=== PATIENT | female | born 1955 | race Caucasian/White ===

== ENCOUNTER 2021-03-21 09:07 | Emergency (ER) | payer MEDICARE, SELFPAY ==
--- NOTE | ~2021-03-21 | CT_ITS ---
EXAMINATION: CT ANGIOGRAM OF THE CHEST WITH AND WITHOUT CONTRAST (CT PULMONARY ANGIOGRAM FOR PE) CLINICAL INFORMATION: Reason for Exam Right-sided pleuritic pain, right chest wall tenderness COMPARISON: The report of CT angiography of the chest 08/30/12 is no pulmonary embolus TECHNIQUE: Prior to contrast administration, noncontrast localization images were obtained. Subsequently, multidetector volumetric imaging was performed from the thoracic inlet to below the diaphragms following the administration of 65 mL Omnipaque 350 intravenous contrast. No contrast reaction reported Sagittal, coronal, and MIP oblique sagittal reformatted images were obtained on the CT workstation, uploaded to PACS, and reviewed. This CT examination was performed using dose optimization techniques as appropriate, variously including the following: *Automated exposure control *Adjustment of mA and/or kV according to patient size (this includes techniques or standardized protocols for targeted exams where dose is matched to indication/reason for exam; i.e. extremities or head) *Use of iterative reconstruction technique Total exam dose-length product 315 mGy-cm FINDINGS: Digital washer meat: Devices overlie the patient. Mild tortuosity of the aorta. There is no consolidation or edema. QUALITY OF STUDY/CONTRAST BOLUS: Satisfactory. There is some artifact limiting fine detail. PULMONARY ARTERIES: No pulmonary embolus demonstrated. The main pulmonary arteries are normal caliber THORACIC AORTA: There is motion artifact. There is calcified and noncalcified plaque in the thoracic aorta including the aortic arch. LUNG: Limited by motion particularly in the lower lung zones. There is a 0.3 cm peripheral nodule in the anterolateral left upper lobe (series 7, image 149). This is unchanged when compared to 08/30/12 and there 4 does not require any further evaluation. There is a lung cyst in the posterolateral left costophrenic sulcus region. There could be some mild centrilobular emphysema. PLEURA: There is no pleural fluid or pneumothorax. MEDIASTINUM: There are no enlarged mediastinal or hilar lymph nodes. The esophagus wall is mildly prominent but nonspecific. No evidence of septal bowing or right heart strain. CHEST WALL/AXILLA: No axillary or internal mammary lymphadenopathy. OSSEOUS STRUCTURES: Healed lateral lower right rib fracture. No definite acute rib fracture demonstrated. Mild degenerative change in the lower thoracic spine. UPPER ABDOMEN: There is unchanged thickening of the left adrenal gland which could be related to hyperplasia. On the lowest images there is a fat attenuating structure between the gallbladder, abdominal wall, stomach and colon. This could represent an omental infarct of uncertain chronicity. This area was either not present or not demonstrated on 09/12/14 No reflux of contrast into the hepatic veins to suggest elevated right heart pressures. CT/CT angio chest PE protocol IMPRESSION: No pulmonary embolus demonstrated. Atherosclerosis of the aorta. There is an age indeterminate probable omental infarct in the right upper abdomen. VTE: negative
[2021-03-21 09:08] VITALS: BP 122/71; PULSE 98; RESP 14; TEMP 36.8; O2SAT 95; BMI 25.5
[2021-03-21 09:14] VITALS: RESP 14
--- NOTE | 2021-03-21 09:21 | ECG_ITS ---
Test Reason : CP Blood Pressure : / mmHG Vent. Rate : 087 BPM Atrial Rate : 087 BPM P-R Int : 152 ms QRS Dur : 094 ms QT Int : 376 ms P-R-T Axes : 074 067 013 degrees QTc Int : 452 ms Normal sinus rhythm Anteroseptal infarct , age undetermined Abnormal ECG When compared with ECG of 30-AUG-2012 13:39, Nonspecific T wave abnormality, worse in Inferior leads Referred By: Dimitrios Fitch Electronically Signed By:BRET GLASER
--- NOTE | 2021-03-21 09:26 | ED.CHESTPAIN ---
HPI - Chest Pain General Chief Complaint: Chest Pain Stated Complaint: r sided back/chest pain Time Seen by Provider: 03/21/21 09:21 Source: patient Mode of arrival: EMS Limitations: no limitations History of Present Illness HPI narrative: 65-year-old female who presents emergency department for evaluation of right sided pleuritic chest pain radiating to her right posterior chest x3 days. Patient states that the pain came on suddenly 3 days prior. She states that she woke up with the pain. She states the pain has been constant but waxes and wanes in intensity. The pain is a stabbing sensation which is currently 10/10. The pain is worse with movement and with breathing. Patient states the pain feels similar to the pain that she was experiencing when she fractured ribs on the right side of her chest 4 years prior. She denies any recent injury or fall. She denied fever, chills, cough. She states she has been having some pain in her right calf x3 days but that has any injury. She believes the right calf may be slightly swollen. She is not on hormone replacement. She denies any recent travel. She has not had a blood clot in the past. Patient does have chronic pain and takes oxycodone for her pain. She states that oxycodone has not been helping with her current chest pain. Related Data Previous Rx's Medication Instructions Recorded hydromorphone 2 mg PO Q4-6H PRN #12 tab 03/21/21 prednisone 60 mg PO DAILY 5 Days #15 tab 03/21/21 Allergies Allergy/AdvReac Type Severity Reaction Status Date / Time No Known Allergies Allergy Mild NOT Verified 03/21/21 09:48 APPLICABLE Review of Systems Review of Systems: Yes all other systems are reviewed and are negative [facility] Past Medical History [facility] Narrative: Past medical history: Diabetes mellitus, hypertension, right-sided rib fractures 4 years prior. Past surgical history: Patient states that she had a back surgery in June 2020. Chest states she had a right wrist surgery in January 2020. Social history: She lives at home with her son. She denies tobacco, alcohol and drug use. Social History Social History Alcohol intake: unknown Patient Tobacco Use Status: Tobacco use Unknown Use of substances other than those prescribed or required for medical reasons: No Advance Directives: Yes Advance Directives Information Provided: No Advance Directives on File: No Physical Exam Vital Signs: Vital Signs: Last Vital Signs Temp 98.3 F 03/21/21 09:08 Pulse 89 03/21/21 11:37 Resp 20 03/21/21 11:37 BP 103/55 L 03/21/21 11:37 Pulse Ox 99 03/21/21 11:37 Body Mass Index 25.5 Const: General: cooperative and in distress (Secondary to chest pain) moderate Orientation/consciousness: oriented to person and oriented to place Limitations: no limitations HENMT: Head: Yes normal to inspection, Yes normocephalic and Yes atraumatic Ears: external ears normal General nose exam: Normal external nose present Face and sinus: Yes normal facial exam Mouth: Normal oral and palatal mucosa present Throat: Yes posterior oropharynx normal Eyes: Periorbital: periorbital findings normal Eyelids: Yes eyelids normal Conjunctivae: conjunctivae normal Sclerae: sclerae normal Corneas: corneas normal Pupils: Equal, round and reactive pupils present Direct Ophthalmoscopy: normal light reflex Neck: Neck: Yes full ROM, Yes no lymphadenopathy, Yes no meningeal signs, Yes trachea midline and Yes supple Chest: Chest palpation & inspection: normal inspection of the chest and tenderness (Right anterior and posterior chest) Resp: Effort & Inspection: normal respiratory effort and able to speak in complete sentences Auscultation: clear to auscultation bilaterally Cardio: Rate: regular rate Rhythm: regular rhythm Heart sounds: S1 normal heart sound present, S2 normal heart sound present and no murmurs GI: Inspection: Yes normal to inspection Palpation (GI): Soft to palpation, nontender, no guarding, not rigid and No hepatosplenomegaly present : General: Yes no CVA tenderness Back/Spine/Pelvis: Back: no CVA tenderness Cervical Spine: normal cervical lordosis Thoracic/Lumbar Spine: thoracic and lumbar spine normal to inspection Skin: Lesions: no lesions Rashes: no rashes Wounds: no wounds Neuro: General: oriented to person, oriented to place and no meningeal signs Cranial nerves: Yes CN's II-XII intact bilaterally and Yes Equal, round and reactive pupils present Cognition (Neuro): normal cognition Motor exam (neuro): 5/5 motor strength present throughout Extrem: Other: Mild right calf tenderness compared to the left, no significant difference in the size of her to lower extremities noted, negative Homans sign. Extremities are neurovascular intact Psych: Appearance: well kempt Mental Status: mental status grossly normal Speech and movement: Normal speech and movement present Affect: normal affect Attitude: cooperative Thought process: Normal thought process present Thought content: Normal thought content present Course Course Course Narrative: 65-year-old female who presents emergency department for evaluation of right-sided pleuritic chest pain which is worse with breathing and movement, pain started suddenly 3 days prior and has been constant with waxing and waning intensity. Patient also noted right calf pain x3 days. Patient appear to be in distress secondary to her pain. Vital signs were normal with a pulse of 98 , respiratory rate of 14 and O2 saturation of 95% on room Physical examination did reveal right sided chest wall tenderness. Differential includes but is not limited to rib fractures, pulmonary embolism, aortic dissection, chest wall inflammation. I ordered a CBC, CMP, D-dimer, troponin, EKG. I will obtain a CT pulmonary angiogram to rule out PE. Patient's pain was treated with Toradol 30 mg IV, morphine 4 mg IV. She was also given Zofran 4 mg IV for nausea and 1 L of normal saline IV. 1254: The patient got minimal relief from the IV morphine and IV Toradol. She required Dilaudid 1 mg IV x2. The patient's laboratory evaluation did revealed mild anemia with an H&H of 12.2 and 34.7. Patient did have an elevated D-dimer of 292. High sensitivity troponin was below detectable limits. CT scan pulmonary angiogram did not reveal acute findings to explain the patient's pain, patient does have some inflammatory changes between the gallbladder and the abdominal wall which the radiologist felt could be secondary to an omental infarct however the patient does not have tenderness in this area and I suspect that this is an incidental finding. The patient continues to have right-sided chest wall tenderness no suspect that she has acute costochondritis versus pleurisy. The patient was given Decadron 10 mg IV. She will be started on prednisone 60 mg once a day for 5 days. The patient is having severe pain and is on chronic narcotics that are not helping her pain, therefore I will prescribe Dilaudid 2 mg every 4-6 hours as needed for pain, dispense 10 tablets. She was advised to stop her other narcotic medications while she is taking Dilaudid. MDM - Chest Pain Lab Data Result diagrams: 03/21/21 09:35 03/21/21 09:35 Labs: Lab Results 03/21/21 03/21/21 03/21/21 Range/Units 09:35 09:35 09:35 WBC 6.7 (4.8-10.8) X10*3/uL RBC 3.61 L (4.20-5.50) X10*6/uL Hgb 11.2 L (12.0-16.0) g/dl Hct 34.7 L (37-47) % MCV 96.1 (80-98) fL MCH 31.0 (27.0-33.0) pg MCHC 32.3 (31.0-35.0) g/dl RDW 13.8 (11.0-16.0) % Plt Count 276 (160-400) X10*3/uL MPV 9.9 (9.4-12.3) fL Immature Gran % (Auto) 0.1 (0.0-0.4) % Neut % (Auto) 58.7 (45-73) % Lymph % (Auto) 28.4 (20-40) % [place] % (Auto) 9.1 (2-11) % Eos % (Auto) 3.4 (0-4) % Baso % (Auto) 0.3 (0-2) % Lymph # (Auto) 1.9 (1.2-4.9) X10*3/uL [place] # (Auto) 0.6 (0.1-1.2) X10*3/uL Eos # (Auto) 0.2 (0.0-0.4) X10*3/uL Baso # (Auto) 0.0 (0.0-0.2) X10*3/uL Abs Immat Gran (auto) 0.01 (0.00-0.03) X10*3/uL Absolute Neuts (auto) 3.9 (2.0-8.3) X10*3/uL Absolute Nucleated RBC 0.000 (0.0-0.012) X10*3/uL Nucleated RBC % (auto) 0.0 (0.0-0.2) /100WBC D-Dimer 292 NG/ML Sodium 141 (135-145) mmol/L Potassium 4.5 (3.3-5.1) mmol/L Chloride 105 (96-108) mmol/L Carbon Dioxide 29 (22-29) mmol/L Anion Gap 12 (12-20) BUN 15 (9-16) mg/dL Creatinine 0.74 (0.5-1.4) mg/dL Estim Creat Clear Calc 70.6 Estimated GFR > 60 Random Glucose 92 (60-115) mg/dL Calcium 8.4 (8.4-10.2) mg/dL Total Bilirubin 0.5 (0.0-1.0) mg/dL AST 20 (5-31) U/L ALT 15 (0-31) U/L Alkaline Phosphatase 51 (39-117) U/L Troponin I High Sens (<3.5-17.0) ng/L Total Protein 5.7 L (6.5-8.0) g/dL Albumin 3.6 (3.5-5.0) g/dL Lipase 50 (8-78) U/L 03/21/21 Range/Units 09:35 WBC (4.8-10.8) X10*3/uL RBC (4.20-5.50) X10*6/uL Hgb (12.0-16.0) g/dl Hct (37-47) % MCV (80-98) fL MCH (27.0-33.0) pg MCHC (31.0-35.0) g/dl RDW (11.0-16.0) % Plt Count (160-400) X10*3/uL MPV (9.4-12.3) fL Immature Gran % (Auto) (0.0-0.4) % Neut % (Auto) (45-73) % Lymph % (Auto) (20-40) % [place] % (Auto) (2-11) % Eos % (Auto) (0-4) % Baso % (Auto) (0-2) % Lymph # (Auto) (1.2-4.9) X10*3/uL [place] # (Auto) (0.1-1.2) X10*3/uL Eos # (Auto) (0.0-0.4) X10*3/uL Baso # (Auto) (0.0-0.2) X10*3/uL Abs Immat Gran (auto) (0.00-0.03) X10*3/uL Absolute Neuts (auto) (2.0-8.3) X10*3/uL Absolute Nucleated RBC (0.0-0.012) X10*3/uL Nucleated RBC % (auto) (0.0-0.2) /100WBC D-Dimer NG/ML Sodium (135-145) mmol/L Potassium (3.3-5.1) mmol/L Chloride (96-108) mmol/L Carbon Dioxide (22-29) mmol/L Anion Gap (12-20) BUN (9-16) mg/dL Creatinine (0.5-1.4) mg/dL Estim Creat Clear Calc Estimated GFR Random Glucose (60-115) mg/dL Calcium (8.4-10.2) mg/dL Total Bilirubin (0.0-1.0) mg/dL AST (5-31) U/L ALT (0-31) U/L Alkaline Phosphatase (39-117) U/L Troponin I High Sens < 3.5 (<3.5-17.0) ng/L Total Protein (6.5-8.0) g/dL Albumin (3.5-5.0) g/dL Lipase (8-78) U/L ECG Data ECG #1: Interpretation: 0944: Normal sinus rhythm rate of 87, normal [place] interval, QRS duration and QTC interval. Q-waves V1, V2 and V3, no ST segment elevation, no ST segment depression. No PACs, no PVCs. EKG is consistent with an anteroseptal infarct, most likely old Discharge Plan Discharge Clinical Impression: Acute costochondritis Patient Disposition: Home, Self-Care Instructions: Costochondritis (ED) Additional Instructions: Your blood work was normal except for mild anemia. The CT scan of your chest revealed old rib fractures but no evidence of new rib fractures or blood clots in your lungs which is reassuring. There is an incidental finding of inflammation of the fat in your right upper abdomen but I do not think this is the cause of your chest pain. Your chest pain is most likely caused by inflammation of the chest wall joints (costochondritis) or inflammation of the lining of the lung (pleurisy) The treatment for these conditions is anti-inflammatory medications therefore I am starting you on prednisone 20 mg pills, 3 pills once a day for 5 days. Start your 1st dose tomorrow morning. While you are taking prednisone do not take any other anti-inflammatory medications such as naproxen, Aleve, ibuprofen, Motrin, Advil or aspirin. Given the severity of your pain I am prescribing Dilaudid (hydromorphone) 2 mg pills, take 1 pill every 4-6 hours as needed for pain. While you are taking this narcotic medication I want to to stop your other narcotic medications (oxycodone, hydrocodone). Follow-up with your doctor in 2 days. Please return to the emergency department if your symptoms get worse or if you develop any symptoms that are concerning to you. Prescriptions: New hydromorphone 2 mg tablet 2 mg PO Q4-6H PRN (Reason: pain) Qty: 12 RF: 0 prednisone 20 mg tablet 60 mg PO DAILY 5 Days Qty: 15 RF: 0 Interventions: ED Discharge Assessment Last Done: 03/21/21 14:02 Discharge Date/Time: 03/21/21 14:02
[2021-03-21] MEDS: Ketorolac Tromethamine 30 MG/ML VIAL IVPUSH (09:36)
[2021-03-21] MEDS: Morphine Sulfate 4 MG/ML CARTRIDGE IVPUSH (09:36)
[2021-03-21] MEDS: ondansetron HCL 4 MG/2 ML VIAL IVPUSH (09:36)
[2021-03-21] MEDS: 0.9 % Sodium Chloride 1,000 ML 999 ML IV (09:39)
[2021-03-21 09:45] LABS: MANUAL DIFF FLAG NO
[2021-03-21 10:02] VITALS: BP 112/60; PULSE 88; RESP 17; O2SAT 100
[2021-03-21 10:03] LABS: Alanine Aminotransferase 15 U/L (0-31); Albumin Level 3.6 g/dL (3.5-5.0); Alkaline Phosphatase 51 U/L (39-117); Anion Gap 12 (12-20); Aspartate Amino Transferase 20 U/L (5-31); Bilirubin Total 0.5 mg/dL (0.0-1.0); Blood Urea Nitrogen 15 mg/dL (9-16); Calcium 8.4 mg/dL (8.4-10.2); Carbon Dioxide 29 mmol/L (22-29); Chloride 105 mmol/L (96-108); Creatinine Clr Calc Pharmacy 70.6; Estimated Glomerular Filt Rate > 60; Glucose Random 92 mg/dL (60-115); Lipase 50 U/L (8-78); Potassium 4.5 mmol/L (3.3-5.1); Sodium 141 mmol/L (135-145); Total Protein 5.7 g/dL (6.5-8.0)
[2021-03-21 10:06] LABS: Troponin-I High Sensitivity < 3.5 ng/L (<3.5-17.0)
[2021-03-21 10:07] LABS: Basophils Percent Auto 0.3 % (0-2); Eosinophils Absolute Auto 0.2 X10*3/uL (0.0-0.4); Eosinophils Percent Auto 3.4 % (0-4); Hematocrit 34.7 % (37-47); Hemoglobin 11.2 g/dl (12.0-16.0); Imm Gran Abs Auto 0.01 X10*3/uL (0.00-0.03); Imm Gran Pct Auto 0.1 % (0.0-0.4); Lymphocytes Absolute Auto 1.9 X10*3/uL (1.2-4.9); Lymphocytes Percent Auto 28.4 % (20-40); Mean Corpuscular HGB Conc 32.3 g/dl (31.0-35.0); Mean Corpuscular Volume 96.1 fL (80-98); Mean Platelet Volume 9.9 fL (9.4-12.3); Monocytes Absolute Auto 0.6 X10*3/uL (0.1-1.2); Monocytes Percent Auto 9.1 % (2-11); Neutrophils Absolute Auto 3.9 X10*3/uL (2.0-8.3); Neutrophils Percent Auto 58.7 % (45-73); Platelet Count 276 X10*3/uL (160-400); Red Blood Count 3.61 X10*6/uL (4.20-5.50); Red Cell Distribution Width 13.8 % (11.0-16.0); White Blood Count 6.7 X10*3/uL (4.8-10.8)
--- NOTE | 2021-03-21 10:08 | PC.NURSE ---
Patient given IV morphine, IV torodal and IV zofran for 1010 pain - pt reassessed and still c/o 07/18 pain with no relief
[2021-03-21 10:14] LABS: D Dimer 292 NG/ML
[2021-03-21] MEDS: iohexoL 350 MG/ML 100 ML INFUS..BTL IV (11:17)
[2021-03-21] MEDS: HYDROmorphone HCl 1 MG/ML SYRINGE IVPUSH ×2 (11:28→13:04)
[2021-03-21 11:37] VITALS: BP 103/55; PULSE 89; RESP 20; O2SAT 99
--- NOTE | 2021-03-21 12:43 | PC.NURSE ---
Patient ambulate to restroom with standby assist of the nurse. Patient has slow but steady gait requiring no assistance.
== END 2021-03-21 14:02 | disposition home or self-care (01) ==
PROVIDERS: Emergency Provider Emergency Medicine Emergency Medical Services
DX: M94.0 Chondrocostal junction syndrome [Tietze] (principal); M79.661 Pain in right lower leg; G89.29 Other chronic pain; Z79.891 Long term (current) use of opiate analgesic; E11.9 Type 2 diabetes mellitus without complications; I10 Essential (primary) hypertension
CPT/HCPCS: 36415; 71275; 80053; 83690; 84484; 85025; 85379; 93005; 96361; 96374; 96375; 96376; 99285; J1100; J1170; J1885; J2270; J2405; Q9967

== ENCOUNTER 2021-09-13 17:12 | Emergency (ER) | payer MEDICARE, SELFPAY ==
--- NOTE | ~2021-09-13 | XR_ITS ---
EXAMINATION: XR CHEST CLINICAL INFORMATION: Chest pain COMPARISON: CT angiogram chest 03/21/2021 TECHNIQUE: Frontal view of the chest was obtained. FINDINGS: No significant abnormality is noted involving the heart, lungs, mediastinum, bony thorax or soft tissues. XR/XR chest 1V IMPRESSION: Unremarkable examination.
--- NOTE | ~2021-09-13 | CT_ITS ---
EXAMINATION: CTA CHEST PE STUDY CLINICAL INFORMATION: pleuritic chest pain with positive ddimer COMPARISON: 03/21/2021 TECHNIQUE: Prior to contrast administration, noncontrast localization images were obtained. After the administration of 61 mL of Omnipaque nonionic IV contrast, contiguous thin slice helical images were obtained through the thorax. Reformatted MIP images in the coronal and sagittal planes were obtained at the acquisition workstation. This CT examination was performed using dose optimization techniques as appropriate, variously including the following: *Automated exposure control *Adjustment of mA and/or kV according to patient size (this includes techniques or standardized protocols for targeted exams where dose is matched to indication/reason for exam; i.e. extremities or head) *Use of iterative reconstruction technique DLP: 248 mGy-cm. FINDINGS: The bolus timing on this study was acceptable for visualization of the pulmonary arterial tree. There are no intraluminal pulmonary arterial filling defects present to suggest pulmonary embolism. Incidental distal mucous impacted bronchi in the posterior right lower lobe incidentally seen but no suspicious focal airspace disease. No abnormal pulmonary nodules or masses are appreciated. No significant hilar or mediastinal adenopathy. There is no evidence of pleural effusion or pneumothorax. The heart is normal in size. No evidence of ventricular septal bowing or right heart strain. Great vessels are normal. Otherwise the mediastinum is unremarkable. There is no pericardial effusion or pericardial thickening. Limited evaluation of the upper abdominal viscera demonstrates a well-demarcated focal fatty region anterior to the liver edge possibly representing an area of prior fat necrosis similar to the study in retrospect. CT/CT angio chest PE protocol IMPRESSION: No evidence for pulmonary emboli. No suspicious focal airspace disease. VTE: Negative
--- NOTE | 2021-09-13 17:17 | ECG_ITS ---
Test Reason : CHEST PAIN Blood Pressure : / mmHG Vent. Rate : 085 BPM Atrial Rate : 085 BPM P-R Int : 154 ms QRS Dur : 090 ms QT Int : 382 ms P-R-T Axes : 083 046 019 degrees QTc Int : 454 ms Normal sinus rhythm Septal infarct (cited on or before 21-MAR-2021) Abnormal ECG When compared with ECG of 21-MAR-2021 09:44, Nonspecific T wave abnormality, improved in Inferior leads Referred By: Generic ED Physician Electronically Signed By:Rajan Robertson
[2021-09-13 17:25] VITALS: BP 154/94; PULSE 107; RESP 20; TEMP 36.6; O2SAT 96; BMI 25.2
[2021-09-13 18:09] LABS: MANUAL DIFF FLAG NO
[2021-09-13 18:11] LABS: Basophils Percent Auto 0.3 % (0-2); Eosinophils Absolute Auto 0.1 X10*3/uL (0.0-0.4); Eosinophils Percent Auto 1.2 % (0-4); Hematocrit 38.7 % (37.0-47.0); Hemoglobin 12.3 g/dl (12.0-16.0); Imm Gran Abs Auto 0.02 X10*3/uL (0.00-0.03); Imm Gran Pct Auto 0.3 % (0.0-0.4); Lymphocytes Absolute Auto 1.5 X10*3/uL (1.2-4.9); Lymphocytes Percent Auto 25.9 % (20-40); Mean Corpuscular HGB Conc 31.8 g/dl (31.0-35.0); Mean Corpuscular Hemoglobin 29.1 pg (27.0-33.0); Mean Corpuscular Volume 91.7 fL (80.0-98.0); Mean Platelet Volume 9.3 fL (9.4-12.3); Monocytes Absolute Auto 0.5 X10*3/uL (0.1-1.2); Monocytes Percent Auto 8.7 % (2-11); Neutrophils Absolute Auto 3.8 x10*3/uL (2.0-8.3); Neutrophils Percent Auto 63.6 % (45-73); Platelet Count 372 X10*3/uL (160-400); Red Blood Count 4.22 X10*6/uL (4.20-5.50); Red Cell Distribution Width 13.9 % (11.0-16.0)
[2021-09-13 18:24] LABS: Anion Gap 12 (12-20); Blood Urea Nitrogen 11 mg/dL (9-16); Calcium 9.5 mg/dL (8.4-10.2); Carbon Dioxide 27 mmol/L (22-29); Chloride 105 mmol/L (96-108); Creatinine Clr Calc Pharmacy 69.3; Estimated Glomerular Filt Rate > 60; Glucose Random 181 mg/dL (60-115); Potassium 4.3 mmol/L (3.3-5.1); Sodium 140 mmol/L (135-145)
[2021-09-13 18:31] LABS: Troponin-I High Sensitivity < 3.5 ng/L (<3.5-17.0)
--- NOTE | 2021-09-13 19:36 | ED.CHESTPAIN ---
HPI - Chest Pain General Chief Complaint: Chest Pain <Robin Murphy MD - Last Filed: 09/13/21 19:47> Stated Complaint: CHEST PAIN <Robin Murphy MD - Last Filed: 09/13/21 19:47> Time Seen by Provider: 09/13/21 19:36 <Robin Murphy MD - Last Filed: 09/13/21 19:47> Source: patient <Robin Murphy MD - Last Filed: 09/13/21 19:47> Mode of arrival: ambulatory <Robin Murphy MD - Last Filed: 09/13/21 19:47> Limitations: no limitations <Robin Murphy MD - Last Filed: 09/13/21 19:47> History of Present Illness HPI narrative: patient states that she has stabbing pain to her chest, pain started after she lost money and she feels it maybe from stress. patient claims pain with shortness of breath, also states she has a bulging disk in her back that is causing her problems <Robin Murphy MD - Last Filed: 09/13/21 19:47> MD complaint: chest pain <Robin Murphy MD - Last Filed: 09/13/21 19:47> Onset (ago): day(s) <Robin Murphy MD - Last Filed: 09/13/21 19:47> Timing of current episode: constant <Robin Murphy MD - Last Filed: 09/13/21 19:47> Onset: during rest and during exertion <Robin Murphy MD - Last Filed: 09/13/21 19:47> Pain location: left chest <Robin Murphy MD - Last Filed: 09/13/21 19:47> Pain radiation: back <Robin Murphy MD - Last Filed: 09/13/21 19:47> Severity: moderate <Robin Murphy MD - Last Filed: 09/13/21 19:47> Quality: sharp <Robin Murphy MD - Last Filed: 09/13/21 19:47> Relieving factors: nothing <Robin Murphy MD - Last Filed: 09/13/21 19:47> Exacerbating factors: movement <Robin Murphy MD - Last Filed: 09/13/21 19:47> Related Data Home Medications: Previous Rx's Medication Instructions Recorded hydromorphone 2 mg tablet 2 mg PO Q4-6H PRN #12 tab 03/21/21 prednisone 20 mg tablet 60 mg PO DAILY 5 Days #15 tab 03/21/21 <Robin Murphy MD - Last Filed: 09/13/21 19:47> Allergies/Adverse Reactions: Allergies Allergy/AdvReac Type Severity Reaction Status Date / Time No Known Allergies Allergy Mild NOT Verified 03/21/21 09:48 APPLICABLE <Robin Murphy MD - Last Filed: 09/13/21 19:47> Review of Systems Constitutional: Constitutional: Reports no additional constitutional complaints <Robin Murphy MD - Last Filed: 09/13/21 19:47> Eyes: Eyes: Reports no additional eye complaints <Robin Murphy MD - Last Filed: 09/13/21 19:47> ENT: Denies dizziness <Robin Murphy MD - Last Filed: 09/13/21 19:47> Cardiovascular: Cardiovascular: Reports no additional cardiovascular complaints <Robin Murphy MD - Last Filed: 09/13/21 19:47> Respiratory: Respiratory: Reports as per HPI <Robin Murphy MD - Last Filed: 09/13/21 19:47> Gastrointestinal: Gastrointestinal: Reports no additional gastrointestinal complaints <Robin Murphy MD - Last Filed: 09/13/21 19:47> Genitourinary: Genitourinary: Reports no additional female genitourinary complaints <Robin Murphy MD - Last Filed: 09/13/21 19:47> Musculoskeletal: Musculoskeletal: Reports no additional musculoskeletal complaints <Robin Murphy MD - Last Filed: 09/13/21 19:47> Integumentary/Breasts: Skin/Breast: Denies rash <Robin Murphy MD - Last Filed: 09/13/21 19:47> Neurologic: Reports system reviewed and no additional complaints, except as documented, Denies dizziness and Denies Sensory deficit (Neuro) <Robin Murphy MD - Last Filed: 09/13/21 19:47> Psychiatric: Psychiatric: Denies anxiety <Robin Murphy MD - Last Filed: 09/13/21 19:47> [facility] Social History Social History: Social History Alcohol intake: unknown Patient Tobacco Use Status: Tobacco use Unknown Advance Directives: No Advance Directives Information Provided: Yes <Robin Murphy MD - Last Filed: 09/13/21 19:47> Physical Exam Vital Signs: Vital Signs: Last Vital Signs Temp 97.8 F 09/13/21 17:25 Pulse 107 H 09/13/21 17:25 Resp 20 09/13/21 17:25 BP 154/94 H 09/13/21 17:25 Pulse Ox 96 09/13/21 17:25 BMI result Body Mass Index 25.2 <Robin Murphy MD - Last Filed: 09/13/21 19:47> Vital Signs: Last Vital Signs Temp 97.8 F 09/13/21 17:25 Pulse 107 H 09/13/21 17:25 Resp 20 09/13/21 17:25 BP 154/94 H 09/13/21 17:25 Pulse Ox 96 09/13/21 17:25 BMI result Body Mass Index 25.2 <Diana Robertson MD - Last Filed: 09/13/21 22:33> Const: Other: patient slightly unkept with pain out of proportion to physical findings <Robin Murphy MD - Last Filed: 09/13/21 19:47> Nutritional Appearance: average body habitus <Robin Murphy MD - Last Filed: 09/13/21 19:47> Orientation/consciousness: oriented to person and patient oriented x3 <Robin Murphy MD - Last Filed: 09/13/21 19:47> Limitations: no limitations <Robin Murphy MD - Last Filed: 09/13/21 19:47> HENMT: Head: Yes normal to inspection <Robin Murphy MD - Last Filed: 09/13/21 19:47> Ears: external ears normal <Robin Murphy MD - Last Filed: 09/13/21 19:47> General nose exam: Normal external nose present <Robin Murphy MD - Last Filed: 09/13/21 19:47> Mouth: Normal oral and palatal mucosa present and oropharynx normal <Robin Murphy MD - Last Filed: 09/13/21 19:47> Throat: Yes posterior oropharynx normal <Robin Murphy MD - Last Filed: 09/13/21 19:47> Eyes: General: appearance normal, both eyes and all related structures <Robin Murphy MD - Last Filed: 09/13/21 19:47> Neck: Other: supple <Robin Murphy MD - Last Filed: 09/13/21 19:47> Neck: Yes normal visual inspection <Robin Murphy MD - Last Filed: 09/13/21 19:47> Chest: Chest palpation & inspection: normal inspection of the chest <Robin Murphy MD - Last Filed: 09/13/21 19:47> Resp: Auscultation: clear to auscultation bilaterally <Robin Murphy MD - Last Filed: 09/13/21 19:47> Cardio: Jugular venous distension: no JVD <Robin Murphy MD - Last Filed: 09/13/21 19:47> Rate: regular rate <Robin Murphy MD - Last Filed: 09/13/21 19:47> Rhythm: regular rhythm <Robin Murphy MD - Last Filed: 09/13/21 19:47> Heart sounds: S1 normal heart sound present and S2 normal heart sound present <Robin Murphy MD - Last Filed: 09/13/21 19:47> GI: Inspection: Yes normal to inspection <Robin Murphy MD - Last Filed: 09/13/21 19:47> Palpation (GI): Soft to palpation, nontender and No hepatosplenomegaly present <Robin Murphy MD - Last Filed: 09/13/21 19:47> Auscultation: normal bowel sounds <Robin Murphy MD - Last Filed: 09/13/21 19:47> : General: Yes no CVA tenderness <MD Delbert Schaefer Last Filed: 09/13/21 19:47> Back/Spine/Pelvis: Back: no CVA tenderness <Robin Murphy MD - Last Filed: 09/13/21 19:47> Skin: General skin exam: no rashes or lesions noted <Robin Murphy MD - Last Filed: 09/13/21 19:47> Neuro: General: oriented to person and patient oriented x3 <Robin Murphy MD - Last Filed: 09/13/21 19:47> Cranial nerves: Yes CN's II-XII intact bilaterally <Robin Murphy MD - Last Filed: 09/13/21 19:47> Motor exam (neuro): 5/5 motor strength present throughout <Robin Murphy MD - Last Filed: 09/13/21 19:47> Sensory Exam: No Sensory deficit (Neuro) <Robin Murphy MD - Last Filed: 09/13/21 19:47> Extrem: General: Yes normal to inspection <Robin Murphy MD - Last Filed: 09/13/21 19:47> Psych: Other: dramatic <Robin Murphy MD - Last Filed: 09/13/21 19:47> Course Course Course Narrative: I received sign-out from Dr. Murphy. CT for PE negative for DVT. I discussed the results with the patient, patient states that she feels much better now. Patient ready for discharge <Diana Robertson MD - Last Filed: 09/13/21 22:33> MDM - Chest Pain Lab Data Result diagrams: : 09/13/21 18:02 09/13/21 18:02 <Robin Murphy MD - Last Filed: 09/13/21 19:47> Labs: Lab Results 09/13/21 09/13/21 09/13/21 Range/Units 18:02 18:02 18:02 WBC 6.0 (4.8-10.8) X10*3/uL RBC 4.22 (4.20-5.50) X10*6/uL Hgb 12.3 (12.0-16.0) g/dl Hct 38.7 (37.0-47.0) % MCV 91.7 (80.0-98.0) fL MCH 29.1 (27.0-33.0) pg MCHC 31.8 (31.0-35.0) g/dl RDW 13.9 (11.0-16.0) % Plt Count 372 (160-400) X10*3/uL MPV 9.3 L (9.4-12.3) fL Immature Gran % (Auto) 0.3 (0.0-0.4) % Neut % (Auto) 63.6 (45-73) % Lymph % (Auto) 25.9 (20-40) % Wilkes % (Auto) 8.7 (2-11) % Eos % (Auto) 1.2 (0-4) % Baso % (Auto) 0.3 (0-2) % Lymph # (Auto) 1.5 (1.2-4.9) X10*3/uL Wilkes # (Auto) 0.5 (0.1-1.2) X10*3/uL Eos # (Auto) 0.1 (0.0-0.4) X10*3/uL Baso # (Auto) 0.0 (0.0-0.2) X10*3/uL Abs Immat Gran (auto) 0.02 (0.00-0.03) X10*3/uL Absolute Neuts (auto) 3.8 (2.0-8.3) x10*3/uL Absolute Nucleated RBC 0.000 (0.0-0.012) X10*3/uL Nucleated RBC % (auto) 0.0 (0.0-0.2) /100WBC Sodium 140 (135-145) mmol/L Potassium 4.3 (3.3-5.1) mmol/L Chloride 105 (96-108) mmol/L Carbon Dioxide 27 (22-29) mmol/L Anion Gap 12 (12-20) BUN 11 (9-16) mg/dL Creatinine 0.75 (0.5-1.4) mg/dL Estim Creat Clear Calc 69.3 Estimated GFR > 60 Random Glucose 181 H (60-115) mg/dL Calcium 9.5 D (8.4-10.2) mg/dL Troponin I High Sens < 3.5 (<3.5-17.0) ng/L <Robin Murphy MD - Last Filed: 09/13/21 19:47> Lab Results 09/13/21 09/13/21 09/13/21 Range/Units 18:02 18:02 18:02 WBC 6.0 (4.8-10.8) X10*3/uL RBC 4.22 (4.20-5.50) X10*6/uL Hgb 12.3 (12.0-16.0) g/dl Hct 38.7 (37.0-47.0) % MCV 91.7 (80.0-98.0) fL MCH 29.1 (27.0-33.0) pg MCHC 31.8 (31.0-35.0) g/dl RDW 13.9 (11.0-16.0) % Plt Count 372 (160-400) X10*3/uL MPV 9.3 L (9.4-12.3) fL Immature Gran % (Auto) 0.3 (0.0-0.4) % Neut % (Auto) 63.6 (45-73) % Lymph % (Auto) 25.9 (20-40) % Wilkes % (Auto) 8.7 (2-11) % Eos % (Auto) 1.2 (0-4) % Baso % (Auto) 0.3 (0-2) % Lymph # (Auto) 1.5 (1.2-4.9) X10*3/uL Wilkes # (Auto) 0.5 (0.1-1.2) X10*3/uL Eos # (Auto) 0.1 (0.0-0.4) X10*3/uL Baso # (Auto) 0.0 (0.0-0.2) X10*3/uL Abs Immat Gran (auto) 0.02 (0.00-0.03) X10*3/uL Absolute Neuts (auto) 3.8 (2.0-8.3) x10*3/uL Absolute Nucleated RBC 0.000 (0.0-0.012) X10*3/uL Nucleated RBC % (auto) 0.0 (0.0-0.2) /100WBC Sodium 140 (135-145) mmol/L Potassium 4.3 (3.3-5.1) mmol/L Chloride 105 (96-108) mmol/L Carbon Dioxide 27 (22-29) mmol/L Anion Gap 12 (12-20) BUN 11 (9-16) mg/dL Creatinine 0.75 (0.5-1.4) mg/dL Estim Creat Clear Calc 69.3 Estimated GFR > 60 Random Glucose 181 H (60-115) mg/dL Calcium 9.5 D (8.4-10.2) mg/dL Troponin I High Sens < 3.5 (<3.5-17.0) ng/L <Diana Robertson MD - Last Filed: 09/13/21 22:33> Imaging Data Chest x-ray: Radiologist's impression: IMPRESSION: Unremarkable examination. ? <Robin Murphy MD - Last Filed: 09/13/21 19:47> CT PE: Radiologist's impression: FINDINGS: The bolus timing on this study was acceptable for visualization of the pulmonary arterial tree. There are no intraluminal pulmonary arterial filling defects present to suggest pulmonary embolism. Incidental distal mucous impacted bronchi in the posterior right lower lobe incidentally seen but no suspicious focal airspace disease. No abnormal pulmonary nodules or masses are appreciated. No significant hilar or mediastinal adenopathy.? There is no evidence of pleural effusion or pneumothorax. The heart is normal in size. No evidence of ventricular septal bowing or right heart strain. Great vessels are normal. Otherwise the mediastinum is unremarkable.? There is no pericardial effusion or pericardial thickening. Limited evaluation of the upper abdominal viscera demonstrates a well-demarcated focal fatty region anterior to the liver edge possibly representing an area of prior fat necrosis similar to the study in retrospect. CT/CT angio chest PE protocol IMPRESSION: No evidence for pulmonary emboli. No suspicious focal airspace disease. ? VTE: Negative <Diana Robertson MD - Last Filed: 09/13/21 22:33> Discharge Plan Discharge Clinical Impression: Atypical chest pain <Robin Murphy MD - Last Filed: 09/13/21 19:47> Patient Disposition: Home, Self-Care <Robin Murphy MD - Last Filed: 09/13/21 19:47> Instructions: Chest Pain (ED) <Robin Murphy MD - Last Filed: 09/13/21 19:47> Additional Instructions: Please follow-up with your primary care physician tomorrow. If you have any worsening or new symptoms, please return to the emergency room or call 911 <Robin Murphy MD - Last Filed: 09/13/21 19:47> Prescriptions: No Action hydromorphone 2 mg tablet 2 mg PO Q4-6H PRN (Reason: pain) Qty: 12 RF: 0 prednisone 20 mg tablet 60 mg PO DAILY 5 Days Qty: 15 RF: 0 <Robin Murphy MD - Last Filed: 09/13/21 19:47>
[2021-09-13] MEDS: Ketorolac Tromethamine 30 MG/ML VIAL IVPUSH (20:33)
[2021-09-13] MEDS: iohexoL 350 MG/ML 100 ML INFUS..BTL IV (21:04)
[2021-09-13] MEDS: Acetaminophen 325 MG TABLET 975 MG PO (21:18)
--- NOTE | 2021-09-13 21:36 | PC.NURSE ---
pt states she is tired of sitting here and wants to leave
== END 2021-09-13 22:42 | disposition home or self-care (01) ==
PROVIDERS: Emergency Provider Emergency Medicine
DX: R07.89 Other chest pain (principal)
CPT/HCPCS: 36415; 71045; 71275; 80048; 84484; 85025; 93005; 96374; 99283; 99284; J1885; Q9967

== ENCOUNTER 2022-02-07 17:19 | Emergency (ER) | payer MEDICARE, SELFPAY ==
--- NOTE | ~2022-02-07 | XR_ITS ---
EXAMINATION: XR CHEST CLINICAL INFORMATION: Chest wall pain COMPARISON: Chest x-ray 09/13/2021 TECHNIQUE: Frontal portable view of the chest was obtained. 6:30 PM FINDINGS: No significant abnormality is noted involving the heart, lungs, mediastinum, bony thorax or soft tissues. XR/XR chest 1V IMPRESSION: Unremarkable examination.
--- NOTE | ~2022-02-07 | CT_ITS ---
EXAMINATION: CTA CHEST PE STUDY, CT ABDOMEN AND PELVIS CLINICAL INFORMATION: Severe lower back pain. Pelvic pain. Sob, pleuritic cp COMPARISON: 09/13/2021 CT scan TECHNIQUE: Prior to contrast administration, noncontrast localization images were obtained. After the administration of 85 IV contrast, contiguous thin slice helical images were obtained through the thorax. Following this the examination was continued through the abdomen and then pelvis. Reformatted MIP images in the coronal and sagittal planes as well as thin slice reformatted images of coronal and sagittal planes were obtained at the acquisition workstation. This CT examination was performed using dose optimization techniques as appropriate, variously including the following: *Automated exposure control *Adjustment of mA and/or kV according to patient size (this includes techniques or standardized protocols for targeted exams where dose is matched to indication/reason for exam; i.e. extremities or head) *Use of iterative reconstruction technique DLP: 845 mGy-cm. FINDINGS: CHEST: The bolus timing on this study was acceptable for visualization of the pulmonary arterial tree. There are no intraluminal pulmonary arterial filling defects present to suggest pulmonary embolism. The lungs are clear. Small bulla lateral left base. No abnormal pulmonary nodules or masses are appreciated. No significant hilar or mediastinal adenopathy. There is no evidence of pleural effusion or pneumothorax. The heart is normal in size. No evidence of ventricular septal bowing or right heart strain. Vascular calcification within the aorta again noted. There is no pericardial effusion or pericardial thickening. ABDOMEN/PELVIS: Liver, Gallbladder and Biliary Tree: The liver is normal in size, shape, and attenuation. Tiny low-attenuation cyst in the inferior right lobe the liver too small to characterize further but otherwise no significant focal hepatic lesion or biliary ductal dilatation is present. Focal region of probable chronic fat necrosis along the anterior right liver margin similar to the prior study and of no acute significance. The gallbladder is unremarkable with no evidence of radiopaque gallstones, gallbladder wall thickening, or obvious pericholecystic inflammatory changes. Pancreas: Unremarkable. Spleen: Unremarkable. Adrenal Glands: Unremarkable. Kidneys and Ureters: The kidneys are normal in size, shape, and attenuation. No hydronephrosis, hydroureter, or calculi seen. No perinephric stranding. Bladder: Unremarkable. Gastrointestinal Tract: Extensive colonic diverticulosis but no colonic wall thickening or pericolonic inflammatory change to suggest diverticulitis. The appendix is not well delineated on the study. Visualized small bowel grossly unremarkable. Stomach is relatively distended but otherwise unremarkable. Abdominal Wall: No significant hernia is appreciated. Lymphovascular Structures: Vascular calculation within the aorta iliac system. Incidental retroaortic left renal vein. No bulky retroperitoneal or mesenteric adenopathy Pelvic Viscera: Unremarkable. Osseous Structures: Multilevel degenerative changes in the spine with endplate degenerative changes seen in the visualized cervical spine, upper thoracic spine, and lower lumbar spine. CT/CT angio chest PE protocol IMPRESSION: No evidence for pulmonary emboli. No focal airspace disease. No acute intra-abdominal findings. There is diverticulosis but no obvious diverticulitis. Degenerative changes in the spine VTE: Negative
[2022-02-07 17:32] VITALS: BP 116/70; BP 146/94; PULSE 90; PULSE 99; RESP 20; TEMP 36.7; O2SAT 97; BMI 26.5
[2022-02-07 17:36] VITALS: PULSE 98; RESP 20
--- NOTE | 2022-02-07 17:39 | ECG_ITS ---
Test Reason : chest pain Blood Pressure : / mmHG Vent. Rate : 089 BPM Atrial Rate : 089 BPM P-R Int : 156 ms QRS Dur : 092 ms QT Int : 354 ms P-R-T Axes : 074 070 055 degrees QTc Int : 430 ms Normal sinus rhythm Septal infarct (cited on or before 21-MAR-2021) Abnormal ECG When compared with ECG of 13-SEP-2021 17:55, Nonspecific T wave abnormality now evident in Lateral leads Referred By: Generic ED Physician Electronically Signed By:EFRAIN JOHNSON MD
--- NOTE | 2022-02-07 17:48 | ED_ITS ---
HPI - Chest Pain General Chief Complaint: Chest Pain Stated Complaint: R SIDE CP FOR DAYS Time Seen by Provider: 02/07/22 17:39 Source: patient and EMS Mode of arrival: EMS Limitations: no limitations History of Present Illness HPI narrative: This is a 66-year-old female history of diabetes, hypertension, right-sided rib fracture 4 years ago presenting to the emergency department with complaints of right-sided pleuritic chest pain worse with deep breathing and movement that at times radiates to her back X2 weeks. She tells me that this has been going on for the past 2 weeks, she tells me that the pain is a 10/10 stabbing pain and it is horrible. Patient is screaming out in pain during my examination. Patient tells me this has happened to her before however this time it is worse than usual. She denies any recent trauma, shortness of breath, nausea, vomiting, abdominal pain, headache, dizziness, leg swelling, calf pain. MD complaint: chest pain Onset (ago): week(s) (2) Timing of current episode: episodic Prior episodes: Yes Onset: during rest Pain location: right chest Pain radiation: back Severity: severe Pain scale (0-10): 10 Quality: sharp Relieving factors: nothing Exacerbating factors: movement Treatment prior to arrival: none Related Data Previous Rx's Medication Instructions Recorded hydromorphone 2 mg tablet 2 mg PO Q4-6H PRN #12 tab 03/21/21 prednisone 20 mg tablet 60 mg PO DAILY 5 Days #15 tab 03/21/21 lidocaine 5 % topical patch 1 patch TOPICAL DAILY PRN #15 ea 02/07/22 Allergies Allergy/AdvReac Type Severity Reaction Status Date / Time No Known Allergies Allergy Mild NOT Verified 03/21/21 09:48 APPLICABLE Review of Systems Review of Systems: Constitutional : No Weight loss, No Fever, No Chills, No Fatigue, No Malaise ENT/Mouth : No sore throat, No Rhinorrhea Eyes: No Eye Pain, No Swelling, No Redness Cardiovascular : + Chest Pain, No SOB, No Dyspnea on Exertion, No Orthopnea, No Edema, No Palpitations Respiratory : No Cough, No Sputum, No Wheezing Gastrointestinal : No Nausea, No Vomiting, No Diarrhea, No Constipation, No abdominal Pain, No Hematochezia, No Melena Genitourinary : No Dysuria, No Urinary Frequency, No Hematuria, Musculoskeletal : No joint pain, No Myalgias, No Joint Swelling Skin : No Skin Lesions, No rash Neuro : No Weakness, No Numbness, No Dizziness, No Headache Psych : No Anxiety/Panic, No Depression All other systems reviewed and are negative Yes all other systems are reviewed and are negative [facility] Past Medical History Attestation statement: The following information was validated with the patient. Source: old records reviewed and nursing notes reviewed Social History Social History Alcohol intake: unknown Patient Tobacco Use Status: Never used Tobacco Use of substances other than those prescribed or required for medical reasons: No Advance Directives: No Advance Directives Information Provided: No Physical Exam Vital Signs: Vital Signs: Last Vital Signs Temp 98 F 02/07/22 22:49 Pulse 97 02/07/22 22:49 Resp 18 02/07/22 22:49 BP 112/71 02/07/22 22:49 Pulse Ox 96 02/07/22 22:49 BMI result Body Mass Index 26.5 VSS Appearance: Alert.? Oriented X3.? No acute distress.? Patient screaming in pain. Head: Normocephalic, atraumatic, no step-offs or deformities Eyes: Pupils equal, round and reactive to light.? ENT: Pharynx normal.? Neck: Normal inspection.? Neck supple.? CVS: Normal heart rate and rhythm.? Pulses normal.?+ pain with palpation of right sided anterior chest wall no overlying skin changes Respiratory: No respiratory distress.? Breath sounds normal.? Abdomen: Soft and nontender.? Skin: Skin warm and dry.? Normal skin color.? Normal skin turgor.? Extremities: No lower extremity edema.? No calf ttp. 5/5 strength to bilateral upper and lower extremities Back: No midline tenderness, no C-spine tenderness, full range of motion, no CVA tenderness bilaterally Neuro: Oriented X 3.? No motor deficit.? No sensory deficit. CN 2-12 intact Course Reevaluation(s) Reevaluation #1: Patient screaming out that she is having muscle spasms, at this time Valium given. Time: 18:28 Reevaluation #2: Patient noted to have a mild anemia denies rectal bleeding or vomiting blood. magnesium 1.2 patient will be given IV 2 g magnesium, troponin is negative and EKG is nonischemic, unlikely that this is ACS. COVID negative. Ethanol negative. Urine toxicology and UA pending. Time: 21:25 Reevaluation #3: Chest x-ray is unremarkable. CT of the abdomen and pelvis with contrast with no acute intra-abdominal findings. There is diverticulosis but no obvious diverticulitis. There are degenerative changes within the spine. No evidence of pulmonary emboli, no focal airspace disease. CT is negative. Based off patient history and physical examination and pain being reproducible upon palpat ion this is likely costochondritis. At this time patient will be discharged home with education for ibuprofen and Tylenol, and lidocaine patches. Comfortable with discharge home with PCP follow-up. To note patient's presentation is bizarre when staff members approach her she starts screaming in pain however when she is left alone in the room she is quiet and not complaining of pain. I looked at patient's mass pat looks like patient has medications for chronic pain. No need to prescribe opiates at this time. I did speak to a provider from [place] about this patient and explained to them that patient's workup is negative and she will be discharged home. I advised them that she should fo llow-up with them return with new or worsening symptom Time: 21:27 Additional Reevaluation(s): 2300 Urine clean for infection. Toxicology positive for opiates and benzodiazepine. 2308 This patient tells me that the only medication that works for her is Dilaudid and she had it multiple times last time. She does mention to me that last time she got into went home she got picked up by [place] police department because this medication did not hit her right and she was drowsy and had to jump a fence. I do not feel comfortable discharging patient with a narcotic medication prior to discharge. Patient can take her medications at home that have been prescribed for her for chronic pain Repeating mag at this time, told patient if it improves can be discharged due to negative workup. patient tells me that she is not leaving hospital. She is being extremely rude to staff members I was called to the bedside she is sc reaming telling us we killed her son. She is screaming at the past, being very aggressive towards myself, nursing, emergency department technicians. I told patient that she could not be acting like this in an emergency department, and I told her that when she has been medically cleared she is clear for discharge. She tells me she would refuse to leave and she is not moving from her bed I told her if needed will get security to escort her out of the property. 0021 Nursing at the bedside witness patient threw herself on the ground. Stating that now her legs hurt and needs dilauded. Asking for pain medicine. Aggressive, security called to the bedside. 0026 Patients mag improved, will be DC home with PCP follow-up. Advised to return with new or worsening symptoms. Comfortable discharge home MDM - Chest Pain MDM Narrative Medical decision making narrative: [id number] 66-year-old female presents for evaluation of right-sided pleuritic chest pain at times radiating to her back rates it a 10/10 stabbing pain. Physical examination significant for pain with palpation to the right anterior chest wall. No overlying skin changes. Lungs clear. Regular rate and rhythm. Negative Félix bilaterally. Based off patient history and physical exam will rule out PE. MD. Unlikely that this is aortic dissection. Plan at this time is labs, imaging, urine Medical Records Data Attestation: I reviewed the patient's medical records. Lab Data Attestation: I reviewed the patient's lab results. Result diagrams: 02/07/22 18:00 02/07/22 18:00 Labs: Lab Results 02/07/22 02/07/22 02/07/22 Range/Units 18:00 18:00 18:00 WBC 6.2 (4.8-10.8) X10*3/uL RBC 3.47 L (4.20-5.50) X10*6/uL Hgb 10.0 L (12.0-16.0) g/dl Hct 31.3 L (37.0-47.0) % MCV 90.2 (80.0-98.0) fL MCH 28.8 (27.0-33.0) pg MCHC 31.9 (31.0-35.0) g/dl RDW 14.9 (11.0-16.0) % Plt Count 239 D (160-400) X10*3/uL MPV 10.5 (9.4-12.3) fL Immature Gran % (Auto) 0.3 (0.0-0.4) % Neut % (Auto) 62.3 (45-73) % Lymph % (Auto) 24.0 (20-40) % Morgan % (Auto) 11.1 H (2-11) % Eos % (Auto) 1.8 (0-4) % Baso % (Auto) 0.5 (0-2) % Lymph # (Auto) 1.5 (1.2-4.9) X10*3/uL Morgan # (Auto) 0.7 (0.1-1.2) X10*3/uL Eos # (Auto) 0.1 (0.0-0.4) X10*3/uL Baso # (Auto) 0.0 (0.0-0.2) X10*3/uL Abs Immat Gran (auto) 0.02 (0.00-0.03) X10*3/uL Absolute Neuts (auto) 3.9 (2.0-8.3) x10*3/uL Absolute Nucleated RBC 0.000 (0.0-0.012) X10*3/uL Nucleated RBC % (auto) 0.0 (0.0-0.2) /100WBC Sodium 137 (135-145) mmol/L Potassium 3.4 D (3.3-5.1) mmol/L Chloride 103 (96-108) mmol/L Carbon Dioxide 27 (22-29) mmol/L Anion Gap 10 L (12-20) BUN 8 L (9-16) mg/dL Creatinine 0.71 (0.5-1.4) mg/dL Estim Creat Clear Calc 73.9 Estimated GFR > 60 Random Glucose 179 H (60-115) mg/dL Calcium 8.4 D (8.4-10.2) mg/dL Magnesium 1.2 L* (1.6-2.6) mg/dL Total Bilirubin 0.9 (0.0-1.0) mg/dL AST 13 (5-31) U/L ALT 11 (0-31) U/L Alkaline Phosphatase 42 (39-117) U/L Troponin I High Sens (<3.5-17.0) ng/L Total Protein 5.7 L (6.5-8.0) g/dL Albumin 3.5 (3.5-5.0) g/dL Lipase (8-78) U/L Urine Color Urine Appearance Urine pH (5.0-8.0) Ur Specific Milo (1.005-1.025) Urine Protein (NEG-TRACE) MG/DL Urine Glucose (UA) (NEG) MG/DL Urine Ketones (NEG) MG/DL Urine Blood (NEG) Urine Nitrite (NEG) Ur Leukocyte Esterase (NEG) Urine RBC (0) /HPF Urine WBC (0-4) /HPF Ur Squamous Epith Cells /LPF Urine Bacteria /LPF Urine Opiates Screen (Not Detect) Urine Fentanyl Screen (Not Detect) Ur Barbiturates Screen (Not Detect) Ur Phencyclidine Scrn (Not Detect) Ur Amphetamines Screen (Not Detect) U Benzodiazepines Scrn (Not Detect) Urine Cocaine Screen (Not Detect) U Marijuana (THC) Screen (Not Detect) Ethyl Alcohol mg/dL COVID-19 ([facility]) Negative (Negative) COVID-19 Clin Com See Note 02/07/22 02/07/22 02/07/22 Range/Units 18:00 18:00 22:34 WBC (4.8-10.8) X10*3/uL RBC (4.20-5.50) X10*6/uL Hgb (12.0-16.0) g/dl Hct (37.0-47.0) % MCV (80.0-98.0) fL MCH (27.0-33.0) pg MCHC (31.0-35.0) g/dl RDW (11.0-16.0) % Plt Count (160-400) X10*3/uL MPV (9.4-12.3) fL Immature Gran % (Auto) (0.0-0.4) % Neut % (Auto) (45-73) % Lymph % (Auto) (20-40) % Morgan % (Auto) (2-11) % Eos % (Auto) (0-4) % Baso % (Auto) (0-2) % Lymph # (Auto) (1.2-4.9) X10*3/uL Morgan # (Auto) (0.1-1.2) X10*3/uL Eos # (Auto) (0.0-0.4) X10*3/uL Baso # (Auto) (0.0-0.2) X10*3/uL Abs Immat Gran (auto) (0.00-0.03) X10*3/uL Absolute Neuts (auto) (2.0-8.3) x10*3/uL Absolute Nucleated RBC (0.0-0.012) X10*3/uL Nucleated RBC % (auto) (0.0-0.2) /100WBC Sodium (135-145) mmol/L Potassium (3.3-5.1) mmol/L Chloride (96-108) mmol/L Carbon Dioxide (22-29) mmol/L Anion Gap (12-20) BUN (9-16) mg/dL Creatinine (0.5-1.4) mg/dL Estim Creat Clear Calc Estimated GFR Random Glucose (60-115) mg/dL Calcium (8.4-10.2) mg/dL Magnesium (1.6-2.6) mg/dL Total Bilirubin (0.0-1.0) mg/dL AST (5-31) U/L ALT (0-31) U/L Alkaline Phosphatase (39-117) U/L Troponin I High Sens < 3.5 (<3.5-17.0) ng/L Total Protein (6.5-8.0) g/dL Albumin (3.5-5.0) g/dL Lipase (8-78) U/L Urine Color Urine Appearance Urine pH (5.0-8.0) Ur Specific Milo (1.005-1.025) Urine Protein (NEG-TRACE) MG/DL Urine Glucose (UA) (NEG) MG/DL Urine Ketones (NEG) MG/DL Urine Blood (NEG) Urine Nitrite (NEG) Ur Leukocyte Esterase (NEG) Urine RBC (0) /HPF Urine WBC (0-4) /HPF Ur Squamous Epith Cells /LPF Urine Bacteria /LPF Urine Opiates Screen POSITIVE H (Not Detect) Urine Fentanyl Screen Not Detected (Not Detect) Ur Barbiturates Screen Not Detected (Not Detect) Ur Phencyclidine Scrn Not Detected (Not Detect) Ur Amphetamines Screen Not Detected (Not Detect) U Benzodiazepines Scrn POSITIVE H (Not Detect) Urine Cocaine Screen Not Detected (Not Detect) U Marijuana (THC) Screen Not Detected (Not Detect) Ethyl Alcohol < 10 mg/dL COVID-19 ([facility]) (Negative) COVID-19 Clin Com 02/07/22 02/07/22 Range/Units 22:34 23:58 WBC (4.8-10.8) X10*3/uL RBC (4.20-5.50) X10*6/uL Hgb (12.0-16.0) g/dl Hct (37.0-47.0) % MCV (80.0-98.0) fL MCH (27.0-33.0) pg MCHC (31.0-35.0) g/dl RDW (11.0-16.0) % Plt Count (160-400) X10*3/uL MPV (9.4-12.3) fL Immature Gran % (Auto) (0.0-0.4) % Neut % (Auto) (45-73) % Lymph % (Auto) (20-40) % Morgan % (Auto) (2-11) % Eos % (Auto) (0-4) % Baso % (Auto) (0-2) % Lymph # (Auto) (1.2-4.9) X10*3/uL Morgan # (Auto) (0.1-1.2) X10*3/uL Eos # (Auto) (0.0-0.4) X10*3/uL Baso # (Auto) (0.0-0.2) X10*3/uL Abs Immat Gran (auto) (0.00-0.03) X10*3/uL Absolute Neuts (auto) (2.0-8.3) x10*3/uL Absolute Nucleated RBC (0.0-0.012) X10*3/uL Nucleated RBC % (auto) (0.0-0.2) /100WBC Sodium (135-145) mmol/L Potassium (3.3-5.1) mmol/L Chloride (96-108) mmol/L Carbon Dioxide (22-29) mmol/L Anion Gap (12-20) BUN (9-16) mg/dL Creatinine (0.5-1.4) mg/dL Estim Creat Clear Calc Estimated GFR Random Glucose (60-115) mg/dL Calcium (8.4-10.2) mg/dL Magnesium 1.7 (1.6-2.6) mg/dL Total Bilirubin (0.0-1.0) mg/dL AST (5-31) U/L ALT (0-31) U/L Alkaline Phosphatase (39-117) U/L Troponin I High Sens (<3.5-17.0) ng/L Total Protein (6.5-8.0) g/dL Albumin (3.5-5.0) g/dL Lipase 37 (8-78) U/L Urine Color YELLOW Urine Appearance CLEAR Urine pH 5.5 (5.0-8.0) Ur Specific Milo 1.010 (1.005-1.025) Urine Protein NEG (NEG-TRACE) MG/DL Urine Glucose (UA) NEG (NEG) MG/DL Urine Ketones NEG (NEG) MG/DL Urine Blood NEG (NEG) Urine Nitrite NEG (NEG) Ur Leukocyte Esterase TRACE H (NEG) Urine RBC 1-4 (0) /HPF Urine WBC 15-29 H (0-4) /HPF Ur Squamous Epith Cells 2+ /LPF Urine Bacteria TRACE /LPF Urine Opiates Screen (Not Detect) Urine Fentanyl Screen (Not Detect) Ur Barbiturates Screen (Not Detect) Ur Phencyclidine Scrn (Not Detect) Ur Amphetamines Screen (Not Detect) U Benzodiazepines Scrn (Not Detect) Urine Cocaine Screen (Not Detect) U Marijuana (THC) Screen (Not Detect) Ethyl Alcohol mg/dL COVID-19 ([facility]) (Negative) COVID-19 Clin Com ECG Data ECG #1: Attestation: I personally reviewed and interpreted this ECG as follows: ECG interpretation date: 02/07/22 ECG interpretation time: 21:26 Prior ECG tracings: available for review Interpretation: Ventricular rate of 89, SD normal, QRS normal, QT / QTC normal. EKG shows normal sinus rhythm, no ST elevations or inversions concerning for acute ischemia. When compared to EKG from September 2021 no significant changes Critical Care Time Critical Care Time Critical Care Time: No Discharge Plan Discharge Clinical Impression: Costochondritis, Chest pain not due to acute coronary syndrome Patient Disposition: Home, Self-Care Instructions: Costochondritis (ED), Chest Wall Pain (ED) Additional Instructions: Take your medications as prescribed. Follow-up with your primary care provider this week. Return to the emergency department with new or worsening symptoms. Such as fevers, chills, chest pain, shortness of breath, nausea, vomiting, dizziness, headache, vision changes, lethargy In case of emergency call 911 Your cardiac enzymes were within normal limits your EKG did not show evidence of heart attack. Your CT scan did not show pneumonia or blood clots in the lungs. Your cardiac workup was negative. this is likely musculoskeletal in nature. You can take ibuprofen every 6 hours, Tylenol every 4 as needed for pain or discomfort. CT/CT angio chest PE protocol IMPRESSION: No evidence for pulmonary emboli. No focal airspace disease. ? No acute intra-abdominal findings. There is diverticulosis but no obvious diverticulitis. ? Degenerative changes in the spine ? VTE: Negative Prescriptions: New lidocaine 5 % adhesive patch,medicated 1 patch topical DAILY PRN (Reason: pain) Qty: 15 0RF Rx Instructions: leave on most painful area for up to 12 hrs No Action hydromorphone 2 mg tablet 2 mg PO Q4-6H PRN (Reason: pain) Qty: 12 0RF Rx Instructions: Patient may request partial refill prednisone 20 mg tablet 60 mg PO DAILY 5 Days Qty: 15 0RF Referrals: Santosh Hay, [Primary Care Provider] - 1 day
[2022-02-07] MEDS: Morphine Sulfate 4 MG/ML CARTRIDGE IVPUSH (18:01)
[2022-02-07 18:08] LABS: MANUAL DIFF FLAG NO
[2022-02-07 18:21] LABS: Ethanol < 10 mg/dL
[2022-02-07 18:24] LABS: COVID-19 Test Negative (Negative); IDNOW Serial# 16C4AD1C
[2022-02-07] MEDS: diazePAM 2 MG TABLET PO (18:24)
[2022-02-07 18:30] LABS: Troponin-I High Sensitivity < 3.5 ng/L (<3.5-17.0)
[2022-02-07 18:31] LABS: Alanine Aminotransferase 11 U/L (0-31); Albumin Level 3.5 g/dL (3.5-5.0); Alkaline Phosphatase 42 U/L (39-117); Anion Gap 10 (12-20); Aspartate Amino Transferase 13 U/L (5-31); Bilirubin Total 0.9 mg/dL (0.0-1.0); Blood Urea Nitrogen 8 mg/dL (9-16); Calcium 8.4 mg/dL (8.4-10.2); Carbon Dioxide 27 mmol/L (22-29); Chloride 103 mmol/L (96-108); Creatinine Clr Calc Pharmacy 73.9; Estimated Glomerular Filt Rate > 60; Glucose Random 179 mg/dL (60-115); Magnesium 1.2 mg/dL (1.6-2.6); Potassium 3.4 mmol/L (3.3-5.1); Sodium 137 mmol/L (135-145); Total Protein 5.7 g/dL (6.5-8.0)
[2022-02-07 18:37] LABS: Basophils Percent Auto 0.5 % (0-2); Eosinophils Absolute Auto 0.1 X10*3/uL (0.0-0.4); Eosinophils Percent Auto 1.8 % (0-4); Hematocrit 31.3 % (37.0-47.0); Imm Gran Abs Auto 0.02 X10*3/uL (0.00-0.03); Imm Gran Pct Auto 0.3 % (0.0-0.4); Lymphocytes Absolute Auto 1.5 X10*3/uL (1.2-4.9); Mean Corpuscular HGB Conc 31.9 g/dl (31.0-35.0); Mean Corpuscular Hemoglobin 28.8 pg (27.0-33.0); Mean Corpuscular Volume 90.2 fL (80.0-98.0); Mean Platelet Volume 10.5 fL (9.4-12.3); Monocytes Absolute Auto 0.7 X10*3/uL (0.1-1.2); Monocytes Percent Auto 11.1 % (2-11); Neutrophils Absolute Auto 3.9 x10*3/uL (2.0-8.3); Neutrophils Percent Auto 62.3 % (45-73); Platelet Count 239 X10*3/uL (160-400); Red Blood Count 3.47 X10*6/uL (4.20-5.50); Red Cell Distribution Width 14.9 % (11.0-16.0); White Blood Count 6.2 X10*3/uL (4.8-10.8)
[2022-02-07] MEDS: iohexoL 350 MG/ML 100 ML INFUS..BTL IV (18:59)
[2022-02-07 19:26] VITALS: BP 124/68; PULSE 96; RESP 18; O2SAT 97
[2022-02-07] MEDS: Magnesium Sulfate/H2O 2 GM/50 ML PIGGYBACK IV (19:29)
--- NOTE | 2022-02-07 19:36 | PC.NURSE ---
Patient A&OX4, resting in bed, reports 10/10 pain was given pain meds at 18:00, states it did not help. VSS. Patient in no acute distress, conversing calmly about family. Patient helped to reposition in bed and given additional pillow for comfort. MD aware.
[2022-02-07 21:42] VITALS: BP 125/80; PULSE 96; RESP 20; O2SAT 98
[2022-02-07 22:41] LABS: Appearance Urine CLEAR; Color Urine YELLOW; Glucose Urine UA NEG (NEG); Leukocyte Esterase Urine TRACE (NEG); Nitrite Urine NEG (NEG); PH 5.5 (5.0-8.0); Urine Blood NEG (NEG); Urine Ketones NEG (NEG); Urine Protein NEG (NEG-TRACE)
[2022-02-07 22:49] VITALS: BP 112/71; PULSE 97; RESP 18; TEMP 36.6; O2SAT 96
[2022-02-07] MEDS: Ketorolac Tromethamine 15 MG/ML VIAL 30 MG IM (22:51)
[2022-02-07] MEDS: Lidocaine 4 % Patch ADH..PATCH 1 PATCH TRANSDERMA (22:51)
[2022-02-07 22:54] LABS: Amphetamine Screen Urine Not Detected (Not Detect); Barbiturates, Urine Not Detected (Not Detect); Benzodiazepines Screen Urine POSITIVE (Not Detect); Cannabinoid Screen Urine Not Detected (Not Detect); Cocaine Screen Urine Not Detected (Not Detect); Fentanyl, urine Not Detected (Not Detect); Opiate Screen Urine POSITIVE (Not Detect); Phencyclidine Screen Urine Not Detected (Not Detect)
[2022-02-07 23:16] LABS: Bacteria Urine TRACE /LPF; Squamous Epithelial Cell Urine 2+ /LPF
--- NOTE | 2022-02-07 23:17 | PC.NURSE ---
Patient speaking calmly on cellphone in room in no acute distress. A s this nurse approaches bedside, patient starts to yell out in pain. Pain meds given per MD order, see MAR. Patient educated about medication. This nurse attempts to go over discharge paperwork, patient refusing discharge stating, I won't leave until this medication takes away all my pain . PA notified.
--- NOTE | 2022-02-08 00:21 | PC.NURSE ---
pt is yelling for pain medication, being disrespectful to provider. attempting to throw herself on the floor.
[2022-02-08 00:23] VITALS: BP 126/82; PULSE 99; RESP 18; TEMP 36.7; O2SAT 96
[2022-02-08 00:24] LABS: Lipase 37 U/L (8-78); Magnesium 1.7 mg/dL (1.6-2.6)
--- NOTE | 2022-02-08 00:24 | PC.NURSE ---
Patient yelling stating, I won't go home until they give me my Dilaudid . This nurse educated patient on pain medications that she was given. Patient then threw herself on the floor with this nurse and associate director of nursing at bedside. This nurse attempted to help patient stand back up but patient refused help. Patient stood up on own and able to move all extremities. Skin c/d/i. VSS. PA and Charge Nurse notified.
== END 2022-02-08 00:55 | disposition home or self-care (01) ==
PROVIDERS: Physician Assistant; Emergency Provider Internal Medicine; PCP Family Medicine
DX: M94.0 Chondrocostal junction syndrome [Tietze] (principal); R07.89 Other chest pain; R10.9 Unspecified abdominal pain; I10 Essential (primary) hypertension; Z20.822 Contact with and (suspected) exposure to COVID-19; Z79.899 Other long term (current) drug therapy
CPT/HCPCS: 36415; 71045; 71275; 74177; 80053; 80307; 81001; 82077; 83690; 83735; 84484; 85025; 87635; 93005; 96365; 96366; 96372; 96375; 99285; J1885; J2270; J3475; Q9967

== ENCOUNTER 2022-05-15 17:24 | Emergency (ER) | payer MEDICARE, SELFPAY ==
--- NOTE | ~2022-05-15 | XR_ITS ---
EXAMINATION: XR HIP, LEFT , AP pelvis CLINICAL INFORMATION: Fall COMPARISON: None available at the time of this dictation. TECHNIQUE: Frontal and lateral views of the hip acquired. , AP pelvis FINDINGS: There is no evidence of acute fracture or dislocation. There are mild degenerative arthritic changes of the hip evident by sclerotic changes of the acetabular roof and narrowing of the joint space. Mild degenerative changes of the symphysis pubis. Mild degenerative changes of the SI joints. Adjacent pubic rami are intact. Surrounding soft tissues are unremarkable. XR/XR hip LT w PEL1V IMPRESSION: Mild degenerative arthritis. Normal radiograph does not entirely exclude the possibility of hip fracture or bone contusions. If there is high clinical suspicion or if patient symptoms persist for longer period, then MRI might be utilized for further investigation.
[2022-05-15 17:42] VITALS: BP 104/76; BP 150/84; PULSE 90; PULSE 95; RESP 18; TEMP 36.7; O2SAT 94; O2SAT 98; BMI 25.4
--- NOTE | 2022-05-15 17:49 | ED_ITS ---
HPI - Fall General Chief Complaint: Fall Stated Complaint: fall Time Seen by Provider: 05/15/22 17:47 Source: RN notes reviewed Mode of arrival: EMS History of Present Illness HPI Narrative: 66-year-old female who is brought in by EMS with complaints that she was trying to open the doors of a cabinet and they unexpectedly opened causing her to fall backwards onto her left side and she is not complaining of significant left- sided chest wall pain as well as some left hip pain. Patient also states that she paddle that she was COVID-19 positive today by her home nurse. Related Data Previous Rx's Medication Instructions Recorded hydromorphone 2 mg tablet 2 mg PO Q4-6H PRN pain #12 tabs 03/21/21 prednisone 20 mg tablet 60 mg PO DAILY 5 days #15 tabs 03/21/21 lidocaine 5 % topical patch 1 patch topical DAILY PRN pain #15 02/07/22 ea Allergies Allergy/AdvReac Type Severity Reaction Status Date / Time No Known Allergies Allergy Mild NOT Verified 03/21/21 09:48 APPLICABLE Review of Systems Review of Systems: Pertinent positives and negatives as stated in HPI 10 point review of systems is otherwise negative. PMFSH Past Medical History Source: nursing notes reviewed Social History Social History Alcohol intake: unknown Patient Tobacco Use Status: Never used Tobacco Advance Directives: No Advance Directives Information Provided: No Physical Exam Vital Signs: Vital Signs: Last Vital Signs Temp 98.0 F 05/15/22 17:42 Pulse 95 05/15/22 17:42 Resp 18 05/15/22 17:42 BP 104/76 05/15/22 17:42 Pulse Ox 94 05/15/22 17:42 O2 Del Method 05/15/22 17:42 BMI result Body Mass Index 25.4 VITAL SIGNS: Reviewed. GENERAL: Well developed, well nourished, in moderate distress. HEAD: Normocephalic/atraumatic EYES: PERRLA, EOMI EARS: Ext canals without abnormality OROPHARYNX: no oral lesions noted, posterior pharynx clear LUNGS: Normal breath sounds. No adventitious sounds or accessory muscle use. SpO2<94> CARDIOVASCULAR: Regular rate and rhythm without noted murmurs, no JVD or lower extremity edema. ABDOMEN: Soft, non-tender, non-distended with bowel sounds. PELVIS: Stable, but tenderness to palpation over iliac/gluteal area without evidence of erythema or ecchymosis BACK: No step-offs or midline vertebral tenderness MUSCULOSKELETAL: No tenderness, deformities, or effusions noted on gross inspection. EXTREMITIES: No cyanosis, clubbing or edema. SKIN: Inspection of the skin reveals no rashes NEUROLOGIC: Alert and oriented x 4. Strength and sensation to light touch were grossly intact x 4. Course Course Course Narrative: 66-year-old female with reported fall onto her left hip with subsequent pain, denies any head strike or loss of consciousness. Review of all investigations negative for acute findings when compared to prior. On re-evaluation after receiving medications for the pain patient has mild improvement is otherwise discharged home in stable condition. She also has COVID-19 infection which she is aware of. MDM - Fall Lab Data Result diagrams: 05/15/22 18:46 05/15/22 18:46 Labs: Lab Results 05/15/22 05/15/22 05/15/22 Range/Units 18:46 18:46 18:46 WBC 4.4 L (4.8-10.8) X10*3/uL RBC 3.98 L (4.20-5.50) X10*6/uL Hgb 11.4 L (12.0-16.0) g/dl Hct 36.0 L (37.0-47.0) % MCV 90.5 (80.0-98.0) fL MCH 28.6 (27.0-33.0) pg MCHC 31.7 (31.0-35.0) g/dl RDW 14.7 (11.0-16.0) % Plt Count 334 D (160-400) X10*3/uL MPV 9.1 L (9.4-12.3) fL Immature Gran % (Auto) 1.1 H (0.0-0.4) % Neut % (Auto) 67.9 (45-73) % Lymph % (Auto) 19.5 L (20-40) % [place] % (Auto) 10.8 (2-11) % Eos % (Auto) 0.5 (0-4) % Baso % (Auto) 0.2 (0-2) % Lymph # (Auto) 0.9 L (1.2-4.9) X10*3/uL [place] # (Auto) 0.5 (0.1-1.2) X10*3/uL Eos # (Auto) 0.0 (0.0-0.4) X10*3/uL Baso # (Auto) 0.0 (0.0-0.2) X10*3/uL Abs Immat Gran (auto) 0.05 H (0.00-0.03) X10*3/uL Absolute Neuts (auto) 3.0 (2.0-8.3) x10*3/uL Absolute Nucleated RBC 0.000 (0.0-0.012) X10*3/uL Nucleated RBC % (auto) 0.0 (0.0-0.2) /100WBC Sodium 142 (135-145) mmol/L Potassium 4.7 D (3.3-5.1) mmol/L Chloride 101 (96-108) mmol/L Carbon Dioxide 29 (22-29) mmol/L Anion Gap 17 (12-20) BUN 12 (9-16) mg/dL Creatinine 0.79 (0.5-1.4) mg/dL Estim Creat Clear Calc 65.0 Estimated GFR > 60 Random Glucose 171 H (60-115) mg/dL Calcium 8.5 (8.4-10.2) mg/dL Total Bilirubin 0.6 (0.0-1.0) mg/dL AST 27 D (5-31) U/L ALT 21 (0-31) U/L Alkaline Phosphatase 64 D (39-117) U/L Total Protein 6.4 L (6.5-8.0) g/dL Albumin 3.8 (3.5-5.0) g/dL COVID-19 ([facility]) Positive A (Negative) COVID-19 Clin Com See Note Discharge Plan Discharge Clinical Impression: Fall, Lab test positive for detection of COVID-19 virus Patient Disposition: Home, Self-Care Instructions: COVID-19 (Coronavirus Disease 2019) (ED), Fall Prevention (ED) Additional Instructions: 1. Resume all home medications as prescribed. 2. Recommend [id number] Tylenol/ibuprofen as needed for pain control. In addition, lidocaine patch to the area of maximal tenderness is very effective. 3. Follow-up with your primary care provider by calling the office on Monday morning to set up an appointment for re-evaluation. You have been diagnosed with COVID-19 and must isolate for the next 5 days and thereafter follow all [place] and Federal guidelines for COVID-19. Return to the ER for worsening symptoms. Prescriptions: No Action hydromorphone 2 mg tablet 2 mg PO Q4-6H PRN (Reason: pain) Qty: 12 0RF Rx Instructions: Patient may request partial refill prednisone 20 mg tablet 60 mg PO DAILY 5 Days Qty: 15 0RF lidocaine 5 % adhesive patch,medicated 1 patch topical DAILY PRN (Reason: pain) Qty: 15 0RF Rx Instructions: leave on most painful area for up to 12 hrs Referrals: Santosh Hay DO [Primary Care Provider] -
[2022-05-15 18:51] LABS: MANUAL DIFF FLAG NO
[2022-05-15 18:53] LABS: Basophils Percent Auto 0.2 % (0-2); Eosinophils Percent Auto 0.5 % (0-4); Hemoglobin 11.4 g/dl (12.0-16.0); Imm Gran Abs Auto 0.05 X10*3/uL (0.00-0.03); Imm Gran Pct Auto 1.1 % (0.0-0.4); Lymphocytes Absolute Auto 0.9 X10*3/uL (1.2-4.9); Lymphocytes Percent Auto 19.5 % (20-40); Mean Corpuscular HGB Conc 31.7 g/dl (31.0-35.0); Mean Corpuscular Hemoglobin 28.6 pg (27.0-33.0); Mean Corpuscular Volume 90.5 fL (80.0-98.0); Mean Platelet Volume 9.1 fL (9.4-12.3); Monocytes Absolute Auto 0.5 X10*3/uL (0.1-1.2); Monocytes Percent Auto 10.8 % (2-11); Neutrophils Percent Auto 67.9 % (45-73); Platelet Count 334 X10*3/uL (160-400); Red Blood Count 3.98 X10*6/uL (4.20-5.50); Red Cell Distribution Width 14.7 % (11.0-16.0); White Blood Count 4.4 X10*3/uL (4.8-10.8)
[2022-05-15 19:01] LABS: COVID-19 Test Positive (Negative); IDNOW Serial# 16C4AD1C
[2022-05-15 19:12] LABS: Alanine Aminotransferase 21 U/L (0-31); Albumin Level 3.8 g/dL (3.5-5.0); Alkaline Phosphatase 64 U/L (39-117); Anion Gap 17 (12-20); Aspartate Amino Transferase 27 U/L (5-31); Bilirubin Total 0.6 mg/dL (0.0-1.0); Blood Urea Nitrogen 12 mg/dL (9-16); Calcium 8.5 mg/dL (8.4-10.2); Carbon Dioxide 29 mmol/L (22-29); Chloride 101 mmol/L (96-108); Estimated Glomerular Filt Rate > 60; Glucose Random 171 mg/dL (60-115); Potassium 4.7 mmol/L (3.3-5.1); Sodium 142 mmol/L (135-145); Total Protein 6.4 g/dL (6.5-8.0)
[2022-05-15] MEDS: Acetaminophen 325 MG TABLET 975 MG PO (19:18)
[2022-05-15] MEDS: Ketorolac Tromethamine 15 MG/ML VIAL IM (19:18)
[2022-05-15] MEDS: Lidocaine 4 % Patch ADH..PATCH 1 PATCH TRANSDERMA (19:18)
== END 2022-05-15 20:08 | disposition home or self-care (01) ==
PROVIDERS: Emergency Provider Student in an Organized Health Care Education/Training Program; PCP Family Medicine
DX: U07.1 COVID-19 (principal); M25.552 Pain in left hip; Z91.81 History of falling
CPT/HCPCS: 73502; 80053; 85025; 87635; 96372; 99284; J1885

== ENCOUNTER 2023-11-25 07:12 | Emergency (ER) | payer MEDICARE, SELFPAY ==
[2023-11-25 07:26] VITALS: BP 137/74; BP 154/69; PULSE 89; PULSE 95; RESP 18; TEMP 36.4; O2SAT 93; O2SAT 99; BMI 27.1
--- NOTE | 2023-11-25 07:26 | ED.SOB ---
HPI - SOB/Dyspnea General Stated Complaint: SOB ON NEB Time Seen by Provider: 11/25/23 07:17 Source: patient Mode of arrival: EMS Limitations: no limitations Related Data Previous Rx's Medication Instructions Recorded hydromorphone 2 mg tablet 2 mg PO Q4-6H PRN pain #12 tabs 03/21/21 prednisone 20 mg tablet 60 mg (3 x 20 mg) PO DAILY 5 days 03/21/21 #15 tabs lidocaine 5 % topical patch 1 patch topical DAILY PRN pain #15 02/07/22 ea Allergies Allergy/AdvReac Type Severity Reaction Status Date / Time No Known Allergies Allergy Mild NOT Verified 03/21/21 09:48 APPLICABLE [facility] Past Medical History Medical History (Updated 11/25/23 @ 07:29 by Rajendra Melo MD) Right rib fracture Hypertension Diabetes mellitus Social History Social History Alcohol intake: unknown Patient Tobacco Use Status: Never used Tobacco Discharge Plan Discharge Prescriptions: No Action hydromorphone 2 mg tablet 2 mg PO Q4-6H PRN (Reason: pain) Qty: 12 0RF Rx Instructions: Patient may request partial refill prednisone 20 mg tablet 60 mg PO DAILY 5 Days Qty: 15 0RF lidocaine 5 % adhesive patch,medicated 1 patch topical DAILY PRN (Reason: pain) Qty: 15 0RF Rx Instructions: leave on most painful area for up to 12 hrs
[2023-11-25 07:31] LABS: Glucose, Whole Blood 530 mg/dL (60-115)
--- NOTE | 2023-11-25 07:36 | ED.PSYCH ---
HPI - Psych General Chief Complaint: ETOH/Substance Use Stated Complaint: SOB ON NEB Time Seen by Provider: 11/25/23 07:17 Source: patient Mode of arrival: EMS Limitations: no limitations History of Present Illness HPI Narrative: Patient diabetic noncompliant not taking her insulin on time alcoholic with depression brought by EMS as patient has been more depressed does not want to live anymore had few drinks earlier today on arrival POC was 531 patient says that her father about 49 years ago and is causing her increased stress does not care about her medications feels suicidal without any plan Related Data Previous Rx's Medication Instructions Recorded hydromorphone 2 mg tablet 2 mg PO Q4-6H PRN pain #12 tabs 03/21/21 prednisone 20 mg tablet 60 mg (3 x 20 mg) PO DAILY 5 days 03/21/21 #15 tabs lidocaine 5 % topical patch 1 patch topical DAILY PRN pain #15 02/07/22 ea Allergies Allergy/AdvReac Type Severity Reaction Status Date / Time No Known Allergies Allergy Mild NOT Verified 03/21/21 09:48 APPLICABLE Review of Systems Review of Systems: Yes all other systems are reviewed and are negative [facility] Past Medical History Medical History Right rib fracture Hypertension Diabetes mellitus Social History Social History Alcohol intake: current Alcohol intake frequency: does not drink Patient Tobacco Use Status: Never used Tobacco Use of substances other than those prescribed or required for medical reasons: No Advance Directives: No Advance Directives Information Provided: No Physical Exam Vital Signs: Vital Signs: Last Vital Signs Temp 97.5 F 11/25/23 07:26 Pulse 100 11/25/23 12:12 Resp 18 11/25/23 12:12 BP 145/77 H 11/25/23 12:12 Pulse Ox 96 11/25/23 12:12 O2 Del Method Room Air 11/25/23 12:12 BMI result Body Mass Index 27.1 Appearance: Alert. Oriented X3. No acute distress. Tearful depressed ETOH+ Eyes: PERRLA, No Nystagmus ENT: Pharynx normal. Oral Mucosa moist Neck: Normal inspection. Neck supple. CVS: Normal heart rate and rhythm. Pulses normal. Respiratory: No respiratory distress. Equal air entry bilateral, no wheezing/rales/rhonchi Abdomen: Soft and nontender. Bowel sounds are present, no mass palpable, no CVA tenderness Skin: Skin warm and dry. Normal skin color. Normal skin turgor. Extremities: No lower extremity edema. No calf tenderness psych: Depressed suicidal without any plan Neuro: Oriented X 3. No motor deficit. No sensory deficit.No cerebellar signs , cranial nerves II-XII intact Medications Administered Discontinued Medications Generic Name Dose Route Start Last Admin Trade Name Freq PRN Reason Stop Dose Admin Sodium Chloride 1,000 mls @ 999 mls/hr 11/25/23 07:37 11/25/23 11:00 Ns IV 11/25/23 08:37 Infused .Q1H1M ONE Infusion Sodium Chloride 1,000 mls @ 999 mls/hr 11/25/23 10:33 11/25/23 11:11 Ns IV 11/25/23 11:33 999 mls/hr .Q1H1M ONE Administration Insulin Glargine 20 unit 11/25/23 07:41 11/25/23 07:50 Insulin Glargine,Hum.Rec.Anlog 100 Unit/Ml 10 Ml Vial SUBCUT 11/25/23 07:42 20 unit ONCE ONE Administration Insulin Human Lispro 14 unit 11/25/23 07:37 11/25/23 08:46 Insulin Lispro 100 Unit/Ml 3 Ml Vial SUBCUT 11/25/23 07:38 14 unit ONCE ONE Administration Insulin Human Lispro 8 unit 11/25/23 10:33 11/25/23 10:40 Insulin Lispro 100 Unit/Ml 3 Ml Vial SUBCUT 11/25/23 10:34 8 unit ONCE ONE Administration Oxycodone HCl 5 mg 11/25/23 13:51 11/25/23 14:03 Oxycodone Hcl Immed Release 5 Mg Tablet PO 11/25/23 13:52 5 mg ONCE ONE Administration Medical Decision Making Medical Decision Making MDM Narrative: Patient with diabetes hyperglycemia depression and suicidal feeling with alcohol use blood sugar improved after IV hydration and insulin will get care team involved for her depression and suicidal feeling 230Pm patient ambulatory vitals are stable repeat blood sugar was 225 patient is sober refusing to talk to care team does not want to stay in the hospital eloped from the ER Differential Diagnosis Differential Diagnoses: The differential diagnosis associated with the presentation includes Alcohol intoxication/depression/SI/hyperglycemia/ketoacidosis Admission/Observation Consideration of admission/observation: Escalation of care including admission/observation considered Lab Data MDM Lab Attestation statement: I reviewed the patient's lab results. 11/25/23 07:57 11/25/23 07:57 Labs: Lab Results 11/25/23 11/25/23 11/25/23 Range/Units 07:26 07:57 10:16 WBC 5.2 (4.8-10.8) X10*3/uL RBC 3.89 L (4.20-5.50) X10*6/uL Hgb 9.4 L (12.0-16.0) g/dl Hct 32.1 L (37.0-47.0) % MCV 82.5 (80.0-98.0) fL MCH 24.2 L (27.0-33.0) pg MCHC 29.3 L (31.0-35.0) g/dl RDW 17.7 H (11.0-16.0) % Plt Count 359 (160-400) X10*3/uL MPV 9.7 (9.4-12.3) fL Immature Gran % (Auto) 0.6 H (0.0-0.4) % Neut % (Auto) 53.3 (45-73) % Lymph % (Auto) 32.4 (20-40) % [place] % (Auto) 11.0 (2-11) % Eos % (Auto) 2.1 (0-4) % Baso % (Auto) 0.6 (0-2) % Lymph # (Auto) 1.7 (1.2-4.9) X10*3/uL [place] # (Auto) 0.6 (0.1-1.2) X10*3/uL Eos # (Auto) 0.1 (0.0-0.4) X10*3/uL Baso # (Auto) 0.0 (0.0-0.2) X10*3/uL Abs Immat Gran (auto) 0.03 (0.00-0.03) X10*3/uL Absolute Neuts (auto) 2.8 (2.0-8.3) x10*3/uL Absolute Nucleated RBC 0.000 (0.0-0.012) X10*3/uL Nucleated RBC % (auto) 0.0 (0.0-0.2) /100WBC Sodium 136 (135-145) mmol/L Potassium 3.6 (3.3-5.1) mmol/L Chloride 104 (96-108) mmol/L Carbon Dioxide 23 (22-29) mmol/L Anion Gap 13 (12-20) BUN 12 (9-16) mg/dL Creatinine 0.86 (0.5-1.4) mg/dL Estim Creat Clear Calc 59.9 Estimated GFR > 60 POC Glucose 530 H* 346 H (60-115) mg/dL Random Glucose 648 H* (60-115) mg/dL Calcium 8.6 (8.4-10.2) mg/dL Magnesium 1.6 (1.6-2.6) mg/dL Total Bilirubin 0.3 (0.0-1.0) mg/dL AST 14 (5-31) U/L ALT 15 (0-31) U/L Alkaline Phosphatase 58 (39-117) U/L Total Protein 6.6 (6.5-8.0) g/dL Albumin 3.7 (3.5-5.0) g/dL Beta-Hydroxybutyrate 0.17 (0.02-0.27) mmol/L Urine Color Yellow Urine Appearance Clear Urine pH 5.5 (5.0-9.0) Ur Specific [place] 1.025 (1.005-1.025) Urine Protein Negative (Neg-Trace) mg/dL Urine Glucose (UA) >=1000 H (Negative) mg/dL Urine Ketones Negative (Negative) mg/dL Urine Blood Negative (Negative) Urine Nitrite Negative (Negative) Ur Leukocyte Esterase Negative (Negative) Urine RBC 0-2 (0-2) /HPF Urine WBC 0-5 (0-5) /HPF Ur Squamous Epith Cells 0-2 (0-2) /HPF Urine Bacteria None Seen (None Seen) Hyaline Casts 0-2 (0-2) /LPF Urine Opiates Screen Not Detected (Not Detect) Urine Fentanyl Screen Not Detected (Not Detect) Ur Barbiturates Screen Not Detected (Not Detect) Ur Phencyclidine Scrn Not Detected (Not Detect) Ur Amphetamines Screen Not Detected (Not Detect) U Benzodiazepines Scrn POSITIVE H (Not Detect) Urine Cocaine Screen Not Detected (Not Detect) U Marijuana (THC) Screen Not Detected (Not Detect) Ethyl Alcohol 181 mg/dL COVID-19 ([facility]) Negative (Negative) COVID-19 Clin Com See Note 11/25/23 Range/Units 11:11 WBC (4.8-10.8) X10*3/uL RBC (4.20-5.50) X10*6/uL Hgb (12.0-16.0) g/dl Hct (37.0-47.0) % MCV (80.0-98.0) fL MCH (27.0-33.0) pg MCHC (31.0-35.0) g/dl RDW (11.0-16.0) % Plt Count (160-400) X10*3/uL MPV (9.4-12.3) fL Immature Gran % (Auto) (0.0-0.4) % Neut % (Auto) (45-73) % Lymph % (Auto) (20-40) % [place] % (Auto) (2-11) % Eos % (Auto) (0-4) % Baso % (Auto) (0-2) % Lymph # (Auto) (1.2-4.9) X10*3/uL [place] # (Auto) (0.1-1.2) X10*3/uL Eos # (Auto) (0.0-0.4) X10*3/uL Baso # (Auto) (0.0-0.2) X10*3/uL Abs Immat Gran (auto) (0.00-0.03) X10*3/uL Absolute Neuts (auto) (2.0-8.3) x10*3/uL Absolute Nucleated RBC (0.0-0.012) X10*3/uL Nucleated RBC % (auto) (0.0-0.2) /100WBC Sodium (135-145) mmol/L Potassium (3.3-5.1) mmol/L Chloride (96-108) mmol/L Carbon Dioxide (22-29) mmol/L Anion Gap (12-20) BUN (9-16) mg/dL Creatinine (0.5-1.4) mg/dL Estim Creat Clear Calc Estimated GFR POC Glucose 225 H (60-115) mg/dL Random Glucose (60-115) mg/dL Calcium (8.4-10.2) mg/dL Magnesium (1.6-2.6) mg/dL Total Bilirubin (0.0-1.0) mg/dL AST (5-31) U/L ALT (0-31) U/L Alkaline Phosphatase (39-117) U/L Total Protein (6.5-8.0) g/dL Albumin (3.5-5.0) g/dL Beta-Hydroxybutyrate (0.02-0.27) mmol/L Urine Color Urine Appearance Urine pH (5.0-9.0) Ur Specific [place] (1.005-1.025) Urine Protein (Neg-Trace) mg/dL Urine Glucose (UA) (Negative) mg/dL Urine Ketones (Negative) mg/dL Urine Blood (Negative) Urine Nitrite (Negative) Ur Leukocyte Esterase (Negative) Urine RBC (0-2) /HPF Urine WBC (0-5) /HPF Ur Squamous Epith Cells (0-2) /HPF Urine Bacteria (None Seen) Hyaline Casts (0-2) /LPF Urine Opiates Screen (Not Detect) Urine Fentanyl Screen (Not Detect) Ur Barbiturates Screen (Not Detect) Ur Phencyclidine Scrn (Not Detect) Ur Amphetamines Screen (Not Detect) U Benzodiazepines Scrn (Not Detect) Urine Cocaine Screen (Not Detect) U Marijuana (THC) Screen (Not Detect) Ethyl Alcohol mg/dL COVID-19 ([facility]) (Negative) COVID-19 Clin Com Critical Care Time Critical Care Time Critical Care Time: Yes Total Critical Care Time: 45 Attestation: The patient was critically ill with a high probability of imminent or life threatening deterioration. I spent greater than ?50??minutes of discontinuous time evaluating the patient,delivering critical care at the bedside, discussing and evaluating pertinent data with consultants. Critical care time does not include time spent performing separately billable procedures or teaching. Total time spent performing critical care was 45???minutes. Discharge Plan Discharge Clinical Impression: Alcohol intoxication, Diabetes mellitus with hyperglycemia Patient Disposition: Left Against Medical Advice Instructions: Abuse of Alcohol (ED), Diabetic Hyperglycemia (ED) Prescriptions: No Action hydromorphone 2 mg tablet 2 mg PO Q4-6H PRN (Reason: pain) Qty: 12 0RF Rx Instructions: Patient may request partial refill prednisone 20 mg tablet 60 mg PO DAILY 5 Days Qty: 15 0RF lidocaine 5 % adhesive patch,medicated 1 patch topical DAILY PRN (Reason: pain) Qty: 15 0RF Rx Instructions: leave on most painful area for up to 12 hrs
[2023-11-25] MEDS: Insulin Glargine,Hum.rec.anlog 100 UNIT/ML 10 ML VIAL 20 UNIT SUBCUT (07:50)
[2023-11-25] MEDS: 0.9 % Sodium Chloride 1,000 ML 999 ML IV ×2 (07:51→11:11)
[2023-11-25 08:01] LABS: MANUAL DIFF FLAG NO
[2023-11-25 08:04] LABS: Appearance Urine Clear; Color Urine Yellow; Glucose Urine UA >=1000 mg/dL (Negative); Leukocyte Esterase Urine Negative (Negative); Nitrite Urine Negative (Negative); PH 5.5 (5.0-9.0); Specific Gravity - Urine 1.025 (1.005-1.025); UMIC TRIGGER UACC YES; Urine Blood Negative (Negative); Urine Ketones Negative (Negative); Urine Protein Negative (Neg-Trace)
[2023-11-25 08:05] LABS: Basophils Percent Auto 0.6 % (0-2); Eosinophils Absolute Auto 0.1 X10*3/uL (0.0-0.4); Eosinophils Percent Auto 2.1 % (0-4); Hematocrit 32.1 % (37.0-47.0); Hemoglobin 9.4 g/dl (12.0-16.0); Imm Gran Abs Auto 0.03 X10*3/uL (0.00-0.03); Imm Gran Pct Auto 0.6 % (0.0-0.4); Lymphocytes Absolute Auto 1.7 X10*3/uL (1.2-4.9); Lymphocytes Percent Auto 32.4 % (20-40); Mean Corpuscular HGB Conc 29.3 g/dl (31.0-35.0); Mean Corpuscular Hemoglobin 24.2 pg (27.0-33.0); Mean Corpuscular Volume 82.5 fL (80.0-98.0); Mean Platelet Volume 9.7 fL (9.4-12.3); Monocytes Absolute Auto 0.6 X10*3/uL (0.1-1.2); Neutrophils Absolute Auto 2.8 x10*3/uL (2.0-8.3); Neutrophils Percent Auto 53.3 % (45-73); Platelet Count 359 X10*3/uL (160-400); Red Blood Count 3.89 X10*6/uL (4.20-5.50); Red Cell Distribution Width 17.7 % (11.0-16.0); White Blood Count 5.2 X10*3/uL (4.8-10.8)
[2023-11-25 08:11] LABS: Amphetamine Screen Urine Not Detected (Not Detect); Barbiturates, Urine Not Detected (Not Detect); Benzodiazepines Screen Urine POSITIVE (Not Detect); Cannabinoid Screen Urine Not Detected (Not Detect); Cocaine Screen Urine Not Detected (Not Detect); Fentanyl, urine Not Detected (Not Detect); Opiate Screen Urine Not Detected (Not Detect); Phencyclidine Screen Urine Not Detected (Not Detect)
[2023-11-25 08:15] LABS: Bacteria Urine None Seen (None Seen); Hyaline Casts Urine 0-2 /LPF (0-2); RBC Urine 0-2 /HPF (0-2); Squamous Epithelial Cell Urine 0-2 /HPF (0-2); WBC Urine 0-5 /HPF (0-5)
[2023-11-25 08:16] LABS: Beta-Hydroxybutyrate 0.17 mmol/L (0.02-0.27)
[2023-11-25 08:17] LABS: COVID-19 Test Negative (Negative); IDNOW Serial# 152EDE1D
[2023-11-25 08:22] LABS: Alanine Aminotransferase 15 U/L (0-31); Albumin Level 3.7 g/dL (3.5-5.0); Alkaline Phosphatase 58 U/L (39-117); Anion Gap 13 (12-20); Aspartate Amino Transferase 14 U/L (5-31); Bilirubin Total 0.3 mg/dL (0.0-1.0); Blood Urea Nitrogen 12 mg/dL (9-16); Calcium 8.6 mg/dL (8.4-10.2); Carbon Dioxide 23 mmol/L (22-29); Chloride 104 mmol/L (96-108); Creatinine Clr Calc Pharmacy 59.9; Estimated Glomerular Filt Rate > 60; Ethanol 181 mg/dL; Glucose Random 648 mg/dL (60-115); Magnesium 1.6 mg/dL (1.6-2.6); Potassium 3.6 mmol/L (3.3-5.1); Sodium 136 mmol/L (135-145); Total Protein 6.6 g/dL (6.5-8.0)
[2023-11-25] MEDS: Insulin Lispro 100 UNIT/ML 3 ML VIAL 14 UNIT SUBCUT (08:46)
[2023-11-25 10:20] LABS: Glucose, Whole Blood 346 mg/dL (60-115)
[2023-11-25] MEDS: Insulin Lispro 100 UNIT/ML 3 ML VIAL 8 UNIT SUBCUT (10:40)
[2023-11-25 11:14] LABS: Glucose, Whole Blood 225 mg/dL (60-115)
[2023-11-25 12:12] VITALS: BP 145/77; PULSE 100; RESP 18; O2SAT 96
[2023-11-25] MEDS: oxyCODONE HCl Immed Release 5 MG TABLET PO (14:03)
--- NOTE | 2023-11-25 15:01 | PC.NURSE ---
patient appears to have walked out before given discharge paperwork, provider aware, supercharge repair supervisor aware
== END 2023-11-25 15:15 | disposition left against medical advice (07) ==
PROVIDERS: Emergency Provider Internal Medicine
DX: F10.220 Alcohol dependence with intoxication, uncomplicated (principal); Y90.6 Blood alcohol level of 120-199 mg/100 ml; F32.A Depression, unspecified; E11.65 Type 2 diabetes mellitus with hyperglycemia; R45.851 Suicidal ideations; Z11.52 Encounter for screening for COVID-19; Z79.899 Other long term (current) drug therapy
CPT/HCPCS: 36415; 80053; 80307; 81001; 81003; 82010; 82947; 83735; 85025; 87635; 96360; 96361; 99284

== ENCOUNTER 2025-07-27 12:43 | Emergency (ER) | payer MEDICARE, SELFPAY ==
--- OUTSIDE RECORDS SUMMARY | 2025-07-23 05:53 | XMS_ITS | Continuity of Care Document ---
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 Name Role Phone Jorden MARTI, Aqib Unavailable Unavailable Allergies, Adverse Reactions, Alerts Substance Reaction Status Criticality No Known Allergies Active No Inform ation No Known Allergies Active No Inform ation Medications Medication Instructions Dosage Effective Dates (start - stop) Status Comments buspirone 10 mg tablet TAKE 1 TABLET BY ORAL ROUTE 2 TIMES EVERY DAY 10 MG - Active oxycodone-acetamin ophen 5 mg-325 mg tablet TAKE 1 TABLET BY ORAL ROUTE EVERY 8 HOURS NEEDED - Active OxyContin 30 mg tablet,crush resistant,extended release TAKE 1 TABLET BY ORAL ROUTE EVERY 12 HOURS - Active DIAZEPAM 5 MG TABLET TAKE 1 TABLET BY MOUTH AT BEDTIME - Active MYRBETRIQ 50 MG TABLET TAKE 1 TABLET BY MOUTH EVERY DAY WITH WATER, DO NOT CRUSH, CHEW OR DIVIDE - Active atorvastatin 40 mg tablet TAKE 1 TABLET BY MOUTH EVERY DAY AT BEDTIME. STOP SIMVASTATIN - Active Effexor XR 150 mg capsule,extended release TAKE ONE CAPSULE BY MOUTH EVERY DAY - Active Lantus U-100 Insulin 100 unit/mL subcutaneous solution INJECT 30 UNITS BY SUBCUTANEOUS ROUTE IN THE MORNING - Active notify provider if BG is greater then 450 or less than 70 Prevnar 20 (PF) 0.5 mL intramuscular syringe inject 0.5 milliliter by intramuscular route once 0.50 milliliter - Active *METFORMIN 1000MG TAKE 1 TABLET BY MOUTH 2 TIMES EVERY DAY WITH MORNING AND EVENING MEALS - Active venlafaxine ER 75 mg capsule,extended release 24 hr TAKE ONE CAPSULE BY MOUTH EVERY DAY WITH FOOD - Active ibuprofen 600 mg tablet take 1 tablet by oral route 3 times every day with food 600 MG - Active Tylenol 8 Hour 650 mg tablet,extended release take 2 tablet by oral route every 8 hours as needed swallowing whole with water. Do not break, crush, dissolve and/or chew. 1300 MG - Active Miralax 17 gram/dose oral powder Mix 17g in liquid and take once a day as needed - Active VITAMIN D3 1000UNIT TAKE 1 CAPSULE BY MOUTH EVERY DAY - Active ProAir RespiClick 90 mcg/actuation breath activated inhale 2 puff by inhalation route every 4 - 6 hours as needed 180 MCG - Active ferrous sulfate 325 mg (65 mg iron) tablet take 1 tablet by oral route every day 1 tablet - Active naloxone 4 mg/actuation nasal spray spray 0.1 milliliter by intranasal route in 1 nostril may repeat dose every 2-3 minutes as needed alternating nostrils with each dose 4 MG - Active on chronic narcotics - emergency medication insulin syringe U-100 with needle 1 mL 30 gauge x 5/16 for use with insulin administration per provider orders - Active Advance Directives Directive Yes / No Effective Date File Name No Information Encounters Encounter Description Practice Location Reason(s) For Visit Diagnoses Date Provider [facility], [address] [employer], [place], [place], [id number], [place] tel:[phone] [place] No Information Jorden Aqib. [address], [place], [place], [id number], [place]. tel:[phone] [facility], [address], [place], [place], [id number], tel:[phone] [place] No Information Sep-2 5-202 5 Jorden Aqib. [address] [place], [place], [id number], [place]. tel:[phone] [facility] [address] [place] [address], [id number], [place] tel:[phone] [place] No Information Sep-0 5 Jorden Aqib. [address] [place], [place], [id number], [place]. tel:[phone] [facility], [facility] [address] [place] [address], [id number], [place] tel:[phone] [place] No Information Sep-0 5 Jorden Aqib. [address] [place], [place], [id number], [place]. tel:[phone] [facility], [address], [id number], [place] tel:[phone] [place] No Information 5 Jorden Aqib. [address] [place], [place], [id number], [place]. tel:[phone] [facility], [address], [id number], [place] tel:[phone] [place] Encounter for nutritional assessmentDiabeti c nutritional counseling completedExcessiv e carbohydrate intake 5 Normile . [address] [place], [place], [id number], [place]. tel:[phone] [facility] [address] [place] [address], [id number], [place] tel:[phone] [place] Semi-Annual (chief complaint) Encounter for general adult medical examination without abnormal findingsSpinal stenosis, lumbar region without neurogenic claudicationGener alized anxiety disorderMajor depressive disorder, recurrent, moderateCocaine abuse, in remissionOpioid use, unspecified, uncomplicatedAthe rosclerotic heart disease of north[place] coronary artery without angina pectorisAtheroscl erosis of aortaMixed hyperlipidemiaTyp e 2 diabetes mellitus with diabetic cataractType 2 diabetes mellitus with diabetic polyneuropathyTyp e 2 diabetes mellitus with hyperglycemiaType 2 diabetes mellitus with diabetic chronic kidney diseaseChronic kidney disease, stage 2 (mild)Type 2 diabetes mellitus with diabetic peripheral angiopathy without gangreneLong term (current) use of insulinSacroiliit is, not elsewhere classifiedChronic obstructive pulmonary disease, unspecifiedOther nonspecific abnormal finding of lung fieldNicotine dependence, cigarettes, uncomplicated 5 Jorden Aqib. [address] [facility] [place], [id number], [place]. tel:[phone] [facility], [address], [place], [place], [id number], [place] tel:[phone] [place] Acute Visit (chief complaint) CostochondritisTy pe 2 diabetes mellitus with hyperglycemia, with long-term current use of insulinLong term (current) use of insulin 5 Jorden Aqib. [address] [facility] [address], [place], [place], [id number], [place]. tel:[phone] [facility], [address] [facility], [place], [place], [id number], [place] tel:[phone] [place] No Information 5 Jorden Aqib. [address], [place], [place], [id number], [place]. tel:[phone] [facility], [address], [place], [place], [id number], [place] tel:[phone] [place] Other chronic pain 5 Theroux Breana. [address] [place], [address]. tel:[phone] [facility], [address], [place], [place], [id number], [place] tel:[phone] [place] Other chronic pain 5 Theroux Breana. [address] [facility], [place], [address]. tel:[phone] [facility], [address], [place], [place], [id number], [place] tel:[phone] [place] Other chronic pain Tony-0 1-202 5 Theroux Breana. [address], [place], [address]. tel:[phone] [facility], [address], [place], [place], [id number], [place] tel:[phone] [place] Other chronic pain Jaya-2 0-202 5 Theroux Breana. [address], [place], [address]. tel:[phone] [facility], [address], [place], [place], [id number], [place] tel:[phone] [place] Other chronic pain Jaya-1 6-202 5 Theroux Breana. [address], [place], [address]. tel:[phone] [facility], [address], [place], [place], [id number], [place] tel:[phone] [place] Other chronic pain Jaya-0 9-202 5 Theroux Breana. [address], [place], [address]. tel:[phone] [facility], [address], [place], [place], [id number], [place] tel:[phone] [place] No Information Jaya-0 4-202 5 Jorden Aqib. [address] [place], [id number], [place]. tel:[phone] [facility], [address], [place], [place], [id number], [place] tel:[phone] [place] Other chronic pain Jaya-0 2-202 5 Theroux Breana. [address], [place], [address]. tel:[phone] [facility], [address], [place], [place], [id number], [place] tel:[phone] [place] Muscle weakness (generalized) 5 Theroux Breana. [address] [place], [address]. tel:[phone] [facility], [address], [place], [place], [id number], [place] tel:[phone] [place] Encounter for rehabilitation evaluation 5 Theroux Breana. [address], [place], [address]. tel:[phone] [facility], [address] [facility], [place], [place], [id number], [place] tel:[phone] [place] Acute Visit (chief complaint) Arthritis of carpometacarpal (CMC) joint of right thumb 5 Jorden Aqib. [address] [place], [place], [id number], [place]. tel:[phone] [facility], [address], [place], [place], [id number], [place] tel:[phone] [place] Unilateral primary osteoarthritis of first carpometacarpal joint, right hand 5 Jorden Aqib. [address] [place], [id number], [place]. tel:[phone] [facility], [address], [place], [place], [id number], [place] tel:[phone] [place] Acute Visit (chief complaint) Costochondritis 5 Jorden Aqib. [address] [place], [place], [id number], [place]. tel:[phone] [facility], [address], [place], [place], [id number], [place] tel:[phone] [place] No Information 5 Jorden Aqib. [address] [place], [id number], [place]. tel:[phone] [facility], [address] [facility], [place], [place], [id number], [place] tel:[phone] [place] Pain in unspecified handUnilateral primary osteoarthritis of first carpometacarpal joint, right hand 5 Jorden Aqib. [address] [facility] [place], [id number], [place]. tel:[phone] [facility], [address] [facility], [place], [place], [id number], [place] tel:[phone] [place] Encounter for rehabilitation evaluation 5 Jorden Aqib. [address] [facility] [place], [id number], [place]. tel:[phone] [facility], [facility], [place], [place], [id number], [place] tel:[phone] [place] Encounter for nutritional assessmentDiabeti c nutritional counseling completedExcessiv e carbohydrate intake 5 Normile . [address] [place], [place], [id number], [place]. tel:[phone] [facility], [facility], [place], [place], [id number], [place] tel:[phone] [place] Encounter for rehabilitation evaluation 5 Theroux Breana. [address] [place], [address]. tel:[phone] [facility], [facility], [place], [place], [id number], [place] tel:[phone] [place] Encounter for rehabilitation evaluation 5 Manjit Armida. [address] [facility] [place], [id number], [place]. tel:[phone] [facility], [facility], [place], [place], [id number], tel:[phone] [place] Semi-Annual (chief complaint) Encounter for general adult medical examination without abnormal findingsSpinal stenosis of lumbar region, unspecified whether neurogenic claudication presentGeneralize d anxiety disorderMajor depressive disorder, recurrent, moderateCocaine abuse in remissionChronic, continuous use of opioidsCoronary artery calcificationAort ic atherosclerosisMi xed hyperlipidemiaTyp e 2 diabetes mellitus with diabetic cataract, unspecified whether machine long goods helper insulin useType 2 diabetes mellitus with diabetic polyneuropathy, unspecified whether custodial insulin useType 2 diabetes mellitus with hyperglycemia, unspecified whether custodial insulin useType 2 diabetes mellitus with diabetic chronic kidney disease, unspecified CKD stage, unspecified whether machine long goods helper insulin useChronic renal disease, stage IIDiabetic peripheral vascular diseaseLong term current use of insulinSacroiliit isChronic obstructive pulmonary disease, unspecified COPD typeMultiple lung nodulesCigarette nicotine dependence without complication 5 Jorden Aqib. [address] [place], [id number], [place]. tel:[phone] [facility], [address] [address], [place], [place], [id number], tel:[phone] [place] No Information 5 Jorden Aqib. [address] [place], [place], [id number], [place]. tel:[phone] [facility], [address] [address], [place], [place], [address], [place] tel:[phone] [place] Unspecified hearing loss, unspecified ear 5 Jorden Aqib. [address] [place], [id number], [place]. tel:[phone] [facility], [address] [address], [place], [place], [id number], [place] tel:[phone] [place] Follow-up (chief complaint) SacroiliitisChron ic, continuous use of opioids 4 Jorden Aqib. [address] [place], [place], [id number], [place]. tel:[phone] [facility], [address], [place], [place], [id number], [place] tel:[phone] [place] Presence of dental prosthetic device (complete) (partial)Encounte r for dental examination and cleaning without abnormal findings 4 Jorden Aqib. [address] [place], [place], [address], [place]. tel:[phone] [facility], [address] [facility] [address], [place], [place], [id number], [place] tel:[phone] [place] No Information 4 Jorden Aqib. [address] [place], [place], [address], [place]. tel:[phone] [facility], [address], [place], [place], [id number], [place] tel:[phone] [place] Acute Visit (chief complaint)Acute Visit (chief complaint) Hot flashesMajor depressive disorder, recurrent, moderate Jul- 4 Jorden Aqib. [address] [place], [place], [id number], [place]. tel:[phone] [facility], [address], [place], [place], [id number], [place] tel:[phone] [place] Acute Visit (chief complaint) Major depressive disorder, recurrent, moderateType 2 diabetes mellitus with diabetic polyneuropathy, with long-term current use of insulinLong term (current) use of insulinRight wrist painType 2 diabetes mellitus with hyperglycemia, with long-term current use of insulin 4 Jorden Aqib. [address] [place], [place], [address], [place]. tel:[phone] [facility], [address], [place], [place], [id number], [place] tel:[phone] [place] Follow-up (chief complaint) Medication course changed Jun- 4 Jorden Aqib. [address] [place], [place], [address], [place]. tel:[phone] [facility], [facility], [place], [place], [id number], [place] tel:[phone] [place] Semi-Annual (chief complaint) Generalized anxiety disorderMajor depressive disorder, recurrent, moderateCocaine abuse in remissionVictim of elder abuseHistory of sexual abuse in childhoodMitral annular calcificationCoro nary artery calcificationAort ic atherosclerosisHy perlipidemia, unspecified hyperlipidemia typeType 2 diabetes mellitus with diabetic cataract, with long-term current use of insulinLong term (current) use of insulinType 2 diabetes mellitus with diabetic polyneuropathy, with long-term current use of insulinType 2 diabetes mellitus with stage 2 chronic kidney disease, with long-term current use of insulinChronic kidney disease, stage 2 (mild)Diabetic peripheral vascular diseaseAbsence of teeth, acquiredPrimary generalized (osteo)arthritisA drenal cortical adenoma of left adrenal glandFibromyalgia syndromeChronic obstructive pulmonary disease, unspecified COPD typeModerate obstructive sleep apneaMultiple lung nodulesCigarette nicotine dependence without complication Jun-0 4 Angie Gray. [address] [place], [place], [id number], [place]. tel:[phone] [facility], [address] [address], [place], [place], [address], [place] tel:[phone] [place] Semi-Annual (chief complaint) No Information 0 4 Angie Gray. [address] [place], [place], [address], [place]. tel:[phone] [facility], [address] [address], [place], [place], [id number], [place] tel:[phone] [place] No Information 4 Os Linda. [address] [place], [place], [address], [place]. tel:[phone] [facility], [address] [facility] [address], [place], [place], [id number], [place] tel:[phone] [place] Encounter for nutritional assessment 4 Charlesmarcelino Gonzalez. [address] [place], [place], [id number], [place]. tel:[phone] [facility], [address] [facility], [place], [place], [address], [place] tel:[phone] [place] Follow-up (chief complaint) Chronic cough 4 Angie Palafoxca. [address] [place], [place], [id number], [place]. tel:[phone] [facility], [address] [facility], [place], [place], [id number], [place] tel:[phone] [place] Sick Visit (chief complaint)Acute Visit (chief complaint) Chronic obstructive pulmonary disease, unspecified COPD typeAcute cough 4 Angie Marina. [address] [place], [place], [address], [place]. tel:[phone] [facility], [address] [facility], [place], [place], [id number], [place] tel:[phone] [place] No Information 4 Os Linda. [address] [place], [place], [address], [place]. tel:[phone] [facility], [address] [facility] [address] [facility], [place], [place], [id number], [place] tel:[phone] [place] Complete loss of teeth, unspecified cause, unspecified class 4 Os Linda. [address] [place], [place], [id number], [place]. tel:[phone] [facility], [facility], [place], [place], [address], [place] tel:[phone] [place] Pain in right wrist 4 Os Linda. [address], [place], [place], [address], [place]. tel:[phone] [facility], [address], [place], [place], [id number], [place] tel:[phone] [place] Acute Visit (chief complaint) Right wrist painArthritis of carpometacarpal (CMC) joint of left thumb 4 Os Linda. [address], [place], [place], [address], [place]. tel:[phone] [facility], [address], [place], [place], [id number], [place] tel:[phone] [place] Acute Visit (chief complaint) Cigarette nicotine dependence without complicationCosto chondritisSore throat 4 Os Linda. [address] [place], [place], [address], [place]. tel:[phone] [facility], [address] [facility], [place], [place], [id number], [place] tel:[phone] [place] Encounter for nutritional assessment 4 Normile . [address], [place], [place], [id number], [place]. tel:[phone] [facility], [address] [facility], [place], [place], [id number], [place] tel:[phone] [place] Encounter for rehabilitation evaluation 4 Jona Ma. [address], [place], [place], [id number], [place]. tel:[phone] [facility], [address] [facility] [address], [place], [place], [id number], [place] tel:[phone] [place] Encounter for rehabilitation evaluationAlterat ion in performance of activities of daily livingOther chronic pain 4 Randy Quinteros. 101 [facility] [address] [place], [place], [id number]. tel:[phone] [facility], [address], [place], [place], [address], [place] tel:[phone] [place] Semi-Annual (chief complaint) Generalized anxiety disorderMajor depressive disorder, recurrent, moderateCocaine abuse in remissionMitral annular calcificationCoro nary artery calcificationCoro nary atherosclerosis due to calcified coronary lesionAortic atherosclerosisHy perlipidemia, unspecified hyperlipidemia typeType 2 diabetes mellitus with diabetic cataract, unspecified whether machine long goods helper insulin useType 2 diabetes mellitus with diabetic polyneuropathy, unspecified whether custodial insulin useAbsence of teeth, acquiredStress incontinence of urineAdrenal cortical adenoma of left adrenal glandChronic obstructive pulmonary disease, unspecified COPD typePrimary generalized (osteo)arthritisO ther chronic painMultiple lung nodulesModerate obstructive sleep apneaCigarette nicotine dependence without complicationType 2 diabetes mellitus with diabetic chronic kidney disease, unspecified CKD stage, unspecified whether custodial insulin useChronic renal disease, stage IIType 2 diabetes mellitus with peripheral vascular disease 4 Os Linda. [address] [facility] [place], [address], [place]. tel:[phone] [facility], [address] [facility], [place], [place], [id number], [place] tel:[phone] [place] Encounter for dental examination and cleaning without abnormal findings 3 Angie Gray. [address] [facility] [place], [address], [place]. tel:[phone] [facility], [address], [place], [place], [id number], [place] tel:[phone] [place] Other chronic pain 3 Efrem Pastrana. [address] [facility] [address], [place], [address]. tel:[phone] [facility], [address], [place], [place], [id number], [place] tel:[phone] [place] Chronic pain syndrome 3 Angie Gray. [address] [place], [place], [id number], [place]. tel:[phone] [facility], [address] [facility] [address] [facility], [place], [place], [id number], [place] tel:[phone] [place] No Information 3 Angie Gray. [address] [place], [place], [id number], [place]. tel:[phone] [facility], [address], [place], [place], [id number], [place] tel:[phone] [place] Acute Visit (chief complaint) Chronic pain syndromeLumbar back pain 3 Jeanie Rodriguez. [address] [place], [address], [place]. tel:[phone] [facility], [address], [place], [place], [address], [place] tel:[phone] [place] Complete loss of teeth, unspecified cause, unspecified classEncounter for examination of eyes and vision without abnormal findingsEncounter for screening for malignant neoplasm of colon 3 Sim Sheth. [address] [place] [address], [id number], [place]. tel:[phone] [facility], [address] [place] [address], [id number], [place] tel:[phone] [place] Semi-Annual (chief complaint) Generalized anxiety disorderMajor depressive disorder, recurrent, moderateCocaine abuse in remissionCoronary artery calcificationCoro nary atherosclerosis due to calcified coronary lesionHyperlipide arabella, unspecified hyperlipidemia typeAortic atherosclerosisTy pe 2 diabetes mellitus with diabetic cataract, with long-term current use of insulinLong term (current) use of insulinChronic kidney disease due to diabetes mellitusType 2 diabetes mellitus with diabetic polyneuropathy, with long-term current use of insulinChronic renal disease, stage IIOther chronic painChronic obstructive pulmonary disease, unspecified COPD type 3 Angie Changecca. [address] [place], [place], [id number], [place]. tel:[phone] [facility], [address] [facility] [address], [place], [place], [id number], [place] tel:[phone] [place] Encounter for nutritional assessment 3 Normile . [address] [place], [place], [id number], [place]. tel:[phone] [facility], [address], [place], [place], [address], [place] tel:[phone] [place] Left hip pain 3 Sim Sheth. [address] [place], [place], [id number], [place]. tel:[phone] [facility], [address] [facility], [place], [place], [id number], [place] tel:[phone] [place] Primary generalized (osteo)arthritis 3 Perfecto Martinez. [address] [place], [place], [address], [place]. tel:[phone] [facility], [address], [place], [place], [address], [place] tel:[phone] [place] Sacroiliac joint pain 3 Cysz Emely. [address] [place], [place], [id number], [place]. tel:[phone] [facility], [address], [place], [place], [id number], [place] tel:[phone] [place] Absence of teeth, acquired 3 Os Linda. [address] [place], [place], [address], [place]. tel:[phone] [facility], [address], [place], [place], [id number], [place] tel:[phone] [place] Encounter for rehabilitation evaluation 3 Efrem Victoriano. [address], [place], [address]. tel:[phone] [facility], [address] [facility], [place], [place], [id number], [place] tel:[phone] [place] Encounter for nutritional assessmentDiabete s education, encounter for 3 Normile . [address] [place], [id number], [place]. tel:[phone] [facility], [address] [facility] [address] [facility], [place], [place], [id number], [place] tel:[phone] [place] Encounter for rehabilitation evaluation 3 Efrem Victoriano. [address], [place], [address]. tel:[phone] [facility], [address] [facility], [place], [id number], [place] tel:[phone] [place] Encounter for rehabilitation evaluation 3 Randy Perez Sridevi Quinteros. [address] [facility] [place], [place], [id number]. tel:[phone] [facility], [address], [place], [place], [id number], [place] tel:[phone] [place] Semi-Annual (chief complaint) Generalized anxiety disorderMajor depressive disorder, recurrent, moderateCocaine abuse in remissionMitral annular calcificationCoro nary artery calcificationCoro nary atherosclerosis due to calcified coronary lesionAortic atherosclerosisHy perlipidemia, unspecified hyperlipidemia typeType 2 diabetes mellitus with diabetic cataract, unspecified whether machine long goods helper insulin useType 2 diabetes mellitus with diabetic chronic kidney disease, unspecified CKD stage, unspecified whether machine long goods helper insulin useLong term current use of insulinChronic renal disease, stage IIChronic interstitial cystitisAdrenal cortical adenoma of left adrenal glandPrimary generalized (osteo)arthritisC hronic obstructive pulmonary disease, unspecified COPD typeMultiple lung nodulesOther chronic painCigarette nicotine dependence without complication 3 Os Linda. [address] [place], [place], [id number], [place]. tel:[phone] [facility], [address], [place], [place], [id number], [place] tel:[phone] [place] Absence of teeth, acquired 3 Os Linda. [address] [place], [place], [id number], [place]. tel:[phone] [facility],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 [place] tel:[phone] [place] Sores of mouth, back pain (chief complaint) Denture irritationSacroil iac joint painMouth soresMottled skinEpigastric abdominal pain Nov- 0 Farevaag Maryam. [address] [place], [place], [id number]. tel:[phone] [facility], [address] [place] [address], [id number], [place] tel:[phone] [place] Mottled skinDenture irritation b-2 0 Sim Domenic. [address], [place], [id number], [place]. tel:[phone] [facility], [address] [place] [address], [id number], [place] tel:[phone] [place] Need for hepatitis B screening testMicrocytic anemia b-1 3 0 Farevaag Maryam. [address] [place], [place], [id number]. tel:[phone] [facility], [address] [facility], [place], [place], [id number], [place] tel:[phone] [place] Radiculopathy, unspecified spinal region b-1 0- 0 Farevaag Maryam. [address] [place], [place], [id number]. tel:[phone] [facility], [address] [facility], [place], [place], [id number], [place] tel:[phone] [place] ThrombocytosisMic rocytic anemiaScreening for colon cancer b-0 0 Sim Domenic. [address], [place], [id number], [place]. tel:[phone] [facility], [facility], [place], [place], [id number], [place] tel:[phone] [place] ANNUAL (chief complaint) Adult general medical examType 2 diabetes mellitus with diabetic cataract, with long-term current use of insulinLong term (current) use of insulinPolydactyl y of right footSyndactyly of toesMajor depressive disorder, recurrent, moderateGeneraliz ed anxiety disorderFamily history of pancreatic cancerPost-trauma tic stress disorder, chronicHistory of sexual abuse in childhoodCocaine abuse, uncomplicatedBran ch retinal artery occlusion, unspecified lateralityOveract karen detrusorThrombocy themiaSpinal stenosis of lumbar region without neurogenic claudicationChron ic pain syndromePain due to interstitial cystitisChronic kidney disease, stage 3 (moderate)Type 2 diabetes mellitus with stage 3 chronic kidney disease, with long-term current use of insulinTobacco abuse, in remissionDysphagi a, unspecified typeMicrocytic anemiaHyperlipide arabella, unspecified hyperlipidemia typeCentrilobular emphysema Fe-0 0 Farevaag Maryam. [address] [place], [place], [id number]. tel:[phone] [facility], [address], [place], [place], [id number], [place] tel:[phone] [place] Multiple issues (chief complaint) Family history of pancreatic cancerPulmonary noduleThrombocyth emiaCocaine abuse, uncomplicatedDiab etes mellitus type [address] for health check 0 Fabrizioevaag Maryam. [address] [place], [place], [id number]. tel:[phone] [facility], [address] [facility], [place], [place], [id number], [place] tel:[phone] [place] Cocaine abuse, uncomplicated 0 Sim Domenic. [address], [place], [id number], [place]. tel:[phone] [facility], [address] [facility], [place], [place], [id number], [place] tel:[phone] [place] Other chronic pain 0 Pugladis Perez Ramya. 101 [facility] [place], [place], [id number]. tel:[phone] [facility], [address], [place], [place], [id number], [place] tel:[phone] [place] Denture sore mouth 0 Sim Domenic. [address] [place], [place], [id number], [place]. tel:[phone] [facility], [address], [place], [place], [id number], [place] tel:[phone] [place] Type 2 diabetes mellitus without complications 0 Sim Domenic. [address] [place], [place], [id number], [place]. tel:[phone] [facility], [address], [place], [place], [id number], [place] tel:[phone] [place] Encounter for general adult medical exam w abnormal findings 0 9 Sim Domenic. [address], [place], [id number], [place]. tel:[phone] [facility], [address], [place], [place], [id number], [place] tel:[phone] [place] Spinal Stenosis- (chief complaint) Bi post-trauma osteoarth of first carpometacarp jointsType 2 diabetes mellitus without complicationsSpin al stenosis, lumbar region with neurogenic claudicationAbnor mal results of thyroid function studiesAnemia 9 Sim Domenic. [address] [place], [place], [id number], [place]. tel:[phone] [facility], [address], [place], [place], [id number], [place] tel:[phone] [place] Bi post-trauma osteoarth of first carpometacarp joints 9 Sim Domenic. [address], [place], [id number], [place]. tel:[phone] [facility], [address], [place], [place], [id number], [place] tel:[phone] [place] Bi post-trauma osteoarth of first carpometacarp joints 3 9 Randy Quinteros. [address] [place], [place], [id number]. tel:[phone] [facility], [address], [place], [place], [id number], [place] tel:[phone] [place] No Information 9 Sim Godwinn. [address] [place], [place], [id number], [place]. tel:[phone] [facility], [address] [place] [address], [id number], [place] tel:[phone] [facility] No Information 9 Saroj Tejada. [address] [place], [address], [place]. tel:[phone] [facility], [facility] [address] [place] [address], [id number], [place] tel:[phone] [place] LBP, impending hand surgery (chief complaint) Spinal stenosis, lumbar region with neurogenic claudicationType 2 diabetes mellitus without complicationsReti nal artery branch occlusion, unspecified eyeOther chronic painPost-traumati c OA of hand Jun- 9 Sim Godwinn. [address] [place], [place], [id number], [place]. tel:[phone] [facility], [facility], [place], [place], [id number], [place] tel:[phone] [place] Diarrhea- (chief complaint) Diarrhea, unspecifiedType 2 diabetes mellitus without complications 9 Sim Godwinn. [address] [place], [place], [id number], [place]. tel:[phone] [facility], [facility] [address] [place] [address], [id number], [place] tel:[phone] [place] Semi Annual (chief complaint)Chroni c Conditions (chief complaint) Volume depletionType 2 diabetes mellitus without complicationsOthe r intervertebral disc degeneration, lumbar regionNicotine dependence, cigarettes, uncomplicatedComp lete loss of teeth, unspecified cause, unspecified classBilateral post-traumatic osteoarthritis of first carpometacarpal jointsUnspecified cataractOther chronic painEmphysema, unspecifiedBenign neoplasm of unspecified adrenal glandObstructive sleep apnea (adult) (pediatric)Stress incontinence (female) (male)Retinal artery branch occlusion, unspecified eyeEssential (primary) hypertensionInter stitial cystitis (chronic) without hematuriaMajor depressionHyperli pidemiaUnspecifie d hearing loss, bilateralEncounte r for general adult medical exam w abnormal findings 9 Sim Domenic. [address] [place], [place], [id number], [place]. tel:[phone] [facility], [address], [place], [place], [id number], [place] tel:[phone] [place] light headedness (chief complaint) Orthostatic hypotensionRetina l artery branch occlusion, unspecified eyeOther specified arthritis, unspecified handType 2 diabetes mellitus without complicationsOthe r chronic pain 9 Sim Domenic. [address] [place] [address], [id number], [place]. tel:[phone] [facility], [address] [facility], [place], [place], [id number], [place] tel:[phone] [place] Type 2 diabetes mellitus without complications 9 Sim Domenic. [address] [place], [place], [id number], [place]. tel:[phone] [facility], [address], [place], [place], [id number], [place] tel:[phone] [place] Orthostatic hypotension 9 Sim Domenic. [address] [place], [place], [id number], [place]. tel:[phone] [facility], [address], [place], [place], [id number], [place] tel:[phone] [place] Type 2 diabetes mellitus without complications 9 Sim Domenic. [address] [place] [address], [id number], [place]. tel:[phone] [facility], [address], [place], [place], [id number], [place] tel:[phone] [place] Type 2 diabetes mellitus without complications 9 Sim Domenic. [address] [place], [place], [id number], [place]. tel:[phone] [facility], [address], [place], [place], [id number], [place] tel:[phone] [place] Discussion re: UE injury (chief complaint) Contusion of left upper arm, sequela 9 Sim Domenic. [address] [place], [place], [id number], [place]. tel:[phone] [facility], [address], [place], [place], [id number], [place] tel:[phone] [place] Essential (primary) hypertension 9 Sim Domenic. [address], [place], [id number], [place]. tel:[phone] [facility], [address] [facility], [place], [place], [id number], [place] tel:[phone] [place] lightheadedness (chief complaint) Orthostatic hypotensionHeadac heRetinal artery branch occlusion, unspecified eyeOther specified disorders of nose 9 Sim Domenic. [address] [place], [place], [id number], [place]. tel:[phone] [facility], [address] [facility], [place], [place], [id number], [place] tel:[phone] [place] Retinal artery branch occlusion, unspecified eye 9 Sim Domenic. [address] [place], [place], [id number], [place]. tel:[phone] [facility], [address], [place], [place], [id number], [place] tel:[phone] [place] Type 2 diabetes mellitus without complications 9 Sim Domenic. [address] [place], [place], [id number], [place]. tel:[phone] [facility], [address], [place], [place], [id number], [place] tel:[phone] [place] Type 2 diabetes mellitus without complications 9 Sim Domenic. [address] [place], [place], [id number], [place]. tel:[phone] [facility], [facility] [address] [address], [place], [place], [id number], [place] tel:[phone] [place] Type 2 diabetes mellitus without complications 9 Efrem Victoriano. [address] [place], [address]. tel:[phone] [facility], [address] [facility] [address], [place], [place], [id number], [place] tel:[phone] [place] Pain in right upper arm 9 Randy Quinteros. 101 [facility], [place], [place], [id number]. tel:[phone] [facility], [address] [facility], [place], [place], [id number], [place] tel:[phone] [place] Type 2 diabetes mellitus without complications 9 Kellie Aparicio. [address] [place], [address]. tel:[phone] [facility], [address], [place], [place], [id number], [place] tel:[phone] [place] shoulder pain (chief complaint)Multip le complaints (chief complaint) Pain in right upper armMajor depressionBilater al post-traumatic osteoarthritis of first carpometacarpal jointsInterstitia l cystitis (chronic) without hematuriaType 2 diabetes mellitus without complications 9 Sim Domenic. [address] [place], [place], [id number], [place]. tel:[phone] [facility], [address], [place], [place], [id number], [place] tel:[phone] [place] f/u multiple issues (chief complaint) Bilateral post-traumatic osteoarthritis of first carpometacarpal jointsMajor depressionInterst itial cystitis (chronic) without hematuriaNicotine dependence, cigarettes, uncomplicatedType 2 diabetes mellitus without complicationsTumo r of uncertain behavior of skin 9 Sim Godwinn. [address] [place], [place], [id number], [place]. tel:[phone] [facility], [address] [facility], [place], [place], [id number], [place] tel:[phone] [place] 2 week follow up (chief complaint) Major depressionBilater al post-traumatic osteoarthritis of first carpometacarpal jointsType 2 diabetes mellitus without complicationsOthe r chronic pain 8 Sim Godwinn. [address] [place], [place], [id number], [place]. tel:[phone] [facility], [facility], [place], [place], [id number], [place] tel:[phone] [place] swollen hands (chief complaint) Major depressionBilater al post-traumatic osteoarthritis of first carpometacarpal joints 8 Simjessica Godwinn. [address] [place], [place], [id number], [place]. tel:[phone] [facility], [address] [facility], [place], [place], [id number], [place] tel:[phone] [place] Interstitial cystitis (chronic) without hematuria 8 Sim Domenic. [address] [place], [place], [id number], [place]. tel:[phone] [facility], [address] [facility], [id number], [place] tel:[phone] [facility] for general adult medical exam w abnormal findings 8 Saroj Tejada. [address] [place], [address], . tel:[phone] [facility], [address] [facility], [place], [place], [id number], [place] tel:[phone] [place] No Information 8 Simjessica Sheth. [address] [place], [place], [id number], [place]. tel:[phone] [facility], [address] [facility], [place], [place], [id number], [place] tel:[phone] [place] Follow Up of BP (chief complaint) Essential (primary) hypertensionType 2 diabetes mellitus without complications 8 Simjessica Godwinn. [address] [place], [place], [id number], [place]. tel:[phone] [facility], [facility], [place], [place], [id number], [place] tel:[phone] [place] Essential (primary) hypertension 8 Simjessica Godwinn. [address] [place] [address], [id number], [place]. tel:[phone] [facility], [address] [facility], [place], [place], [id number], [place] tel:[phone] [place] increased blood pressures/headac he (chief complaint) Type 2 diabetes mellitus without complicationsInte rstitial cystitis (chronic) without hematuriaNicotine dependence, cigarettes, uncomplicatedOthe r chronic painEssential (primary) hypertensionMajor depressionOtitis externaEncounter for general adult medical exam w abnormal findingsHyperlipi demia 8 Sim Sheth. [address] [place] [address], [id number], [place]. tel:[phone] [facility], [facility] [address], [place], [place], [id number], [place] tel:[phone] [place] Type 2 diabetes mellitus without complications 0 8 Sim Godwinn. [address] [place] [address], [id number], [place]. 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 [address], [place], [id number], [place]. tel:[phone] [facility], [facility], [place], [place], [id number], [place] tel:[phone] [place] Semi Annual (chief complaint) Other chronic painUnspecified hearing loss, bilateralMajor depressionType 2 diabetes mellitus without complicationsOthe r specified arthritis, unspecified handNicotine dependence, cigarettes, uncomplicatedCOPD Essential (primary) hypertensionHyper lipidemiaIntersti tial cystitis (chronic) without hematuriaUnspecif ied cataractEncounter for general adult medical exam w abnormal findingsObstructi ve sleep apneaBilateral post-traumatic osteoarthritis of first carpometacarpal joints 8 Sim Domenic. [address] [place], [place], [id number], [place]. tel:[phone] [facility], [address] [address], [place], [place], [id number], [place] tel:[phone] [place] EAR PAIN- (chief complaint) DysuriaOtitis externa 8 Sim Domenic. [address] [place], [place], [id number], [place]. tel:[phone] [facility], [address] [address], [place], [place], [id number], [place] tel:[phone] [place] Follow Up of Rash- (chief complaint) Dermatitis, unspecified 8 Sim Domenic. [address] [place], [place], [id number], [place]. tel:[phone] [facility], [address] [address], [place], [place], [id number], [place] tel:[phone] [place] chest pain- (chief complaint)Chroni c pain (chief complaint) Ant chest-wall painOther oral mucositis (ulcerative)Prese nce of dental prosthetic device (complete) (partial)Unspecif ied hearing loss, bilateralOther chronic painMajor depression 8 Sim Sheth. [address] [place], [place], [id number], [place]. tel:[phone] [facility], [facility] [address] [place] [address], [id number], [place] tel:[phone] [place] chest pain (chief complaint)Chest pain- (chief complaint) Major depressionNicotin e dependence, cigarettes, uncomplicatedAnt chest-wall painCOPD with acute exacerbationOther specified arthritis, unspecified handOther specified dermatitisType 2 diabetes mellitus without complicationsOthe r chronic pain 0 8 Simjessica Godwinn. [address] [place], [place], [id number], [place]. tel:[phone] [facility], [address], [id number], [place] tel:[phone] [place] Type 2 diabetes mellitus without complications Dec-0 8 Kellie Aparicio. [address] [place], [address]. tel:[phone] [facility], [facility] [address] [place] [address], [id number], [place] tel:[phone] [place] depression (chief complaint)Additi onal details (chief complaint) Major depressionOther chronic painOtitis externaUnspecifie d osteoarthritis, unspecified site Dec-0 8 Simjessica Godwinn. [address] [place], [place], [id number], [place]. tel:[phone] [facility], [facility] [address] [place] [address], [id number], [place] tel:[phone] [place] Unspecified osteoarthritis, unspecified site Mar-0 201 8 Sim Sheth. [address] [place], [place], [id number], [place]. tel:[phone] [facility], [address], [place], [place], [id number], [place] tel:[phone] [place] Type 2 diabetes mellitus without complications 8 Efrem Victoriano. [address] [place], [address]. tel:[phone] [facility], [address], [place], [place], [id number], [place] tel:[phone] [place] Annual (chief complaint)pain (chief complaint) Type 2 diabetes mellitus without complicationsUnsp ecified osteoarthritis, unspecified siteCOPDMajor depressionOther chronic painEssential (primary) hypertensionHyper lipidemiaHistory of fallingInterstiti al cystitis (chronic) without hematuriaNicotine dependence, cigarettes, uncomplicatedOthe r intervertebral disc degeneration, lumbar regionComplete loss of teeth due to other specified cause, class IOther otitis externa, right earEncounter for general adult medical exam w abnormal findings 8 Sim Sheth. [address] [place], [place], [id number], [place]. tel:[phone] [facility], [address] [facility], [place], [place], [id number], [place] tel:[phone] [place] Type 2 diabetes mellitus without complications 8 Puffer Ana Quinteros. [address] [place], [place], [id number]. tel:[phone] [facility], [address], [place], [place], [id number], [place] tel:[phone] [place] Unspecified osteoarthritis, unspecified site 8 Puffer Ana Quinteros. [address] [place], [place], [id number]. tel:[phone] [facility], [address], [place], [place], [id number], [place] tel:[phone] [place] Type 2 diabetes mellitus without complications 8 Sim Domenic. [address] [place], [place], [id number], [place]. tel:[phone] [facility], [address], [place], [place], [id number], [place] tel:[phone] [place] Unspecified osteoarthritis, unspecified site 8 Sim Domenic. [address] [place], [place], [id number], [place]. tel:[phone] [facility], [address], [place], [place], [id number], [place] tel:[phone] [place] Unspecified osteoarthritis, unspecified site 8 Randy Summersah Beth. [address] [place], [place], [id number]. tel:[phone] [facility], [address], [place], [place], [id number], [place] tel:[phone] [place] to adress oxygen supplement use (chief complaint) ArthritisCOPDType 2 diabetes mellitus without complicationsOthe r otitis externa, right earMajor depressionOther chronic painEncounter for general adult medical exam w abnormal findings 7 Sim Domenic. [address] [place], [place], [id number], [place]. tel:[phone] [facility], [address], [place], [place], [id number], [place] tel:[phone] [place] Dermatitis 7 Sim Domenic. [address] [place], [place], [id number], [place]. tel:[phone] [facility], [address], [place], [place], [id number], [place] tel:[phone] [place] No Information 7 Sim Sheth. [address] [place], [place], [id number], [place]. tel:[phone] [facility], [address] [facility] [place] [address], [id number], [place] tel:[phone] [place] Other chronic pain Sep-2 7 Simjessica Godwinn. [address] [place], [place], [id number], [place]. tel:[phone] [facility], [address] [facility], [place], [place], [id number], [place] tel:[phone] [place] Pain in unspecified hand Sep-2 7 Aletha Matthews. [address] [place], [place], [id number]. tel:[phone] [facility], [facility], [place], [place], [id number], [place] tel:[phone] [place] Other chronic painOther lesions of median nerve, unspecified upper limb 7 Randy Perez Sridevi Quinteros. [address] [place], [place], [id number]. tel:[phone] [facility], [address] [place] [address], [id number], [place] tel:[phone] [place] Semi Annual (chief complaint)pain (chief complaint) Other chronic painInterstitial cystitis (chronic) without hematuriaOther lesions of median nerve, unspecified upper limbNicotine dependence, cigarettes, uncomplicatedHist ory of fallingType 2 diabetes mellitus without complicationsCOPD Essential (primary) hypertensionHyper lipidemiaMajor depressionEncount er for general adult medical exam w abnormal findings 7 Sim Sheth. [address] [place], [place], [id number], [place]. tel:[phone] [facility], [address] [place] [address], [id number], [place] tel:[phone] [place] [address] Other lesions of median nerve, unspecified upper limb 7 Puffer Ana Ramya. [address] [place], [place], [id number]. tel:[phone] [facility], [facility], [place], [place], [id number], [place] tel:[phone] [place] Follow Up of carpel tunnel surgery (chief complaint) DermatitisOther lesions of median nerve, unspecified upper limb May-0 7 Sim Domenic. [address] [place], [place], [id number], [place]. tel:[phone] [facility], [address] [address], [place], [place], [id number], [place] tel:[phone] [place] multiple complaint (chief complaint) Interstitial cystitis (chronic) without hematuriaOther lesions of median nerve, unspecified upper limbDermatitisNic otine dependence, cigarettes, uncomplicatedOthe r chronic pain 7 Sim Domenic. [address] [place], [place], [id number], [place]. tel:[phone] [facility], [address] [address], [place], [place], [id number], [place] tel:[phone] [place] Other chronic pain 7 Puffer Ana Ramya. [address] [place], [place], [id number]. tel:[phone] [facility], [address] [address], [place], [place], [id number], [place] tel:[phone] [place] Other chronic pain 7 Puffer Ana Ramya. [address] [place], [place], [id number]. tel:[phone] [facility], [facility], [place], [place], [id number], [place] tel:[phone] [place] Other chronic pain Apr- 7 Puffer Ana Ramya. [address] [place], [place], [id number]. tel:[phone] [facility], [address], [place], [place], [id number], [place] tel:[phone] [place] Other chronic pain Tony-1 0-201 7 Sim Domenic. [address] [place], [place], [id number], [place]. tel:[phone] [facility], [address], [place], [place], [id number], [place] tel:[phone] [facility] Other chronic pain Tony-0 7-201 7 [facility]. [address] [place] [address], [address]. tel:[phone] [facility], [address], [place], [place], [id number], [place] tel:[phone] [place] Pain in right upper arm Jaya-0 5-201 7 Sim Domenic. [address] [place], [place], [id number], [place]. tel:[phone] [facility], [address], [place], [place], [id number], [place] tel:[phone] [place] post fall eval (chief complaint) Pain in right upper armOther chronic painHistory of falling May-3 0-201 7 Aletha Matthews. [address], [place], [id number]. tel:[phone] [facility], [address], [place], [place], [id number], [place] tel:[phone] [place] Other chronic painType 2 diabetes mellitus without complications February-2 2-201 7 Sim Domenic. [address] [place], [place], [id number], [place]. tel:[phone] [facility], [address], [place], [place], [id number], [place] tel:[phone] [place] Other lesions of median nerve, unspecified upper limb Apr-2 7-201 7 Sim Domenic. [address] [place], [place], [id number], [place]. tel:[phone] [facility], [facility] [address] [place] [address], [id number], [place] tel:[phone] [place] Pain Apr-0 4-201 7 Sim Domenic. [address] [place], [place], [id number], [place]. tel:[phone] [facility], [facility], [place], [place], [id number], [place] tel:[phone] [place] Other chronic pain Mar-2 2-201 7 Sim Domenic. [address], [place], [id number], [place]. tel:[phone] [facility], [facility], [place], [place], [id number], [place] tel:[phone] [place] Other chronic pain Mar-0 7- 7 Daryl Osborne. [address] [place], [place], [id number]. tel:[phone] [facility], [facility], [place], [place], [id number], [place] tel:[phone] [place] Unspecified hearing loss, bilateral b-2 7 Sim Domenic. [address], [place], [id number], [place]. tel:[phone] [facility], [facility], [place], [place], [id number], [place] tel:[phone] [place] Annual (chief complaint) COPDMajor depressionOther chronic painHistory of fallingType 2 diabetes mellitus without complicationsEsse ntial (primary) hypertensionInter stitial cystitis (chronic) without hematuriaPresence of denturesNicotine dependence, cigarettes, uncomplicatedAcut e myringitis, left earHyperlipidemia Feb-2 3-201 7 Aletha Matthews. [address] [facility] [address] [place], [place], [id number]. tel:[phone] [facility], [address], [id number], [place] tel:[phone] [place] nausea and fatigue x 2 weeks. (chief complaint) COPDAcute serous otitis media, right earOther chronic pain 7 Aletha Matthews. 101 [facility] Stefanie., [place], [place], [id number]. tel:[phone] [facility], [address], [id number], [place] tel:[phone] [place] c/o coughing x5 days (chief complaint) COPDAcute serous otitis media, right earOther specified dermatitisPain in unspecified hand 7 Sim Domenic. [address] [place], [place], [id number], [place]. tel:[phone] [facility], [address], [id number], [place] tel:[phone] [place] Coughing, spitting up often and making chest hurt. (chief complaint) COPDCough 7 Aletha Matthews. [address] [facility] [address] [place], [place], [id number]. tel:[phone] [facility], [address] [place] [address], [id number], [place] tel:[phone] [place] Pain 6 Sim Domenic. [address] [place], [place], [id number], [place]. tel:[phone] [facility], [address], [id number], [place] tel:[phone] [place] No Information 6 Sim Domenic. [address] [place], [place], [id number], [place]. tel:[phone] [facility], [address] [facility] [address] [place] [address], [id number], [place] tel:[phone] [place] 3 month follow up- semi ppt wants to keep appt. post fa (chief complaint)Pain (chief complaint) Encounter for general adult medical exam w abnormal findingsPainOrtho static hypotensionType 2 diabetes mellitus without complicationsCOPD History of fallingMajor depression 6 Simjessica Godwinn. [address] [place] [address], [id number], [place]. tel:[phone] [facility], [facility] [address] [place] [address], [id number], [place] tel:[phone] [place] Encounter for adult periodic exam w/ abnormal finding 6 Sim [facility]. [address] [place] [address], [id number], [place]. tel:[phone] [facility], [facility], [place], [place], [id number], [place] tel:[phone] [place] Semi Annual (chief complaint) Major depressive disorder, single episode, unspecifiedType 2 diabetes mellitus without complicationsEsse ntial (primary) hypertensionNicot ine dependence, cigarettes, uncomplicatedOthe r chronic painOther intervertebral disc degeneration, lumbar regionAllergic rhinitis, unspecifiedInters titial cystitis (chronic) without hematuriaCOPD with acute exacerbationReten tion of urine, unspecifiedEncoun ter for adult periodic exam w/ abnormal findingErythema intertrigo 6 No Information [facility], [facility] [address] [place] [address], [id number], [place] tel:[phone] [place] Other intervertebral disc degeneration, lumbar region 6 Sim Domenic. [address] [place] [address], [id number], [place]. tel:[phone] [facility], [facility] [address] [place] [address], [id number], [place] tel:[phone] [place] Pain (chief complaint)Genera l follow up (chief complaint) Nicotine dependence, cigarettes, uncomplicatedUnsp ecified lesions of oral mucosaSpinal stenosis, lumbar regionOther chronic pain Tony-0 1-201 6 Sim Domenic. [address] [place], [place], [id number], [place]. tel:[phone] [facility], [address] [facility] [address], [place], [place], [id number], [place] tel:[phone] [place] ear pain (chief complaint)Otalgi a and other symptoms (chief complaint) Other otitis externa, right earNicotine dependence, cigarettes, uncomplicatedOthe r chronic painCOPD with acute exacerbation Jaya- 3-201 6 Sim Domenic. [address] [place], [place], [id number], [place]. tel:[phone] [facility], [address] [facility] [address] [facility], [place], [place], [id number], [place] tel:[phone] [place] Type 2 diabetes mellitus without complicationsUnsp ecified lesions of oral mucosa May- 6 Sim Domenic. [address] [place], [place], [id number], [place]. tel:[phone] [facility], [address] [facility], [place], [place], [id number], [place] tel:[phone] [place] Spinal stenosis, lumbar region Apr-2 0-201 6 Sim Domenic. [address] [place], [place], [id number], [place]. tel:[phone] [facility], [address] [facility], [place], [place], [id number], [place] tel:[phone] [place] No Information Apr-0 8-201 6 Sim Domenic. [address] [place], [place], [id number], [place]. tel:[phone] [facility], [address] [facility], [place], [place], [id number], [place] tel:[phone] [place] Spinal stenosis Mar- 7-201 6 Sim Domenic. [address] [place], [place], [id number], [place]. tel:[phone] [facility], [address] [place] [address], [id number], [place] tel:[phone] [place] No Information Mar-0 9201 6 Gideongladis Purdyn Sridevi Quinteros. [address] [place], [place], [id number]. tel:[phone] [facility], [address] [address], [place], [place], [id number], [place] tel:[phone] [place] pain (chief complaint)Semian nual (chief complaint) Other chronic painInterstitial cystitis (chronic) without hematuriaMajor depressive disorder, single episode, unspecifiedNicoti ne dependence, cigarettes, uncomplicatedEsse ntial (primary) hypertensionType 2 diabetes mellitus without complicationsHype rlipidemiaEncount er for general adult medical exam w abnormal findings Mar-0 6 No Information [facility], [address], [id number], [place] tel:[phone] [place] No Information Mar-0 6 Sim Domenic. [address] [place], [place], [id number], [place]. tel:[phone] [facility], [address] [address], [place], [place], [id number], [place] tel:[phone] [place] PharyngitisOther chronic painUnspecified acute lower respiratory infectionNicotine dependence, cigarettes, uncomplicatedMajo r depressive disorder, single episode, unspecified Feb-1 - 6 Sim Domenic. [address] [place], [place], [id number], [place]. tel:[phone] [facility], [address], [id number], [place] tel:[phone] [place] Other intervertebral disc degeneration, lumbar regionSpinal stenosis, lumbar region Feb-0 6 Sim Domenic. [address] [place], [place], [id number], [place]. tel:[phone] [facility], [address], [place], [place], [id number], [place] tel:[phone] [place] chronic pain (chief complaint) Other chronic pain 2 2-201 6 Sim Domenic. [address] [place], [place], [id number], [place]. tel:[phone] [facility], [address], [place], [place], [id number], [place] tel:[phone] [place] No Information 0 8 6 No Information [facility], [address], [place], [place], [id number], [place] tel:[phone] [place] Other chronic pain Dec-1 6201 5 Sim Domenic. [address] [place], [place], [id number], [place]. tel:[phone] [facility], [address], [place], [place], [id number], [place] tel:[phone] [place] No Information Sep- 5 No Information [facility], [address], [place], [place], [id number], [place] tel:[phone] [place] No Information Dec-1 5 Randy Quinteros. [address] [place], [place], [id number]. tel:[phone] [facility], [address], [place], [place], [id number], [place] tel:[phone] [place] No Information Sep-0 201 5 Despres Victoria. 55 [facility] [place], [place], [address]. tel:[phone] [facility], [address], [place], [place], [id number], [place] tel:[phone] [place] Other chronic pain 5 Sim Domenic. [address] [place], [place], [id number], [place]. tel:[phone] [facility], [address] [facility] [address] [place] [address], [id number], [place] tel:[phone] [place] Semiannual (chief complaint)Chroni c pain (chief complaint) Interstitial cystitis (chronic) without hematuriaOther chronic painNicotine dependence, cigarettes, uncomplicatedEsse ntial (primary) hypertensionOther intervertebral disc degeneration, lumbar regionMajor depressive disorder, single episode, unspecifiedType 2 diabetes mellitus without complicationsHist ory of fallingEncounter for general adult medical exam w abnormal findings 5 Sim Domenic. [address] [place] [address], [id number], [place]. tel:[phone] [facility], [facility], [place], [place], [id number], [place] tel:[phone] [place] Post fall, smoking cessation (chief complaint) History of fallingNicotine dependence, cigarettes, uncomplicatedEsse ntial (primary) hypertension 5 Simjessica Godwinn. [address] [place] [address], [id number], [place]. tel:[phone] [facility], [address] [facility], [place], [place], [id number], [place] tel:[phone] [place] semi annual (chief complaint)Pain (chief complaint) Diabetes mellitus without mention of complication, type II or unspecified type, not stated as uncontrolledMajor depressive disorder, single episode, unspecified degreeSpinal stenosis of lumbar region without neurogenic claudicationChron ic interstitial cystitisUnspecifi ed essential hypertensionOther and unspecified hyperlipidemiaTob acco use disorderRoutine Medical Exam 5 Simjessica Godwinn. [address] [place], [place], [id number], [place]. tel:[phone] [facility], [facility] [address] [place] [address], [id number], [place] tel:[phone] [place] Axillary lymph node enlargement 5 Sim Domenic. [address] [place], [place], [id number], [place]. tel:[phone] [facility], [facility] [address] [place] [address], [id number], [place] tel:[phone] [place] Major depressive disorder, single episode, unspecified degreeOther loss of teeth 5 Sim Domenic. [address] [place], [place], [id number], [place]. tel:[phone] [facility], [address], [id number], [place] tel:[phone] [place] hot flashes (chief complaint)f/u (chief complaint) Hot flashes 5 Fernando Buenrostro. [address] [place], [place], [id number]. tel:[phone] [facility], [facility] [address] [place] [address], [id number], [place] tel:[phone] [place] Ear pain (chief complaint)f/u (chief complaint) Hot flashesOther and unspecified chronic nonsuppurative otitis mediaOther chronic painMajor depressive disorder, single episode, unspecified degreeSpinal stenosis of lumbar region without neurogenic claudicationOral tissue diseaseDiabetes mellitus without mention of complication, type II or unspecified type, not stated as uncontrolled 5 Sim Domenic. [address] [place], [place], [id number], [place]. tel:[phone] [facility], [facility] [address] [place] [address], [id number], [place] tel:[phone] [place] Diabetes mellitus without mention of complication, type II or unspecified type, not stated as uncontrolled 5 Fernando Buenrostro. [address] [place], [place], [id number]. tel:[phone] [facility], 1 [address], [place], [id number], [place] tel:[phone] [place] mouth biopsy site pain (chief complaint) Mouth pain 5 No Information [facility], [address] [facility], [place], [place], [id number], [place] tel:[phone] [place] Right ear c/o (chief complaint) Hypoacusis 5 Sim Sheth. [address] [place], [place], [id number], [place]. tel:[phone] [facility], [address] [place] [address], [id number], [place] tel:[phone] [place] Follow Up of smoking cessation (chief complaint)Follow Up of urology appt (chief complaint) InsomniaAR - Allergic rhinitisTobacco use disorderChronic interstitial cystitis Sim Sheth. [address] [place], [place], [id number], [place]. tel:[phone] [facility], [address] [place] [address], [id number], [place] tel:[phone] [place] Follow Up of smoking cessation (chief complaint)Follow Up of pain (chief complaint)Follow Up of depression (chief complaint) Chronic interstitial cystitisMajor depressive disorder, single episode, unspecified degreeOther chronic painDegeneration of lumbar or lumbosacral intervertebral discDrug-induced low blood sugarTobacco use disorder No Information [facility], [facility] [address], [place], [place], [id number], [place] tel:[phone] [place] Kathy abnormal dental exam (chief complaint) Oral tissue disease 5 Sim Sheth. [address] [place], [place], [id number], [place]. tel:[phone] [facility], [address] [place] [address], [id number], [place] tel:[phone] [place] Change in vendor (chief complaint) Hypoxemia 5 Sim Godwinn. [address] [place] [address], [place], [place], [id number], [place]. tel:[phone] [facility], [address] [facility] [address], [place], [place], [id number], [place] tel:[phone] [place] No Information 5 No Information [facility], [address] [facility] [facility], [place], [place], [id number], [place] tel:[phone] [place] No Information 5 No Information [facility], [facility] [address], [place], [place], [id number], [place] tel:[phone] [place] Follow Up of pain (chief complaint)Follow Up of urine frequency (chief complaint)Follow Up of smoking (chief complaint) Other chronic painTobacco use disorderMajor depressive disorder, single episode, unspecified degreeChronic interstitial cystitis 5 No Information [facility], [address] [facility] [address], [place], [place], [id number], [place] tel:[phone] [place] depression (chief complaint)urine frequency (chief complaint)pain in low back and leg (chief complaint)oxygen use (chief complaint) Major depressive disorder, single episode, unspecified degreeOther chronic painTobacco use disorderHypoxemia Diabetes mellitus without mention of complication, type II or unspecified type, not stated as uncontrolledChron ic interstitial cystitis 5 No Information [facility], [address] [facility] [address], [place], [place], [id number], [place] tel:[phone] [place] No Information 5 No Information [facility], [address] [facility], [place], [place], [id number], [place] tel:[phone] [place] No Information 5 No Information [facility], [address] [facility] [address] [place] [address], [id number], [place] tel:[phone] [place] Chronic interstitial cystitis Dec- 5 Fernando Buenrostro. [address], [place], [place], [id number]. tel:[phone] [facility], [address] [facility] [address], [place], [place], [id number], [place] tel:[phone] [place] No Information 5 Fernando Buenrostro. [address], [place], [place], [id number]. tel:[phone] [facility], [address] [facility], [place], [place], [id number], [place] tel:[phone] [place] No Information 5 Fernando Buenrostro. [address], [place], [place], [id number]. tel:[phone] [facility], [facility] [address], [place], [place], [id number], [place] tel:[phone] [place] post enrollment (chief complaint)Chroni c conditions (chief complaint)to discuss next visit (chief complaint) Family history of malignant neoplasm of breastDiabetes Mellitus Type 2, UncomplicatedChro jeff interstitial cystitisDegenerat ion of lumbar or lumbosacral intervertebral discSpinal stenosis of lumbar region without neurogenic claudicationOther chronic painMajor depressive disorder, single episode, unspecified degreeTobacco use disorderOther and unspecified hyperlipidemiaHyp oxemiaCholesterol osis of gallbladderUnspec ified essential hypertensionOther loss of teeth 0 5 No Information [facility], [address] [facility], [place], [place], [id number], [place] tel:[phone] [place] No Information 0 5 No Information [facility], [address] [facility], [place], [place], [id number], [place] tel:[phone] [place] Pre-enrollment assessment (chief complaint) Routine Medical ExamScreening examination for pulmonary tuberculosis 5 Fernando Buenrostro. [address], [place], [place], [id number]. tel:[phone] Family History Family Member Type Diagnosis Age At Onset Mother Problem (finding) malignant neop lasm of breast in first degree relative Sister Problem (finding) Alive and well Sister Problem (finding) malignant neop lasm of breast in first degree relative Father Problem (finding) malignant neoplasm of p ancreas 50 Mother Problem (finding) diabetes melli tus in first degree relative Immunizations Vaccine Date Status Comments Fluzone High Dose administered So urce: New Immunization Record Zoster recombinant subunit administered S ource: New Immunization Record Zoster recombinant subunit administered S ource: New Immunization Record FLUAD QUAD - SENIO R DOSE administered Source: New Immuniza tion Record Fluzone High-Dose administered Source: New Immunization Record COVID-19 Moderna unknown Source: Oth er Registry COVID-19 (Moderna) administered Source: N ew Immunization Record Fluzone High-Dose administered Source: New Immunization Record COVID-19 Moderna administered Source: Oth er Registry COVID-19 Moderna administered Source: Oth er Registry Pneumococcal polysaccharide PPV23 administered Source: New Immuniza tion Record Hep B (adult) administered Source: New Im munization Record Fluzone High-Dose administered Source: New Immunization Record Hep B (adult) administered Source: New Im munization Record Influenza, recombinant, injectable, quadrivalent, preservative free Flublok Quad administered Source: New Immuniza tion Record Influenza, injectable, quadrivalent, preservative free, split virus, 3 years and older, Fluzone Quad Y administered Note: Afe brile. Teaching to report red, inlfammed injection site. Fever or chills. ; Source: New Immunization Record Influenza, injectable, quadrivalent, split virus, preservative free, Fluzone Intraderm Quad administered Note: states sh e recieved flu vaccine at [facility] pharmacy in [place] ; Source: Other Provider Flu-IIV3(TIV), p-free administered Source : Other Registry Influenza, injectable, trivalent, split virus, preservative free, 3 years and older Afluria 3062-7312 administered Source: New Immu nization Record pneumococcal conjugate vacci ne, 13 valent administered Source: New Immuniza tion Record Influenza, injectable, split virus, preservative free, 3 years and older Afluria 2 -2015 administered Source: New Immuniza tion Record Tdap administered Note: received at [place] ; Source: Source Unspecified PPV administered Source: New Imm unization Record Payers Payer name Insurance type Covered libertarian ID Authoriza tion(s) [facility] 16 [id number] [facility] 16 [id number] [facility] 16 [id number] [facility] 16 [id number] [facility] 16 [id number] [facility] 16 [id number] [facility] 16 [id number] [facility] 16 [id number] [facility] [id number] [facility] [id number] [facility] 16 [id number] [facility] 16 [id number] [facility] 16 [id number] [facility] [id number] [facility] [id number] [facility] [id number] [facility] [id number] Social History Type Description Quantity Date Captured Comments Alcohol Use Details Unknown Caffeine Use Details Unknown Tobacco Use Status Smoking Status No Information Sex Female Sexual Orientation Straight or heterosexual Jul Gender Identity Female Chief Complaint And Reason For Visit No Information Plan Of Treatment Date Type Action Status Goal ASCVD 10 year ri sk. Due on due Goal ASCVD 10 year ri sk. Due on due Goal [facility]VD 10 year ri sk. Due on due Goal ASCVD 10 year ri sk. Due on due Goal ASCVD 10 year ri sk. Due on due Goal ASCVD 10 year ri sk. Due on due Goal ASCVD 10 year ri sk. Due on due Goal ASCVD 10 year ri sk. Due on due Goal ASCVD 10 year ri sk. Due on due Goal ASCVD 10 year ri sk. Due on due Goal ASCVD 10 year ri sk. Due on due Goal ASCVD 10 year ri sk. Due on due Goal ASCVD 10 year ri sk. Due on due Goal ASCVD 10 year ri sk. Due on due Goal ASCVD 10 year ri sk. Due on due Goal ASCVD 10 year ri sk. Due on due Goal ASCVD 10 year ri sk. Due on due Goal ASCVD 10 year ri sk. Due on due Goal ASCVD 10 year ri sk. Due on due Goal ASCVD 10 year ri sk. Due on due Goal ASCVD 10 year ri sk. Due on due Goal ASCVD 10 year ri sk. Due on due Goal ASCVD 10 year ri sk. Due on due Goal Lipid panel. Due on due Goal GFR. Due on due Goal Foot exam. Due on 1 due Goal Eye Exam. Due on due Goal Colonoscopy. Due on due Goal H&P. Due on due Goal ALT (SGPT). Due on due Goal Hemoglobin A1C. Due on due Goal Dilated eye exam . Due on due Goal Zoster vaccine ( 1st). Due on due Goal Urine microalbum in. Due on due Goal Influenza vaccin e. Due on due Goal AST (SGOT). Due on due Goal Dental Exam. Due on due Goal Mammogram (Scree alphonso); Bilateral. Due on due Goal DEXA Scan. Due on 0 due Goal H&P. Due on due Goal Foot exam. Due on 1 due Goal Eye Exam. Due on due Goal Mammogram (Scree alphonso); Bilateral. Due on due Goal Urine microalbum in. Due on due Goal Influenza vaccin e. Due on due Goal Lipid panel. Due on due Goal Breast exam. Due on 956 due Goal Dilated eye exam . Due on due Goal GFR. Due on due Goal Hemoglobin A1C. Due on due Goal DEXA Scan. Due on 0 due Goal Colonoscopy. Due on due Goal Dental Exam. Due on due Goal GFR. Due on due Goal Colonoscopy. Due on due Goal Influenza vaccin e. Due on due Goal DEXA Scan. Due on 0 due Goal Dental Exam. Due on due Goal Eye Exam. Due on due Goal Dilated eye exam . Due on due Goal Lipid panel. Due on due Goal Dilated eye exam . Due on due Goal Lipid panel. Due on due Goal GFR. Due on due Goal Influenza vaccin e. Due on due Goal Eye Exam. Due on due Goal Dental Exam. Due on due Goal DEXA Scan. Due on 0 due Goal Colonoscopy. Due on due Goal Eye Exam. Due on due Goal Lipid panel. Due on due Goal Influenza vaccin e. Due on due Goal Colonoscopy. Due on due Goal Dilated eye exam . Due on due Goal GFR. Due on due Goal DEXA Scan. Due on 0 due Goal Dental Exam. Due on due Goal Dilated eye exam . Due on due Goal Eye Exam. Due on due Goal Lipid panel. Due on due Goal Influenza vaccin e. Due on due Goal GFR. Due on due Goal Colonoscopy. Due on due Goal Dental Exam. Due on due Goal DEXA Scan. Due on 0 due Goal Influenza vaccin e. Due on due Goal DEXA Scan. Due on 0 due Goal Eye Exam. Due on due Goal Colonoscopy. Due on due Goal Dilated eye exam . Due on due Goal Lipid panel. Due on due Goal Dental Exam. Due on due Goal GFR. Due on due Goal DEXA Scan. Due on 0 due Goal Dental Exam. Due on due Goal Colonoscopy. Due on due Goal Eye Exam. Due on due Goal Influenza vaccin e. Due on due Goal Lipid panel. Due on due Goal Dilated eye exam . Due on due Goal GFR. Due on due Goal GFR. Due on due Goal Influenza vaccin e. Due on due Goal Dilated eye exam . Due on due Goal Eye Exam. Due on due Goal Dental Exam. Due on due Goal Lipid panel. Due on due Goal Colonoscopy. Due on due Goal DEXA Scan. Due on 0 due Goal Influenza vaccin e. Due on due Goal Eye Exam. Due on due Goal Dental Exam. Due on due Goal GFR. Due on due Goal DEXA Scan. Due on 0 due Goal Colonoscopy. Due on due Goal Dilated eye exam . Due on due Goal Lipid panel. Due on due Goal Lipid panel. Due on due Goal Influenza vaccin e. Due on due Goal Dilated eye exam . Due on due Goal GFR. Due on due Goal Colonoscopy. Due on due Goal Dental Exam. Due on due Goal DEXA Scan. Due on 0 due Goal Eye Exam. Due on due Goal DEXA Scan. Due on 0 due Goal Eye Exam. Due on due Goal Lipid panel. Due on due Goal Influenza vaccin e. Due on due Goal Colonoscopy. Due on due Goal Dilated eye exam . Due on due Goal GFR. Due on due Goal Dental Exam. Due on due Goal Influenza vaccin e. Due on due Goal GFR. Due on due Goal Dilated eye exam . Due on due Goal Eye Exam. Due on due Goal Dental Exam. Due on due Goal DEXA Scan. Due on 0 due Goal Colonoscopy. Due on due Goal Lipid panel. Due on due Goal Influenza vaccin e. Due on due Goal Dental Exam. Due on due Goal DEXA Scan. Due on 0 due Goal Colonoscopy. Due on due Goal GFR. Due on due Goal Eye Exam. Due on due Goal Lipid panel. Due on due Goal Dilated eye exam . Due on due Goal Dental Exam. Due on due Goal GFR. Due on due Goal Colonoscopy. Due on due Goal Influenza vaccin e. Due on due Goal Lipid panel. Due on due Goal Dilated eye exam . Due on due Goal DEXA Scan. Due on 0 due Goal Eye Exam. Due on due Goal Lipid panel. Due on due Goal GFR. Due on due Goal Influenza vaccin e. Due on due Goal Dilated eye exam . Due on due Goal Dental Exam. Due on due Goal Eye Exam. Due on due Goal Colonoscopy. Due on due Goal DEXA Scan. Due on 0 due Goal Lipid panel. Due on due Goal GFR. Due on due Goal Eye Exam. Due on due Goal Dilated eye exam . Due on due Goal Influenza vaccin e. Due on due Goal Dental Exam. Due on due Goal Colonoscopy. Due on due Goal DEXA Scan. Due on 0 due Goal Lipid panel. Due on due Goal GFR. Due on due Goal Dilated eye exam . Due on due Goal DEXA Scan. Due on 0 due Goal Dental Exam. Due on due Goal Colonoscopy. Due on due Goal Influenza vaccin e. Due on due Goal Eye Exam. Due on due Goal DEXA Scan. Due on 0 due Goal Eye Exam. Due on due Goal Colonoscopy. Due on due Goal GFR. Due on due Goal Influenza vaccin e. Due on due Goal Lipid panel. Due on due Goal Dental Exam. Due on due Goal Dilated eye exam . Due on due Goal Dilated eye exam . Due on due Goal Dental Exam. Due on due Goal Colonoscopy. Due on due Goal Lipid panel. Due on due Goal GFR. Due on due Goal Eye Exam. Due on due Goal Influenza vaccin e. Due on due Goal GFR. Due on due Goal Influenza vaccin e. Due on due Goal Lipid panel. Due on due Goal Dilated eye exam . Due on due Goal Dental Exam. Due on due Goal Colonoscopy. Due on due Goal Eye Exam. Due on due Goal GFR. Due on due Goal Colonoscopy. Due on due Goal Dental Exam. Due on due Goal Eye Exam. Due on due Goal Influenza vaccin e. Due on due Goal Lipid panel. Due on due Goal Dilated eye exam . Due on due Goal Influenza vaccin e. Due on due Goal GFR. Due on due Goal Eye Exam. Due on due Goal Lipid panel. Due on due Goal Dental Exam. Due on due Goal Colonoscopy. Due on due Goal Dilated eye exam . Due on due Goal H&P. Due on due Goal H&P. Due on due Goal Dilated eye exam . Due on due Goal Dental Exam. Due on due Goal Influenza vaccin e. Due on due Goal Eye Exam. Due on due Goal Lipid panel. Due on due Goal GFR. Due on due Goal Colonoscopy. Due on due Goal Influenza vaccin e. Due on due Goal H&P. Due on due Goal Dental Exam. Due on due Goal Colonoscopy. Due on due Goal Dilated eye exam . Due on due Goal Eye Exam. Due on due Goal Lipid panel. Due on due Goal GFR. Due on due Goal Lipid panel. Due on due Goal Dental Exam. Due on due Goal Influenza vaccin e. Due on due Goal GFR. Due on due Goal H&P. Due on due Goal Dilated eye exam . Due on due Goal Eye Exam. Due on due Goal Colonoscopy. Due on due Goal Influenza vaccin e. Due on due Goal Colonoscopy. Due on due Goal H&P. Due on due Goal Dilated eye exam . Due on due Goal Dental Exam. Due on due Goal Lipid panel. Due on due Goal GFR. Due on due Goal Eye Exam. Due on due Goal Influenza vaccin e. Due on due Goal H&P. Due on due Goal Dental Exam. Due on due Goal Dilated eye exam . Due on due Goal GFR. Due on due Goal Colonoscopy. Due on due Goal Eye Exam. Due on due Goal H&P. Due on due Goal Dilated eye exam . Due on due Goal GFR. Due on due Goal Influenza vaccin e. Due on due Goal Eye Exam. Due on due Goal Dental Exam. Due on due Goal Colonoscopy. Due on due Goal Lipid panel. Due on due Goal Dental Exam. Due on due Goal Influenza vaccin e. Due on due Goal H&P. Due on due Goal Dilated eye exam . Due on due Goal Lipid panel. Due on due Goal Eye Exam. Due on due Goal Colonoscopy. Due on due Goal GFR. Due on due Goal Lipid panel. Due on due Goal Dilated eye exam . Due on due Goal Influenza vaccin e. Due on due Goal Dental Exam. Due on due Goal GFR. Due on due Goal Colonoscopy. Due on due Goal H&P. Due on due Goal Eye Exam. Due on due Goal Colonoscopy. Due on due Goal Eye Exam. Due on due Goal H&P. Due on due Goal Influenza vaccin e. Due on due Goal Dental Exam. Due on due Goal Dilated eye exam . Due on due Goal GFR. Due on due Goal Influenza vaccin e. Due on due Goal Dilated eye exam . Due on due Goal H&P. Due on due Goal GFR. Due on due Goal Dental Exam. Due on due Goal Eye Exam. Due on due Goal Colonoscopy. Due on due Goal GFR. Due on due Goal Influenza vaccin e. Due on due Goal Dilated eye exam . Due on due Goal Colonoscopy. Due on due Goal Dental Exam. Due on due Goal H&P. Due on due Goal Eye Exam. Due on due Goal Dental Exam. Due on due Goal GFR. Due on due Goal Colonoscopy. Due on due Goal Dilated eye exam . Due on due Goal Eye Exam. Due on due Goal Foot exam. Due on due Goal H&P. Due on due Goal Influenza vaccin e. Due on due Goal Colonoscopy. Due on due Goal H&P. Due on due Goal Dental Exam. Due on due Goal Eye Exam. Due on due Goal Dilated eye exam . Due on due Goal GFR. Due on due Goal Foot exam. Due on due Goal Influenza vaccin e. Due on due Goal H&P. Due on due Goal GFR. Due on due Goal Influenza vaccin e. Due on due Goal Colonoscopy. Due on due Goal Foot exam. Due on due Goal Eye Exam. Due on due Goal Dental Exam. Due on due Goal Dilated eye exam . Due on due Goal Foot exam. Due on due Goal Dental Exam. Due on due Goal H&P. Due on due Goal Colonoscopy. Due on due Goal GFR. Due on due Goal Dilated eye exam . Due on due Goal Influenza vaccin e. Due on due Goal Eye Exam. Due on due Goal Foot exam. Due on due Goal GFR. Due on due Goal Influenza vaccin e. Due on due Goal H&P. Due on due Goal Colonoscopy. Due on due Goal Eye Exam. Due on due Goal Dilated eye exam . Due on due Goal Dental Exam. Due on due Goal Colonoscopy. Due on due Goal Foot exam. Due on due Goal GFR. Due on due Goal Influenza vaccin e. Due on due Goal Dental Exam. Due on due Goal H&P. Due on due Goal Eye Exam. Due on due Goal Dilated eye exam . Due on due Goal Colonoscopy. Due on due Goal H&P. Due on due Goal Influenza vaccin e. Due on due Goal GFR. Due on due Goal Dilated eye exam . Due on due Goal Foot exam. Due on due Goal Eye Exam. Due on due Goal Dental Exam. Due on due Goal Colonoscopy. Due on due Goal Dental Exam. Due on due Goal Influenza vaccin e. Due on due Goal GFR. Due on due Goal H&P. Due on due Goal Foot exam. Due on due Goal Dilated eye exam . Due on due Goal Eye Exam. Due on due Goal Colonoscopy. Due on due Goal Dental Exam. Due on due Goal H&P. Due on due Goal Eye Exam. Due on due Goal Dilated eye exam . Due on due Goal Influenza vaccin e. Due on due Goal Foot exam. Due on due Goal GFR. Due on due Goal Dental Exam. Due on due Goal Colonoscopy. Due on due Goal H&P. Due on due Goal Foot exam. Due on due Goal Influenza vaccin e. Due on due Goal Eye Exam. Due on due Goal Dilated eye exam . Due on due Goal GFR. Due on due Goal Influenza vaccin e. Due on due Goal Foot exam. Due on due Goal GFR. Due on due Goal Dilated eye exam . Due on due Goal Eye Exam. Due on due Goal Colonoscopy. Due on due Goal H&P. Due on due Goal Dental Exam. Due on due Goal Dilated eye exam . Due on due Goal Foot exam. Due on due Goal GFR. Due on due Goal Dental Exam. Due on due Goal H&P. Due on due Goal Colonoscopy. Due on due Goal Influenza vaccin e. Due on due Goal Eye Exam. Due on due Goal Dilated eye exam . Due on due Goal GFR. Due on due Goal Eye Exam. Due on due Goal Foot exam. Due on due Goal Colonoscopy. Due on due Goal Dental Exam. Due on due Goal Influenza vaccin e. Due on due Goal H&P. Due on due Goal Dilated eye exam . Due on due Goal Influenza vaccin e. Due on due Goal H&P. Due on due Goal GFR. Due on due Goal Colonoscopy. Due on due Goal Eye Exam. Due on due Goal Dental Exam. Due on due Goal Foot exam. Due on due Goal Dilated eye exam . Due on due Goal Eye Exam. Due on due Goal Foot exam. Due on due Goal Dental Exam. Due on due Goal H&P. Due on due Goal Colonoscopy. Due on due Goal GFR. Due on due Goal Influenza vaccin e. Due on due Goal Dental Exam. Due on due Goal GFR. Due on due Goal H&P. Due on due Goal Eye Exam. Due on due Goal Colonoscopy. Due on due Goal Foot exam. Due on due Goal Dilated eye exam . Due on due Goal Influenza vaccin e. Due on due Goal GFR. Due on due Goal H&P. Due on due Goal Dental Exam. Due on due Goal Dilated eye exam . Due on due Goal Eye Exam. Due on due Goal Foot exam. Due on due Goal Influenza vaccin e. Due on due Goal Colonoscopy. Due on due Goal Foot exam. Due on due Goal H&P. Due on due Goal Influenza vaccin e. Due on due Goal Colonoscopy. Due on due Goal Eye Exam. Due on due Goal Dilated eye exam . Due on due Goal GFR. Due on due Goal Dental Exam. Due on due Goal Colonoscopy. Due on due Goal Dilated eye exam . Due on due Goal Foot exam. Due on due Goal H&P. Due on due Goal GFR. Due on due Goal Dental Exam. Due on due Goal Influenza vaccin e. Due on due Goal Eye Exam. Due on due Goal Foot exam. Due on due Goal Colonoscopy. Due on due Goal Dilated eye exam . Due on due Goal Eye Exam. Due on due Goal GFR. Due on due Goal Influenza vaccin e. Due on due Goal Dental Exam. Due on due Goal H&P. Due on due Goal Dilated eye exam . Due on due Goal H&P. Due on due Goal Influenza vaccin e. Due on due Goal Eye Exam. Due on due Goal Dental Exam. Due on due Goal GFR. Due on due Goal Foot exam. Due on due Goal Colonoscopy. Due on due Goal Dental Exam. Due on due Goal H&P. Due on due Goal Dilated eye exam . Due on due Goal Eye Exam. Due on due Goal Foot exam. Due on due Goal GFR. Due on due Goal Colonoscopy. Due on due Goal Influenza vaccin e. Due on due Goal Influenza vaccin e. Due on due Goal Colonoscopy. Due on due Goal Dental Exam. Due on due Goal H&P. Due on due Goal GFR. Due on due Goal Dilated eye exam . Due on due Goal Foot exam. Due on due Goal Eye Exam. Due on due Goal Colonoscopy. Due on due Goal Dental Exam. Due on due Goal GFR. Due on due Goal Foot exam. Due on due Goal Influenza vaccin e. Due on due Goal Dilated eye exam . Due on due Goal H&P. Due on due Goal Eye Exam. Due on due Goal GFR. Due on due Goal Foot exam. Due on due Goal Eye Exam. Due on due Goal Dental Exam. Due on due Goal Influenza vaccin e. Due on due Goal Colonoscopy. Due on due Goal H&P. Due on due Goal Dilated eye exam . Due on due Goal H&P. Due on due Goal Foot exam. Due on due Goal Eye Exam. Due on due Goal Influenza vaccin e. Due on due Goal Dilated eye exam . Due on due Goal Mammogram (Scree alphonso); Bilateral. Due on due Goal Dental Exam. Due on due Goal GFR. Due on due Goal Colonoscopy. Due on due Goal Dental Exam. Due on due Goal Mammogram (Scree alphonso); Bilateral. Due on due Goal Dilated eye exam . Due on due Goal Foot exam. Due on due Goal GFR. Due on due Goal Influenza vaccin e. Due on due Goal H&P. Due on due Goal Eye Exam. Due on due Goal Colonoscopy. Due on due Goal Mammogram (Scree alphonso); Bilateral. Due on due Goal Influenza vaccin e. Due on due Goal H&P. Due on due Goal Eye Exam. Due on due Goal GFR. Due on due Goal Dilated eye exam . Due on due Goal Dental Exam. Due on due Goal Colonoscopy. Due on due Goal Foot exam. Due on due Goal Foot exam. Due on due Goal Dilated eye exam . Due on due Goal GFR. Due on due Goal Eye Exam. Due on due Goal H&P. Due on due Goal Mammogram (Scree alphonso); Bilateral. Due on due Goal Dental Exam. Due on due Goal Influenza vaccin e. Due on due Goal Colonoscopy. Due on due Goal Mammogram (Scree alphonso); Bilateral. Due on due Goal Colonoscopy. Due on due Goal Dental Exam. Due on due Goal Influenza vaccin e. Due on due Goal Dilated eye exam . Due on due Goal Foot exam. Due on due Goal H&P. Due on due Goal GFR. Due on due Goal Eye Exam. Due on due Goal Dilated eye exam . Due on due Goal GFR. Due on due Goal Influenza vaccin e. Due on due Goal Foot exam. Due on due Goal Mammogram (Scree alphonso); Bilateral. Due on due Goal Colonoscopy. Due on due Goal Eye Exam. Due on due Goal Dental Exam. Due on due Goal H&P. Due on due Goal Eye Exam. Due on due Goal Dental Exam. Due on due Goal Colonoscopy. Due on due Goal Dilated eye exam . Due on due Goal Influenza vaccin e. Due on due Goal Foot exam. Due on due Goal Mammogram (Scree alphonso); Bilateral. Due on due Goal GFR. Due on due Goal H&P. Due on due Goal Eye Exam. Due on due Goal Foot exam. Due on due Goal Dental Exam. Due on due Goal Mammogram (Scree alphonso); Bilateral. Due on due Goal Influenza vaccin e. Due on due Goal GFR. Due on due Goal Dilated eye exam . Due on due Goal H&P. Due on due Goal Colonoscopy. Due on due Goal Dental Exam. Due on due Goal Mammogram (Scree alphonso); Bilateral. Due on due Goal H&P. Due on due Goal Influenza vaccin e. Due on due Goal Foot exam. Due on due Goal Eye Exam. Due on due Goal Colonoscopy. Due on due Goal Dilated eye exam . Due on due Goal GFR. Due on due Goal Dental Exam. Due on due Goal Mammogram (Scree alphonso); Bilateral. Due on due Goal Colonoscopy. Due on due Goal Foot exam. Due on due Goal Influenza vaccin e. Due on due Goal Dilated eye exam . Due on due Goal Eye Exam. Due on due Goal H&P. Due on due Goal GFR. Due on due Goal Dilated eye exam . Due on due Goal H&P. Due on due Goal GFR. Due on due Goal Mammogram (Scree alphonso); Bilateral. Due on due Goal Influenza vaccin e. Due on due Goal Foot exam. Due on due Goal Colonoscopy. Due on due Goal Dental Exam. Due on due Goal Eye Exam. Due on due Goal GFR. Due on due Goal Foot exam. Due on due Goal Dilated eye exam . Due on due Goal H&P. Due on due Goal Eye Exam. Due on due Goal Mammogram (Scree alphonso); Bilateral. Due on due Goal Influenza vaccin e. Due on due Goal Colonoscopy. Due on due Goal Dental Exam. Due on due Goal H&P. Due on due Goal Influenza vaccin e. Due on due Goal Urine microalbum in. Due on due Goal Colonoscopy. Due on due Goal Dental Exam. Due on due Goal Dilated eye exam . Due on due Goal Foot exam. Due on due Goal GFR. Due on due Goal Lipid panel. Due on due Goal Eye Exam. Due on due Goal Mammogram (Scree alphonso); Bilateral. Due on due Goal Foot exam. Due on due Goal Lipid panel. Due on due Goal GFR. Due on due Goal Urine microalbum in. Due on due Goal H&P. Due on due Goal Dental Exam. Due on due Goal Dilated eye exam . Due on due Goal Eye Exam. Due on due Goal Mammogram (Scree alphonso); Bilateral. Due on due Goal Colonoscopy. Due on due Goal Eye Exam. Due on due Goal Colonoscopy. Due on due Goal Mammogram (Scree alphonso); Bilateral. Due on due Goal H&P. Due on due Goal GFR. Due on due Goal Dental Exam. Due on due Goal Foot exam. Due on due Goal Dilated eye exam . Due on due Goal H&P. Due on due Goal GFR. Due on due Goal Foot exam. Due on due Goal Dilated eye exam . Due on due Goal Colonoscopy. Due on due Goal Eye Exam. Due on due Goal Dental Exam. Due on due Goal Mammogram (Scree alphonso); Bilateral. Due on due Goal Foot exam. Due on due Goal Dental Exam. Due on due Goal Colonoscopy. Due on due Goal Eye Exam. Due on due Goal Mammogram (Scree alphonso); Bilateral. Due on due Goal GFR. Due on due Goal Dilated eye exam . Due on due Goal H&P. Due on due Goal Eye Exam. Due on due Goal Mammogram (Scree alphonso); Bilateral. Due on due Goal H&P. Due on due Goal Dental Exam. Due on due Goal Colonoscopy. Due on due Goal Dilated eye exam . Due on due Goal Foot exam. Due on due Goal GFR. Due on due Goal Dental Exam. Due on due Goal Mammogram (Scree alphonso); Bilateral. Due on due Goal Colonoscopy. Due on due Goal Eye Exam. Due on due Goal Dilated eye exam . Due on due Goal H&P. Due on due Goal GFR. Due on due Goal Foot exam. Due on due Goal Dental Exam. Due on due Goal GFR. Due on due Goal Dilated eye exam . Due on due Goal Colonoscopy. Due on due Goal Foot exam. Due on due Goal H&P. Due on due Goal Mammogram (Scree alphonso); Bilateral. Due on due Goal Eye Exam. Due on due Goal GFR. Due on due Goal Foot exam. Due on due Goal Dilated eye exam . Due on due Goal H&P. Due on due Goal Colonoscopy. Due on due Goal Mammogram (Scree alphonso); Bilateral. Due on due Goal Eye Exam. Due on due Goal Dental Exam. Due on due Goal H&P. Due on due Goal Mammogram (Scree alphonso); Bilateral. Due on due Goal GFR. Due on due Goal Dilated eye exam . Due on due Goal Eye Exam. Due on due Goal Foot exam. Due on due Goal Dental Exam. Due on due Goal Colonoscopy. Due on due Goal GFR. Due on due Goal Dental Exam. Due on due Goal H&P. Due on due Goal Dilated eye exam . Due on due Goal Colonoscopy. Due on due Goal Foot exam. Due on due Goal Mammogram (Scree alphonso); Bilateral. Due on due Goal Eye Exam. Due on due Goal Colonoscopy. Due on due Goal Dental Exam. Due on due Goal Dilated eye exam . Due on due Goal H&P. Due on due Goal Foot exam. Due on due Goal Eye Exam. Due on due Goal Mammogram (Scree alphonso); Bilateral. Due on due Goal GFR. Due on due Goal Dental Exam. Due on due Goal Foot exam. Due on due Goal Eye Exam. Due on due Goal Dilated eye exam . Due on due Goal H&P. Due on due Goal Mammogram (Scree alphonso); Bilateral. Due on due Goal Colonoscopy. Due on due Goal GFR. Due on due Goal Colonoscopy. Due on due Goal Foot exam. Due on due Goal GFR. Due on due Goal Mammogram (Scree alphonso); Bilateral. Due on due Goal Eye Exam. Due on due Goal Dental Exam. Due on due Goal H&P. Due on due Goal Dilated eye exam . Due on due Goal Dilated eye exam . Due on due Goal GFR. Due on due Goal Foot exam. Due on due Goal Mammogram (Scree alphonso); Bilateral. Due on due Goal Dental Exam. Due on due Goal Colonoscopy. Due on due Goal H&P. Due on due Goal Eye Exam. Due on due Goal Dental Exam. Due on due Goal Dilated eye exam . Due on due Goal GFR. Due on due Goal Mammogram (Scree alphonso); Bilateral. Due on due Goal Colonoscopy. Due on due Goal Foot exam. Due on due Goal Eye Exam. Due on due Goal H&P. Due on due Goal Eye Exam. Due on due Goal Dental Exam. Due on due Goal Dilated eye exam . Due on due Goal GFR. Due on due Goal Mammogram (Scree alphonso); Bilateral. Due on due Goal H&P. Due on due Goal Colonoscopy. Due on due Goal Foot exam. Due on due Goal GFR. Due on due Goal Dilated eye exam . Due on due Goal Foot exam. Due on due Goal Mammogram (Scree alphonso); Bilateral. Due on due Goal Dental Exam. Due on due Goal H&P. Due on due Goal Colonoscopy. Due on due Goal Eye Exam. Due on due Goal Mammogram (Scree alphonso); Bilateral. Due on due Goal Dental Exam. Due on due Goal H&P. Due on due Goal GFR. Due on due Goal Dilated eye exam . Due on due Goal Colonoscopy. Due on due Goal Eye Exam. Due on due Goal Colonoscopy. Due on due Goal Eye Exam. Due on due Goal H&P. Due on due Goal Mammogram (Scree alphonso); Bilateral. Due on due Goal GFR. Due on due Goal Dilated eye exam . Due on due Goal Dental Exam. Due on due Goal Tobacco cessation counseling completed Goal Eye Exam. Due on due Goal GFR. Due on due Goal Dental Exam. Due on due Goal Dilated eye exam . Due on due Goal H&P. Due on due Goal Mammogram (Scree alphonso); Bilateral. Due on due Goal Colonoscopy. Due on due Goal GFR. Due on due Goal Dilated eye exam . Due on due Goal Mammogram (Scree alphonso); Bilateral. Due on due Goal Eye Exam. Due on due Goal Colonoscopy. Due on due Goal Dental Exam. Due on due Goal H&P. Due on due Goal Mammogram (Scree alphonso); Bilateral. Due on due Goal GFR. Due on due Goal Eye Exam. Due on due Goal Colonoscopy. Due on due Goal H&P. Due on due Goal Dilated eye exam . Due on due Goal Dental Exam. Due on due Goal GFR. Due on due Goal Dental Exam. Due on due Goal Dilated eye exam . Due on due Goal Colonoscopy. Due on due Goal H&P. Due on due Goal Mammogram (Scree alphonso); Bilateral. Due on due Goal Eye Exam. Due on due Goal Dilated eye exam . Due on due Goal GFR. Due on due Goal Eye Exam. Due on due Goal Dental Exam. Due on due Goal H&P. Due on due Goal Colonoscopy. Due on due Goal Mammogram (Scree alphonso); Bilateral. Due on due Goal Dilated eye exam . Due on due Goal Mammogram (Scree alphonso); Bilateral. Due on due Goal Dental Exam. Due on due Goal GFR. Due on due Goal Eye Exam. Due on due Goal Colonoscopy. Due on due Goal H&P. Due on due Goal Dental Exam. Due on due Goal H&P. Due on due Goal GFR. Due on due Goal Mammogram (Scree alphonso); Bilateral. Due on due Goal Colonoscopy. Due on due Goal Eye Exam. Due on due Goal Dilated eye exam . Due on due Goal Colonoscopy. Due on due Goal Mammogram (Scree alphonso); Bilateral. Due on due Goal Eye Exam. Due on due Goal H&P. Due on due Goal Dental Exam. Due on due Goal GFR. Due on due Goal Dilated eye exam . Due on due Goal GFR. Due on due Goal Eye Exam. Due on due Goal H&P. Due on due Goal Dilated eye exam . Due on due Goal Dental Exam. Due on due Goal Mammogram (Scree alphonso); Bilateral. Due on due Goal Colonoscopy. Due on due Goal H&P. Due on due Goal GFR. Due on due Goal Colonoscopy. Due on due Goal Eye Exam. Due on due Goal Dental Exam. Due on due Goal Dilated eye exam . Due on due Goal Mammogram (Scree alphonso); Bilateral. Due on due Goal Dental Exam. Due on due Goal Dilated eye exam . Due on due Goal Mammogram (Scree alphonso); Bilateral. Due on due Goal H&P. Due on due Goal Eye Exam. Due on due Goal GFR. Due on due Goal Colonoscopy. Due on due Goal Dental Exam. Due on due Goal Colonoscopy. Due on due Goal Eye Exam. Due on due Goal GFR. Due on due Goal Dilated eye exam . Due on due Goal Mammogram (Scree alphonso); Bilateral. Due on due Goal H&P. Due on due Goal GFR. Due on due Goal Eye Exam. Due on due Goal Dental Exam. Due on due Goal Mammogram (Scree alphonso); Bilateral. Due on due Goal H&P. Due on due Goal Colonoscopy. Due on due Goal H&P. Due on due Goal GFR. Due on due Goal Colonoscopy. Due on due Goal Dental Exam. Due on due Goal Eye Exam. Due on due Goal Eye Exam. Due on due Goal GFR. Due on due Goal Colonoscopy. Due on due Goal H&P. Due on due Goal Dental Exam. Due on due Goal GFR. Due on due Goal Eye Exam. Due on due Goal Colonoscopy. Due on due Goal Dental Exam. Due on due Goal H&P. Due on due Goal H&P. Due on due Goal Colonoscopy. Due on due Goal GFR. Due on due Goal Dental Exam. Due on due Goal Eye Exam. Due on due Goal GFR. Due on due Goal Eye Exam. Due on due Goal H&P. Due on due Goal Colonoscopy. Due on due Goal Dental Exam. Due on due Goal Eye Exam. Due on due Goal GFR. Due on due Goal Dental Exam. Due on due Goal Colonoscopy. Due on due Goal Eye Exam. Due on due Goal GFR. Due on due Goal Dental Exam. Due on due Goal Colonoscopy. Due on due Goal GFR. Due on due Goal Eye Exam. Due on due Goal Dental Exam. Due on due Goal Colonoscopy. Due on due Goal GFR. Due on due Goal Eye Exam. Due on due Goal Colonoscopy. Due on due Goal Colonoscopy. Due on due Goal Eye Exam. Due on due Goal GFR. Due on due Goal Eye Exam. Due on due Goal Colonoscopy. Due on due Goal GFR. Due on due Goal GFR. Due on due Goal Eye Exam. Due on due Goal Colonoscopy. Due on due Goal GFR. Due on due Goal Colonoscopy. Due on due Goal Eye Exam. Due on due Goal GFR. Due on due Goal Eye Exam. Due on due Goal Colonoscopy. Due on due Goal Eye Exam. Due on due Goal GFR. Due on due Goal Colonoscopy. Due on due Goal GFR. Due on due Goal Colonoscopy. Due on due Goal Influenza vaccin e. Due on due Goal Eye Exam. Due on due Goal Influenza vaccin e. Due on due Goal Eye Exam. Due on due Goal Colonoscopy. Due on due Goal GFR. Due on due Goal Influenza vaccin e. Due on due Goal Colonoscopy. Due on due Goal GFR. Due on due Goal Lipid panel. Due on due Goal Eye Exam. Due on due Goal Colonoscopy. Due on due Goal Lipid panel. Due on due Goal Influenza vaccin e. Due on due Goal GFR. Due on due Goal Lipid panel. Due on due Goal Colonoscopy. Due on due Goal Influenza vaccin e. Due on due Goal GFR. Due on due Goal Lipid panel. Due on due Goal Influenza vaccin e. Due on due Goal GFR. Due on due Goal Colonoscopy. Due on due Goal Colonoscopy. Due on due Goal Influenza vaccin e. Due on due Goal Lipid panel. Due on due Goal GFR. Due on due Goal Dilated eye exam . Due on due Goal Lipid panel. Due on due Goal GFR. Due on due Goal Influenza vaccin e. Due on due Goal Colonoscopy. Due on due Goal GFR. Due on due Goal Influenza vaccin e. Due on due Goal Colonoscopy. Due on due Goal Lipid panel. Due on due Goal Dilated eye exam . Due on due Goal Influenza vaccin e. Due on due Goal Dilated eye exam . Due on due Goal Lipid panel. Due on due Goal GFR. Due on due Goal Colonoscopy. Due on due Goal Colonoscopy. Due on due Goal Dilated eye exam . Due on due Goal Lipid panel. Due on due Goal GFR. Due on due Goal Influenza vaccin e. Due on due Goal Lipid panel. Due on due Goal GFR. Due on due Goal Dilated eye exam . Due on due Goal Colonoscopy. Due on due Goal Influenza vaccin e. Due on due Goal Colonoscopy. Due on due Goal Influenza vaccin e. Due on due Goal Dilated eye exam . Due on due Goal GFR. Due on due Goal Mammogram (Scree alphonso); Bilateral. Due on due Goal Lipid panel. Due on due Goal Dilated eye exam . Due on due Goal Influenza vaccin e. Due on due Goal GFR. Due on due Goal Colonoscopy. Due on due Goal Lipid panel. Due on due Goal GFR. Due on due Goal Dilated eye exam . Due on due Goal Lipid panel. Due on due Goal Mammogram (Scree alphonso); Bilateral. Due on due Goal Influenza vaccin e. Due on due Goal Colonoscopy. Due on due Goal Influenza vaccin e. Due on due Goal GFR. Due on due Goal Lipid panel. Due on due Goal Dilated eye exam . Due on due Goal Mammogram (Scree alphonso); Bilateral. Due on due Goal Colonoscopy. Due on due Goal Tobacco cessation counseling completed Goal Lipid panel. Due on due Goal GFR. Due on due Goal Dilated eye exam . Due on due Goal Colonoscopy. Due on due Goal Influenza vaccin e. Due on due Goal H&P. Due on due Goal GFR. Due on due Goal Influenza vaccin e. Due on due Goal Dilated eye exam . Due on due Goal Colonoscopy. Due on due Goal Lipid panel. Due on due Goal Tdap. Due on due Goal Lipid panel. Due on due Goal Pneumococcal vaccine due Goal GFR. Due on due Goal Dilated eye exam . Due on due Goal Influenza vaccin e. Due on due Goal Colonoscopy. Due on due Goal GFR. Due on due Goal Influenza vaccin e. Due on due Goal Dilated eye exam . Due on due Goal Lipid panel. Due on due Goal Pneumococcal vaccine due Goal Colonoscopy. Due on due Goal Dilated eye exam . Due on due Goal Tdap. Due on due Goal Colonoscopy. Due on due Goal Lipid panel. Due on due Goal Influenza vaccin e. Due on due Goal GFR. Due on due Goal Tdap. Due on due Goal Dilated eye exam . Due on due Goal Lipid panel. Due on due Goal Influenza vaccin e. Due on due Goal GFR. Due on due Goal Colonoscopy. Due on due Goal Tdap. Due on due Goal Colonoscopy. Due on due Goal GFR. Due on due Goal Dilated eye exam . Due on due Goal Lipid panel. Due on 015 due Goal Influenza vaccin e. Due on due Referral Ordered: Referrals: Dentistry. Evaluate and treat Appointment date/timeframe: 09/10/2024 ordered Referral Referred To: Physical Therapy Ordered: Referrals: Therapies/Rehabilitation. Physical Therapy. Consult ordered Referral Ordered: Referrals: Dentistry. Consult Appointment date/timeframe: 11/08/2023 ordered Referral Ordered: Referrals: Ophthalmology. Consult Appointment date/timeframe: 11/05/2024 ordered Referral Ordered: Referrals: Orthopedic Surgery Appointment date/timeframe: 08/18/2023 ordered Referral Referred To: Ponn[place] Ordered: Referrals: Pain Medicine. [place]. Location: [facility]. Surgery Appointment date/timeframe: 04/04/2023 ordered Referral Ordered: Referrals: Oral Maxillofacial Surgery ordered Referral Ordered: Referrals: Urogynecology Appointment date/timeframe: 12/14/2022 ordered Referral Referred To: [address], [address] [id number] Ordered: Referrals: Rheumatology. [facility].. [facility] ordered Referral Ordered: Referrals: Maxillofacial Surgery Appointment date/timeframe: 09/16/2022 ordered Referral Ordered: Referrals: Audiology Hearing and Speech Appointment date/timeframe: 03/11/2022 ordered Referral Ordered: Referrals: Occupational Therapy Appointment date/timeframe: 09/14/2021 ordered Referral Referred To: Dr. Lance Ordered: Referrals: Orthopedic Surgery. Dr. Lance. Surgery Appointment date/timeframe: 07/09/2021 ordered Referral Ordered: Referrals: Orthopedic Surgery. Evaluate and treat Appointment date/timeframe: 01/21/2021 ordered Referral Referred To: Dr. Vail Ordered: Referrals: Ophthalmology. Dr. Vail Appointment date/timeframe: 02/11/2021 ordered Referral Ordered: Referrals: Gynecology. Evaluate and treat Appointment date/timeframe: 02/03/2021 ordered Referral Ordered: Referrals: Neurosurgery. Evaluate and treat Appointment date/timeframe: 04/29/2020 ordered Referral Referred To: [place] [facility] [place]dered: Referrals: Hand surgery. Dr Olesya VIVAR. Follow-up and Treat Appointment date/timeframe: 05/08/2020 ordered Referral Ordered: Referrals: Urogynecology. Follow-up and Treat Appointment date/timeframe: 05/11/2020 ordered Referral Ordered: Referrals: Gastroenterology. Evaluate and treat Appointment date/timeframe: 05/28/2020 ordered Referral Ordered: CT CHEST SPINE W/DYE Appointment date/timeframe: 04/15/2020 ordered Referral Ordered: X-RAY EXAM CHEST 2 VIEWS ordered Referral Ordered: Referrals: Dermatology Appointment date/timeframe: 12/24/2019 ordered Referral Referred To: Physical Therapy Ordered: Referrals: Physical Therapy ordered Referral Ordered: Referrals: Pain Medicine Appointment date/timeframe: 11/19/2019 ordered Referral Ordered: CT THORAX W/O DYE Appointment date/timeframe: 03/09/2020 ordered Referral Ordered: SCR MAMMO BI INCL CAD ordered Referral Ordered: Referrals: Gastroenterology. Consult Appointment date/timeframe: 05/28/2020 ordered Referral Ordered: CT ABDOMEN W/DYE ordered Referral Ordered: CT ABDOMEN W/DYE Right pancreas Appointment date/timeframe: 03/09/2020 ordered Referral Ordered: Referrals: Ophthalmology. Follow-up and Treat Appointment date/timeframe: 10/10/2019 ordered Referral Ordered: Referrals: Neurosurgery. Consult Appointment date/timeframe: 03/04/2020 ordered Referral Ordered: Referrals: Hand surgery. Follow-up and Treat Appointment date/timeframe: 08/07/2019 ordered Referral Referred To: Dr Dacosta Ordered: Referrals: Hand surgery. Dr Dacosta. Surgery Appointment date/timeframe: 06/27/2019 ordered Referral Referred To: [place] Ordered: Referrals: Podiatry. [facility]. Consult Appointment date/timeframe: 06/25/2019 ordered Referral Referred To: [facility] Ordered: Referrals: Pain Medicine. [facility] [place]ointment date/timeframe: 11/13/2019 ordered Referral Referred To: Dr Dacosta Ordered: Referrals: Hand surgery. Dr Dacosta. Follow-up and Treat Appointment date/timeframe: 06/21/2019 ordered Referral Ordered: Echo Transthoracic Appointment date/timeframe: 05/15/2019 ordered Referral Ordered: ECG MONITOR/REPORT, 24 HRS Appointment date/timeframe: 01/31/2019 ordered Referral Ordered: DUPLEX SCAN OF EXTRACRANIAL ARTERIES; COMPLETE BILATERAL STUDY ordered Referral Referred To: Dr Vail Ordered: Referrals: Ophthalmology. Dr Vail. Follow-up and Treat Appointment date/timeframe: 12/26/2018 ordered Referral Referred To: [facility] Ordered: Referrals: Orthopedic Surgery. [facility]. Consult Appointment date/timeframe: 11/12/2018 ordered Referral Ordered: Referrals: Dermatology. Consult. Surgery Appointment date/timeframe: 11/19/2018 ordered Referral Referred To: [facility] urogyn Ordered: Referrals: Gynecology. [facility] urogyn. Consult Appointment date/timeframe: 09/10/2018 ordered Referral Ordered: Referrals: Gynecology. Consult Appointment date/timeframe: 08/28/2018 ordered Referral Ordered: CT ANGIOGRAPHY CHEST Appointment date/timeframe: 08/13/2018 ordered Referral Referred To: [facility] Ordered: Referrals: Hand surgery. [facility]. Evaluate and treat Appointment date/timeframe: 06/21/2018 ordered Referral Referred To: Dr Judah Watts Ordered: Referrals: Dentistry. Dr Judah Watts. Consult Appointment date/timeframe: 03/09/2018 ordered Referral Ordered: Referrals: Audiology Hearing and Speech. Follow-up and Treat ordered Referral Ordered: CHEST X-RAY ordered Referral Referred To: [facility] Ordered: Referrals: Physical Medicine and Rehabilitation. [facility]. Consult ordered Referral Referred To: Dr Barney Ordered: Referrals: Ophthalmology. Dr Barney. Evaluate and treat Appointment date/timeframe: 01/25/2018 ordered Referral Referred To: [facility] Ordered: Referrals: [employer] As[employer]er. [facility]. Follow-up and Treat ordered Referral Ordered: Referrals: Psychiatry. Evaluate and treat ordered Referral Ordered: POLYSOMNOGRAPHY W/CPAP Appointment date/timeframe: 10/11/2017 ordered Referral Ordered: Referrals: Dermatology. Consult Appointment date/timeframe: 10/30/2017 ordered Referral Ordered: X-RAY EXAM OF LOWER LEG ordered Referral Ordered: X-RAY EXAM OF WRIST ordered Referral Referred To: Occupational Therapy Ordered: Referrals: Occupational Therapy. Follow-up and Treat ordered Referral Ordered: X-RAY EXAM OF HUMERUS Right arm Appointment date/timeframe: 03/15/2017 ordered Referral Ordered: Referrals: Hand surgery. Evaluate and treat Appointment date/timeframe: 04/04/2017 ordered Referral Ordered: Referrals: Otolaryngology. Evaluate and treat Appointment date/timeframe: 12/26/2016 ordered Referral Ordered: MOTOR NERVE CONDUCTION TEST Appointment date/timeframe: 01/25/2017 ordered Referral Referred To: [place] Ordered: Referrals: Urology. [facility] Appointment date/timeframe: 06/24/2016 ordered Referral Referred To: [facility] Ordered: Referrals: Tra[employer] As[employer]er. [facility]. Follow-up and Treat Appointment date/timeframe: 06/24/2016 ordered Referral Referred To: dr ruddy vail Ordered: Referrals: Ophthalmology. dr ruddy vail. Follow-up and Treat ordered Referral Ordered: Referrals: Oral Maxillofacial Surgery. Surgery ordered Referral Referred To: Barbara Sweeney Ordered: Referrals: Oral Maxillofacial Surgery. Barbara Sweeney. Consult Appointment date/timeframe: 02/04/2016 ordered Referral Referred To: Dr Sanchez Ordered: Referrals: Orthopedic Surgery. Dr Sanchez. Consult ordered Referral Referred To: Dr Meyers Ordered: Referrals: Physical Medicine and Rehabilitation. Dr Meyers. Surgery ordered Referral Ordered: MRI LUMBAR SPINE W/O DYE Appointment date/timeframe: 2015 ordered Referral Ordered: X-RAY EXAM OF HAND ordered Referral Referred To: Occupational Therapy Ordered: Referrals: Occupational Therapy. Evaluate and treat ordered Referral Referred To: [facility] Ordered: Referrals: Plastic Surgery. [facility]. Consult ordered Referral Referred To: Physical Therapy Ordered: Referrals: Physical Therapy. Evaluate and treat ordered Referral Referred To: [facility] Ordered: Referrals: Tra[employer] As[employer]er. [facility]. Evaluate and treat Appointment date/timeframe: 11/10/2015 ordered Referral Ordered: Referrals: Clinical Psychology. Evaluate and treat ordered Referral Ordered: US EXAM, EXTREMITY Appointment date/timeframe: 06/29/2015 ordered Referral Ordered: Referrals: Dentistry ordered Referral Ordered: Referrals: Otolaryngology. Consult ordered Referral Ordered: Spirometry Appointment date/timeframe: 02/02/2015 ordered Referral Referred To: dr. henriquez Ordered: Referrals: Urology. dr. henriquez. Location: [facility]. Consult Appointment date/timeframe: 01/26/2015 ordered Referral Ordered: MAMMOGRAM, SCREENING Appointment date/timeframe: 03/03/2015 ordered Referral Ordered: Referrals: [facility]. Consult Appointment date/timeframe: 02/16/2015 ordered Future Order: Radiology Order Ch est X-ray, 2 views ([id number]), Ordered on: Ordered Future Order: Radiology Order Ma mmogram (Screen); Bilat, 2-view study of each breast, incl computer-aided detection when performed ([id number]), Ordered on: Ordered Future Order: Lab Order HEMOGLOB IN A1C (496), Ordered on: Ordered Future Order: Lab Order COMPREHE NSIVE METABOLIC PANEL ([id number]), Ordered on: Ordered Future Order: Lab Order CBC (INC LUDES DIFF/PLT) ([id number]), Ordered on: Ordered Future Order: Radiology Order Ab domen and Pelvis CT WITHOUT Contrast ([id number]), Ordered on: Ordered Future Order: Lab Order Oxycodon e, Qualitative, without Confirmation, Urine ([id number]), Sent on: Sent Future Order: Lab Order Drug Sammie t, General Toxicology, Urine ([id number]), Collected on: , Sent on: Sent History Of Present Illness Encounter Date Complaint History Of Prese nt Illness Semi-Annual Danae is a69 ye ars old female who has been enrolled in the [facility] program since 2014 and is being seen for their semiannual. Pt lives in the community with her son and granddaughter. Patient had been seen in clinic. There has been no ER visits, hospitalizations or SNF stays in the last 6 months. Collective reviewed. Diagnoses Reviewed.No new diagnosesConsults:-Dental: implants to #22 and #27; had follow up on 11/08/23- needs another dental referral for dentures to have new dentures so will see [facility]-Vision: diabetes w/o retinopathy-Neurosur02/2023- no longer requiring at this time-Ortho: canceled 10/2023- ppt had said she is not willing to go through back injections until she is put under she reports [facility] has done this in the past. Looking into if this can be done for ppt. If not, she rpeorts she will not go back to ortho. -Pain management: 05/2023: injections to lumbar L4-L5 and L5-S1; follow up as neededScreenings: Continuing to screen-Chest CT: multiple pulmonary nodules- chest CT in 04/2020 no presumed benign with no further follow up-Mammogram: 10/2023; routine screening yearly-Colonoscopy: no longer wanting at this time-Abdomen CT: Adrenal carcinoma: non specific thickening on abdomen CT- order in place4 Ms:Mentation: alert, understands medical complexity to a degree-Orientation: A&Ox3-MOCA: Medications:-Medications reviewed.-Changes: NoMobility:-Ambulates: Independent-Falls: 2 falls in the last 6 monthsWMM:-Advance Directives changed/reviewed: DNR/DNI. -HCP: Not invoked Acute Visit Danae is a 69 y ears old female who was seen for an acute visit at her house. Pt complains of pain in her ribs and it is not a new complaint. She has previously had episodes of costochondritis that responds well to steroids. This episode seems to be similar in nature. She denies any shortness of breath, chest pressure or heaviness, fevers, chills, nausea, vomiting, diaphoresis or any other symptoms at this time. Earlier, we received a message from the [facility] that pt's BS was elevated to 400's. Discussed with the [facility] to administer 32 units of Lantus today and for the next 5 days while she is on prednisone. Will recheck and reevaluate and may need a more permanent increase in her dose of Lantus. Acute Visit Danae is a 69 y ears old female who was seen for a follow up visit in the clinic. Pt recently had hand surgery and has not started therapy yet. She is scheduled to start therapy next week. She continues to have pain in her hand. She has been taking it easy and not overwork herself. Her pain is well controlled at this time. Acute Visit Danae is a 69 y ears old female who was seen for an acute visit at her house. Pt states that she has been having some pain in her chest/ribs. Pt states that she has had this pain before and it gets exacerbated every now and then.. She has been trying to treat it with NSAIDs with minimal to no relief. She states that she had to be treated with prednisone in the past which led to an improvement in her symptoms. Semi-Annual Danae is a69 ye ars old female who has been enrolled in the [facility] program since 2014 and is being seen for their semiannual. Pt lives in the community with her son and granddaughter. Patient had been seen in clinic. There has been no ER visits, hospitalizations or SNF stays in the last 6 months. Collective reviewed. Diagnoses Reviewed.No new diagnosesConsults:-Dental: 11/08/2023: implants to #22 and #27; had follow up on 11/08/23- needs another dental referral for dentures to have new dentures so will see [facility]-Vision: 04/28/22: diabetes w/o retinopathy- glasses rx given- order in place for ophtho-Neurosur02/2023- no longer requiring at this time-Ortho: canceled 10/2023- ppt had said she is not willing to go through back injections until she is put under she reports [facility] has done this in the past. Looking into if this can be done for ppt. If not, she rpeorts she will not go back to ortho. -Pain management: 05/2023: injections to lumbar L4-L5 and L5-S1; follow up as neededScreenings: Continuing to screen/No longer screening d/t limited life expectancy-Chest CT: multiple pulmonary nodules- chest CT in 04/2020 no presumed benign with no further follow up-Mammogram: 10/2023; routine screening yearly- due 10/2024-Colonoscopy: no longer wanting at this time-Abdomen CT: Adrenal carcinoma: non specific thickening on abdomen CT- order in place4 Ms:Mentation: alert, understands medical complexity to a degree-Orientation: A&Ox3-MOCA: Medications:-Medications reviewed.-Changes: NoMobility:-Ambulates: Independent-Falls: 2 falls in the past yearWMM:-Advance Directives changed/reviewed: DNR/DNI. -HCP: Not invoked Follow-up Danae is a 68 y ears old female who was seen for a follow up visit at her home. Pt states that she does not have any new complaints or concerns. She continues to have her chronic pains but they are somewhat controlled with medication. Pt was seen at her home with her son present during the appointment. Acute Visit Danae is a 68 y ears old female who was seen in the clinic for an acute visit. Pt states that she has been getting hot flashes recently over the last few days. Pt is postmenopausal and her last menses was about 20 years ago as per pt. Pt states that she started having these hot flashes recently over the last week or so. Pt also mentions that her depression may be getting worse. She states that she does not have any energy and spends most of her days in the bed. She is taking her medications as prescribed. She was previously working with a therapist and would like to go back since it was helping. Acute Visit Acute Visit Danae is a 68 y r old female who presents to the clinic for an acute visit.Ppt states that she has been having severe pain in her right wrist for the last few months now. She had similar pain and issues in her left wrist and it was operated on by Dr Lance at [facility] which led to significant relief. She wants to see Dr Lance again to help with the right wrist. Ppt also states that she has been very depressed recently. She states that she misses her father. Also she has been depressed due to her current circumstances. She is trying her best to manage everything. She previously used to see a therapist but does not anymore. Ppt states that she has been taking 22 units of lantus as it was recently changed. She continues to have significantly elevated sugars. Her sugar level this morning was 386. Follow-up 06/2024 A1C: 9.0 increase Lantus to 22unitsContinue metformin Semi-Annual Danae is a 68 y ear old female who has been enrolled in the [facility] program since 2014 and is being seen for their semiannual. She lives in the community with her son and granddaughter. Patient had been seen in clinic. In the last six months:Hospitalizations noneSNF admits noneED visits - noneFalls one NovDiagnoses Reviewed.-No new diagnosesConsults:-Dental: last 02/[address]-Vision: 04/28/22: diabetes w/o retinopathy- glasses rx given- order in place for optho. Needs appointment.-Neurosur02/2023- no longer requiring at this time-Ortho: canceled 10/2023- ppt had said she is not willing to go through back injections until she is put under she reports [facility] has done this in the past. Looking into if this can be done for ppt. If not, she reports she will not go back to ortho. -Pain management: 05/2023: injections to lumbar L4-L5 and L5-D9Utgwegnaow: Continuing to screen/No longer screening d/t limited life expectancy-Chest CT: multiple pulmonary nodules- chest CT in 04/2020 no presumed benign with no further follow up-Mammogram: 10/2023; routine screening yearly- due 10/2024-Colonoscopy: no longer wanting at this time-Abdomen CT: Adrenal carcinoma: non specific thickening on abdomen CT- order in place4 Ms:Mentation: alert, understands medical complexity to a degree-Orientation: A&Ox3-MOCA: 11/2023- MOCA 05/2024Medications:-Medications reviewed.-Changes: NoMobility:-Ambulates: Independent-Falls: last fall 11/2023WMM:-Advance Directives changed/reviewed: DNR/DNI. MOLST 2021.-HCP: Not invokedInterview: PPT reports being in an online relationship with a celebrity/actor. She gave conflicting information, reports she had/had not met him, has been reporting going to [place] to see my boyfriend then reported it was actually her niece. PPT has long history of confabulation.Upon further investigation it appears that she is being scammed. This was addressed with her as she has been sending this entity money. This has happened previously. Upon hearing this news she became rather distressed and interview/visit was stopped as participant left exam room.(+) ROS: cognitive impairment, back pain (chronic), anxietyEXAM: limited due to anxiety. NAD. AAOx4. RRR. LCTA. (+) PAD findings.plan: follow up as needed, new PCP to assume care. Semi-Annual Danae is a 68 y ear old female who has been enrolled in the PACE program since 2015 and is being seen for their semiannual. She lives in the community with her son and granddaughter. Patient had been seen in clinic. In the last six months:Hospitalizations noneSNF admits noneED visits - noneFalls one NovDiagnoses Reviewed.-No new diagnosesConsults:-Dental: last 02/[address]-Vision: 04/28/22: diabetes w/o retinopathy- glasses rx given- order in place for optho. Needs appointment.-Neurosur02/2023- no longer requiring at this time-Ortho: canceled 10/2023- ppt had said she is not willing to go through back injections until she is put under she reports [facility] has done this in the past. Looking into if this can be done for ppt. If not, she reports she will not go back to ortho. -Pain management: 05/2023: injections to lumbar L4-L5 and L5-C8Vhmglwrxfp: Continuing to screen/No longer screening d/t limited life expectancy-Chest CT: multiple pulmonary nodules- chest CT in 04/2020 no presumed benign with no further follow up-Mammogram: 10/2023; routine screening yearly- due 10/2024-Colonoscopy: no longer wanting at this time-Abdomen CT: Adrenal carcinoma: non specific thickening on abdomen CT- order in place4 Ms:Mentation: alert, understands medical complexity to a degree-Orientation: A&Ox3-MOCA: 11/2023- MOCA 05/2024Medications:-Medications reviewed.-Changes: NoMobility:-Ambulates: Independent-Falls: last fall 11/2023WMM:-Advance Directives changed/reviewed: DNR/DNI. MOLST 2021.-HCP: Not invokedInterview: PPT reports being in an online relationship with a celebrity/actor. Upon further investigation it appears that she is being scammed. This was addressed with her as she has been sending this entity money. This has happened previously. Upon hearing this news she became rather distressed and interview/visit was stopped as participant left exam room. Follow-up CXR negative. D/ C levaquin. Continue OTC cough medications she has purchased. Will send order for mucinex prn and cont apap prn malaise. f/u PCP in one week. Sick Visit Acute Visit PPT seen today f or new onset productive cough x2. History of COPD. Sats 94% room air. Endorsing rib pain with cough. Daughter bought cough medication and throat spray. (+) ROS: productive cough x2 days, denies shortness of breath. Stopped smoking one year ago. Rib pain, malaise, fatigue. Sore Throat, joint achingEXAM: AAOx4, NAD. Productive cough ascertained. RRR. Anxious. No obvious strep throat. Lungs congested, diminished. Sats 94% room air. plan: STAT CXR. rule out covid. Continue OTC meds she has already obtained. APAP for joint pain. Will send chloraseptic spray at ppt request. Start abx for pneumonia. Suspicious for PNA vs COPD exacerbation. Acute Visit Comments: Danae is a 68 year old female who is being seen for a RTBS for right wrist pain. Right wrist pain started: years ago She reports this pain is: 06/18 constantShe reported she had a similar problem w/ her left hand.Left wrist had carpel tunnel release in 07/2021. Left CMC arthroplasty w/ flexor carpi radialis tendon transfer. She believes this was with Dr. Michael Lance a surgeon at [facility]. She states her left wrist had remarkably improved after surgery. Plan: f/u w/ [facility] (order in place) Acute Visit Comments: Danae is a 68 year old female who is being seen today for a RTBS. 02/08: ppt reported to severe sore throat. Ordered amoxicillin as unable to get strep test completed before weekend. Had also had SE nurse visit Monday. She was agreeable to plan. 02/09: nurse went to the house where ppt did not answer. She called saying nobody came and was asking for medication. Amoxicillin resent to local pharmacy for medicinal plant picker. Today: 02/11-Ppt was to come into for a visit. She was en route where she ended up reporting to sanitation truck driver she had chest pain and requested to go to the hospital. Pharmacy Technician Assistant brought ppt to [facility] where she had EKG performed. She reported she was then asked to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 earFSgIncre ase mirabegrondec nsulinPatient is seen today to address multiple concerns. She had at least one episode of hypoglycemia in the 50s. She reports that she has not had any significant hyperglycemia. I do not have fingersticks before me. HAd some transient food insecurity, OK now per ptShe is assessment noted by [facility] to ostensibly be hypertensive and she had significant headaches last week. She correlates her headaches with her glucose readings and blood pressure. Accuracy of this is unclear. She reports her headaches resolved. Of note she has reported chest pain several weeks ago. Exact pattern and consistency of this is unclear.She is currently having episodic right ear pain. It is more pruritic and painful but present there. She is also having some symptoms of discomfort in her left throat.She presents today very fatigued. She says she was up every 15 minutes overnight with interstitial cystitis symptoms. She has relatively little relief from the nocturnal Valium and current dose of melatonin. She wonders about increase. It does appear that it is 10 milligrams but may be that I never sent to the pharmacy. She believes she is currently taking 5 mg.She continues to have significant bilateral hand pain. She is not anxious to consider surgery for her CMC.She spoke of her new apartment. She is overall quite happy there. She is getting along with the landlord. Her son is also getting along with the landlord and doing chores.We explored her IC. She is not found to patient benefited from the Mirabegron. I told her I was not necessarily the opinion that she would. I did inquire if she wishes to go to urology again and/or be seen elsewhere with significant expertise in interstitial cystitis. She is disinterested at this pointI received a note that VNA had a systolic blood pressure 172 this morning.ROS:Occasional headachesNo acute vision changeFatigueEar symptoms as aboveHaving dysphagia per se but some discomfort to the left throat.Not currently having chest pain. She may have had some some weeks ago the exact nature of this is somewhat unclearNot currently dyspneic, coughing a bit less. She says she is smoking only 1-2 cigarettes a day currently on ChantixNo appreciable GI disturbanceChronic pain without change, she asked if I could provide the prescriptions for refill now is she takes in to pharmacy and [place] at timesShe is not currently in counseling and wishes to resume.Exam:Fatigued-appearing middle-aged woman in no acute distressShe is normocephalicPupils are reactive, sclerae anictericThere is minimal irritation of the external canal on the right. The left canal x-ray appears to be more irritated but is not at all symptomatic. Tympanic membranes are intact bilaterallyShe has femoral active saliva in her mouth. There is generally white discoloration of the soft palate and to less extent the pupil surfaces. This is not patchy but rather more diffuse. I do not see any adherent plaques currently. There was very minimal left cervical adenopathy. It is not particularly bothersome to her. I'm not able to see any significant erythema in the oropharynx.Heart sounds regular with S1-S2.Lungs presently clear to auscultation bilaterally without wheeze or significant rhonchi as she usually hasAbdomen is soft, nontender nondistended groceries are without clubbing, cyanosis or any significant lower extremity edema.Repeated blood pressure in the right upper extremity it appeared to be 128/72. Auscultation of the blood pressure on the left was actually appreciably lower and the auscultatory quality of the pulse seemed somewhat different. I palp blood pressure was approximately 110 systolic. By auscultation appeared to be approximately 114/56She is awake, alert, ambulatory. Lower extremity pulses appear to be intact and symmetric Accompany to specialist appt Barbie araujo with long-standing bilateral CMC arthritis. Has needed a steroid injection but is phobic. She initially declined to do it unless under anesthesia which was not feasible. She had significant debility from the arthritis. She indicated that she would do so if I accompanied her.-I accompanied her to the hand surgery office at [facility]. She was seen by the physician field administrative assistant and determination was made to inject the left CMC, with the majority of her pain and debility arose from. Under fluoroscopic guidance. This was done with me present. It was well tolerated. The hand surgery staff give her postprocedure instructions.Approximately 70 min spent Semi Annual MovingadoptionEx ercising lessDizzyOptoDyspnea, no inhalerSmokingHand surgeryPatient is seen today for semiannual. She has had no recent hospitalizations. She's had no recent visits. She's not had large functional changes of late. She continues to receive [facility] services for insulin. This particularly upon her difficulty with hand dexterity.She reportedly continues to have significant social upheaval in her life. She is on again off again with her significant other. She is currently moving to a new abode, similarly with her son. There is ongoing difficulty with her son's legal involvement. Her daughter is . She recently saw her grandchildren with court supervised visitation and there was appreciable dissatisfaction and angst about that.The patient had been exercising more however now has decreased that and is not entirely clear why. I suspect this relates to her overall mood. She continues to do better overall with regard to her diabetic control compared to the days old. She is on some occasions having relative hypoglycemia although none that are very significant. She denies any significant hyperglycemia. I have not seen recent log from the [facility]NA.Ifeanyi Saw Dr Vail ([facility]) in Aug. There are issues with the glasses as she wants certain add-ons that are not necessarily covered so she is waiting to have the money to do so.She continues to smoke. She suggests she is decreasing of breath certainly not very to stop. Continues to have some degree of dyspnea seemingly related to her COPD. She suggests she does not have a rescue inhaler.She continues to have significant pain and seemingly debility related to her bilateral carpal metacarpal joints. She had been offered steroid injection past by hand surgery however declined it due to fear of the injection. She had hoped to receive his under anesthesia but that did not prove to be possible. She suggests that she will go if I accompany her.The rash she had previously has resolved since entirety. The etiology was never immediately clear. She says that the lesion to her gluteal cleft is much improved after being present for many months if not over a year. With regard to her chronic pain, she continues to have predominantly lower back pain. As best I can tell there is no significant radicular component. She does have some degree of right lateral leg pain although not clear to me if that is radiculopathy. She finds that the opioids that she has been on chronically for helpful in allowing her to function. She strongly believes absent M she would not be able to function and bed daily. 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 She is able to wear her dentures.I lack clarity as to the process regularity she is seeing her therapist with. As best I can tell, she has not been seeing her therapist with the same regularity of late. She does have a psychiatrist.ROS:Sleep is variable, has significant sleep disturbance seemingly related to her interstitial cystitisNo appreciable headaches on a regular basisVision not acutely changed but needs the glasses as aforementionedHearing is decreasedNo dysphagiaNo current chest painExertional dyspnea, stable and presumed related to her COPD with ongoing smokingNo marked abdominal/GI complaints currentlyPatient has interstitial cystitis. Has perhaps mild urinary incontinence.No vaginal bleeding or dischargeSkin complaints largely improved as after mentionedDoes not describe memory disorder or focal neurologic disorder otherwiseShe endorses what sounds to be some postural lightheadeness at timesPHQ-9 not done todayExamination:Vital signs are noted, weight is notedWell-developed middle-aged woman in no acute distressShe is normocephalicPupils are equal, round and reactive. Extraocular movements are full. She may have early cataracts.Tympanic membranes appear to be intact bilaterally. No obvious effusionShe has full dentures, no obvious oral lesions although she did not remove her denturesThere is no obvious cervical adenopathy, thyroid enlargement or JVDNo Supraclavic or Axillary adenopathy. reast exam deferredHeart sounds are distant and regular with S1 and S2. I am skeptical regarding any murmurLungs are diffusely diminished. There is minimal to no wheeze. There are no ralesAbdomen is soft, nontender nondistended. There are no obvious masses. There is no clear organomegaly although difficult examination to excludeExtremities are without clubbing, cyanosis or edemaPeripheral pulses are intact. Her nails are well kempt. Sensory is intact to monofilamentFacial symmetry is preserved. She moves all extremities with good strength. Speech is fluent. Cerebellar function is grossly intact. No obvious tremor or change in tone.She is chronically mildly dysphoric. The bulk of the surround her psychosocial scenario. She is mildly tearful when talking of her grandchildren. There is no overt thought disorder. There are no psychotic or delusional components. EAR PAIN- Patient is seen today as sensibly for complaint of ear pain. She says that the ear pain has steadily decreased from previous. She has finished her drops. She says she was in the pool but not recently. The right ear feels entirely fine. The left ear still is minimally bothersome. She has chronic hearing loss but nothing acute. She's not having imbalance.She reports she is having slight GI upset from Chantix, in her opinion. Additionally, she is having significant upset because of changes in living circumstance. She says she slept poorly last night. She feels that her interstitial cystitis is flaring. She does have slight dysuria, frequency and urgency.She needs medications renewed.She had excision of lesion to her lower gum by dental/oral surgery. She says 2 of the sutures come out. There is one additional suture that is still there.She reports her weight is stable. She may have lost 2 pounds on our scale.ROS: LimitedNot acutely ill safe for the aforementioned complaintsNo acute dyspneaAcute chest painNot currently vomitingNo current diarrheaExamination:Well-developed, middle-aged woman in no acute distressShe is awake, alert and attentiveShe is normocephalicPupils are reactive, sclerae anictericThe left ear is examined. There are no external lesions. At the 3 o'clock position there may be minimal residual plaque however if present is very minimal. Somewhat difficult to visualize given the anatomy of her ear. There is no erythema. There is no exudate elsewhere. The tympanic membrane is intact. There is slight dullness but no obvious effusion. There is no erythema. The ear itself is not tender.The site of excision in the lower, appears to be healing well. There is one suture left in. There is no obvious dehiscence or purulence.She does not appear to have suprapubic tenderness but is obviously squirming about somewhat appearing as if she has to urinate. Follow Up of Rash- Patient is en today for follow-up of persistent rash. Rash began approximately 2 weeks ago. Of note, she had been at her significant other's home. They had eaten out. At the time she identified no new soaps or other potential sources. She denies exposure despite having taken up hiking. At the time of last evaluation the rash seemed to be feeding. She was treated with 3 days of steroids. She reports that there was no significant improvement. She continues to have significant rash or at the very least pruritus, to her trunk primarily. It involves her back, chest, abdomen. They're all relatively few lesions on the arm but they are present. There are no obvious lesions in the hand or feet although she continues to complain of pruritus to the hand.She did start Chantix as well as resume use of antidepressant shortly before onset of rash. She is using somewhat perfumed soap. She opted to be treated for scabies although it was my strong clinical suspicion that she did not have it. It is somewhat difficult to ascertain if her pruritus actually increased after treatment. She is bathing regularly. There are no pets in the home. No one else is living in the home.I noted that she was wheezing somewhat and inquired. She said she is somewhat exacerbated currently. She is fairly intent on continuing the Chantix although she is still smoking.She is not having systemic allergic reaction. No oral swelling. I do not believe that the above COPD symptomatology is related to her allergic symptoms. She awakens at night anyhow and therefore is pruritic at night.ROS:No current headacheVision okayChewing and swallowing fairNo chest painNo new GI complaintsNo new urinary complaintsFingersticks stable, erik of 80 and this morningExam:Well-developed, middle-aged woman in no distressThere does not appear to be any facial rash/erythema. No obvious lesions to the scalpThere are several, relatively indistinct, mildly erythematous lesions to the chest. It is difficult to distinguish what is simply from her scratching. There are extensive scratch hodge on her back. In the areas where she cannot reach there is occasional fine, mildly erythematous rash which is relatively indistinct. It is difficult to say whether there are any linear, vaguely petechial areas although again I think these are scratch hodge.There is limited rash in the right popliteal fossa.There are no obvious oral lesions with her dentures inShe is wheezing mildly.There is no edema Chronic pain Patient with chance g-standing chronic low back pain for which she has been on long-standing opioids as well as benzodiazepine. She continues to report pain unchanged. She is not currently using significant adjuvants aside from treatment of depression.She feels she'll be unable to function without current opioid-based treatment of her pain. She understands risks inherent in opioid treatment. chest pain- Patient is seen today primarily to address ongoing right-sided thoracic chest wall pain. Patient was seen several weeks ago and at that time had a three-week history of what sounded to be thoracic chest wall pain. She had a focal area of tenderness. Pain is worse with change in position or visualization of the right upper extremity in particular. There is currently no pleuritic component of it. She is not more short of breath or having other respiratory difficulties. It is not exertional and not worsened or ameliorated by exertion. Does not appear to be a GI component of it, namely no increase in reflux, eructation of the litesShe has not noted a rash. She is not having thoracic back pain that is new. She notes that when using the right approximately for bed mobility she tends to have the pain. When she rotates her thorax she often has the pain. The steroids given last time to address primarily COPD exacerbation did not necessarily help the pain very much.We discussed. Other issues.Depression: She suggests that she thought that the medication being provided by psychiatry was not effective. That having been said, she said she went for a walk this week, she said that the relationship with her son is more smooth. She indicated that she got out of bed and shower today. There were other small nuggets of positivity. She is still tearful. She is worried about housing situation although has not received any eviction notice suggestion that these would not be renewed. We discussed cognitive patterns a fair amount and the fact that there is evidence of things are somewhat improved. We discussed the possibility of shift the mindset to emphasize the positive i t is unclear if his medication or to life circumstances but she did appear marginally better.Oral pain:Patient with a history of leukoplakic oral lesion. More recently has had some ulceration under her lower plates. She is having quite a bit of pain and often is not wearing the lower plate. She is awaiting adjustment.Rash:The rash in the intergluteal cleft is apparently not improved significantly. She did not wish for me to look at it today. She said she really had the most recent cream I prescribed. Dermatology advised to have helped. She says is particularly bad when she perspires.ROS:Continued volitional weight lossSugars are generally well-controlled without additional episodes of overt hypoglycemiaOccasional headachesNo acute vision changeNo acute hearing issuesOral pain as aboveNo dysphasiaNo increased shortness of breath, is smokingNo current GI complaintsOngoing symptoms of presumed interstitial cystitisOngoing pain in her thumbs (I have told her that [facility] will not inject her hands).Mood is aforementionedPatient is driving.Examination:Well-developed, middle-aged woman in no distressVital signs and weight are notedShe is normocephalicPupils are reactive, sclerae anictericTympanic membranes are visualized bilaterally without appreciable change. Difficult to exclude some serous fluid on the left.Nares are patentPharynx is clearRoughly midline, mandibular gumline there is area of ulceration. There is less obvious, other areas of whitish discoloration more proximal to base of tongue.No cervical adenopathy, JVDLungs are diffusely diminished. There is no wheeze. There are occasional rhonchiHeart sounds regular with S1 and S2. No definitive murmur heardThere is relatively well-defined point tenderness of the right anterior chest wall, it is seemingly at roughly the midclavicular line. It is likely intercostal musculature is producing the pain. There is no obvious rash. Pain is increased with movement/rotation of thorax/movement of right arm. There is no obvious bony deformity.Abdomen is soft, nontender, examination limitedI did not see her rash todayShe has no clubbing, cyanosis or edema.There is no acute synovitis in hands. It is difficult for me to say if there is limitation range of motion of the CMC bilaterally.She is awake, alert and attentiveShe is cheerful at times although overall seemed less profoundly dysphoric and past times chest pain The patient pres ents with a complaint of chest pain. Chest pain- CPWheezeChantix1 /2ppdcreamDieticianGluco sePVVSPatient is seen today to address issue of chest pain however secondarily multiple other issues were discussed.Patient with multiple weeks of persistent right anterior chest wall pain. It is roughly at the fourth or fifth interspace on the right. The precipitating incident is unclear. Patient thinks it is because she left the window open and developed a cough. She is not currently coughing. The pain does occasionally radiate to the back however, pain is produced with tortion of the thorax. She is not short of breath. She is not having visceral pain. She is able to locate the specific pain generator with direct pressure over it with her finger. She is not had any recent falls or other traumatic injury that she recallsThe patient is noted to be wheezing. Again, she does not endorse any specific increase in COPD symptomatology currently. She is smoking approximately half a pack per day. She says she received the Chantix starter pack rather than continuation pack.She brings in limited handwritten log of her glucoses. Alysaler glucoses were somewhat low and I told her that either he decreased the insulin. I also told her that we sent glucose tabs to the pharmacy.I inquired regarding her intergluteal rash. She says that while there is no crack it is still bothersome.She continues to have multiple psychosocial stressors including the possibility of impending need to move. She continues to have chronic pain. She complains specifically of bilateral MCP pain. She declined corticosteroid injections offered by hand surgeon as she is phobic and would like to be put to sleep for them. She would like to see [facility] in hopes that they will do it as they apparently have in the past when they did a lumbar epidural steroid injection.ROS:Headaches at timesNo acute vision changeNo dysphagiaNo current abdominal complaintsChronic UC symptomsExam:Well-developed, well-nourished woman in no acute distressShe is dysphoric about the housing issueShe is normocephalicPupils reactive, sclerae are anictericMucous membranes are decently hydratedHeart sounds were regular with S1-S2.Lungs are slightly rhonchorous and she has bilateral wheeze. There is no tripoding. She is not distressed. There are no retractions. She is not physically tachypneic at restAbdomen is soft, nontender, limited examinationExtremities are without any synovitis, significant edema, clubbing or cyanosisShe is awake, alert, attentiveAs aforementioned, at times tearful when talking about housingAt the cephalad-most aspect of the intragluteal cleft there is a small patch. It is slightly erythematous it is scaling. There did not appear to be a slit as before.There is pint tenderness in the intercostal spoace, mid clavic line on right, likey approx 5th. No rash, no tenderness to Thoracic spine Additional details Patient is se en today primarily for follow-up of her depression. She was seen several weeks ago and was very depressed, rarely getting out of bed and the like. Her duloxetine was tapered in anticipation of her seeing psychiatry and a transition to another agent. She has been taking 60 mg. She is now consistently getting out of bed. She is left the house several times. She subjectively seems to feel that the mood is a bit better. She says that people at provides care to her have noticed it. Unclear if eating differently. Somewhat unclear if her sleep is different. She knows that she is going for sleep studies knifed.She says that both ears are still somewhat painful. She has nearly completed the eardrops previously given. She also has a small/recurrent area in the intergluteal cleft that is painful. It previously seemingly healed.ROS: Somewhat limited given meandering historyNot having any acute headachesVision unchangedNo dysphagiaNocturnal having chest painNot having any acute shortness of breath does have COPDNo current acute abdominal complaints, chronic interstitial cystitis issuesChronic low back pain/leg pain.Chronic pain and dysfunction of 1st CMC is bilaterally.Exam:Vital signs notedWeight is notedWell-developed, delays woman in no acute distressShe is normocephalicPupils are reactiveSclerae anictericFacial symmetry appears preservedMucous membranes are decently hydratedShe is edentulousThe left ear has an equivocal posterolateral left roughly 11 o'clock position. The right ear has areas of white appearing flakes at the 4 o'clock position. The tympanic membranes are not particularly inflamed.No obvious cervical adenopathyHeart sounds are regular with faint murmurLungs slightly rhonchorous but free of wheezing.Abdomen is soft and nontenderIxodes or without clubbing, cyanosis or appreciable edemaThere is no acute synovitis seems is her other joints of the handShe is awake, alert and attentiveThere is a roughly 1.5 cm midline linear splits immediately at the cephalad extent of the of the intergluteal cleft. There is minimal circumferential erythema. There is no exudate. depression pain See Annual Annual Very depressedFS GBFAppetiteStop chantixpatchear dropsaudiologistPatient was seen today for annual however, much of what would ideally be initiated an annual was not due to significant issues with mental health. She is depressed and the bulk of discussion was spent discussing this issue as well as her life in general. This is a pattern fairly common for her. Psychosocial stressors tend to predominate in discourseOf note, at one point she also discusses an increase in opioids and at times I'm uncertain if she is trying to paint and narrative to support this. She is often vague on details. She reports very significant conflict with her son but then back pedicles and does not want documentation. She insists that she is not physically at risk.She details significant difficulty getting out of bed most days. She attributes this to mood. Precisely why she is uncertain. She says she was gone for days without showering due to mood. She feels she needs to be encouraged by health days. She reports she is eating and lasts on average. Fingersticks are variable but not are low. Many are quite high. She attributes part of the depressive symptoms, breaking up with her boyfriend. She describes wanting to be left alone by her children although unclear if she is irritable due to depression or if interactions with her kids are causing her to feel more dysphoric. She is seeing a therapist but not a psychiatrist.She also details slight by her ex- towards the daughter and how that made her feel poorly. She says her smoking is quite variable. She says there are days that she does without smoking at all. Other times she is smoking more. She reports she still take the Chantix, I'm uncertain if this is accurate. She is not found it enormously helpful as best she can tell. Spoke fo some psych she saw in past, behind [facility] continues to have difficulty with her hands. There is yet another source of discontent. She has not come to occupational therapy for the past several weeks and we will discharge her. She remains reluctant to consider injection of her hand joints. She feels that she would need to be sedated as she has in the past for her lumbar epidural steroid injection. Later in the visit she mentioned that she would like to return to [facility] support for consideration of lumbar epidural steroid injection. Her estimated continues to be severe. It is low back pain. She also has pain in her hands. She asked about escalating opioids. I told her that I do not believe that there is any role for dose escalation in the context of her chronic pain. I told her that I don't think that the opioids will help her pain and that is more likely that we're medicating dysphoria although certainly she has pain.She continues to have some complaints of otalgia. She is having difficulty using her hearing aids, continue to wear properly. It is unclear if she does not know how to use them well, has difficulty manipulating them due to size or other factor. I do wonder if the nature of the hearing aids is actually causing her to have irritation in her ears.She does ask about the possibility of going to the gym and whether I can write a letter to the YSocial Hx-Smoking, suggests ETO periodically, does not quantify, ? marijuana useSon lives with her. Appreciable conflictROS:Reports it impossible to complete PHQ. She has by her report significant depression. She sleeps poorly. She tends to spend much of her day in bed. She is not actively suicidal.She reports some headache. She does not report spontaneous vision change. She does not report dysphagiaHer dentures are not feeling her optimally and she would like to return to the dentist. She is not having significant shortness of breath and her breathing currently is fair (we reviewed her pulmonary function tests showing severe COPD). She has had an area on the right anterior chest wall of spontaneous pain. She is very vague about the details, duration and the like. Unclear if there is a pleuritic component to it. There is nothing that clearly exacerbates it or ameliorates it.She does not detail significant GI disturbance. She has reported interstitial cystitis and awakens enumerable times by night and to a lesser extent by day. She does not have incontinence.With regard to her pain, she reports that the pain is predominantly low back. She doesn't describe radicular pain per say. She has some arthralgias. She currently has pain in both thumbs. Lesser extent in the wristExamination:Vital signs are notedWeight is noted (rather interesting given her self-report of not eating)She is normocephalicSclerae anicteric, pupils are reactiveThere is mild otitis externa both canals. This may well be related to the hearing aidsTympanic membranes are intact. She has denturesMucous membranes are moist. There is an area of irritation to the lower gum.There is no obvious cervical adenopathy, thyroid enlargementNo supraclavicular enlargementNo obvious axillary adenopathy. Breast exam was deferredThere is no point tenderness to the area in the right anterior chest wallAbdominal exam was limited but overall soft, nontender, nondistended free of obvious mass or fascial defectExtremities were without clubbing, cyanosis or edemaBilateral, well-healed surgical scars to both wrists. Difficult to comment on range of motion but overall intact. She feels she has difficulty with opposition of the thumbs.There is a healing abrasion to the right lower extremity and a more remote one to the left lower shorteningDorsalis pedis pulses are intactThere is no evidence of ischemia in the low extremitiesLight touch is intact, I did not have the opportunity to do a monofilament examination.She is awake, alert and attentiveFacial symmetry is preserved, motoric strength is intact in all extremitiesSpeech is fluentShe is oriented. She is tearful. Interestingly, later in the day when she was leaving her affect shifted dramatically and she was engaged and no longer overtly dysphoric. to adress oxygen sup plement use Patient has been relatively disengaged from care is in today to discuss primarily issue of oxygen. Patient had apparently been on oxygen at some point. In addition, she reports she had a sleep study at [facility] well prior to enrollment and was found not to have obstructive sleep apnea. Precisely why she had nocturnal oxygen is unclear however, she is not using it and it was discontinued in 2014 at her request. As best I can tell, she was seen by visiting nurse and apparently found to have low oxygen saturation although again details are not clear. This is either early in the morning or while she was still in bed.Patient does not currently have oxygen or home. She continues to smoke voluminously. She is asked for refill of her Chantix although regrettably really does not seem able to quit at the moment. In addition to this we discussed myriad other issues. Of note she is not hypoxic in the office. She in general is not hypoxic during clinic visits. She describes more by symptoms of nocturnal panic rather than dyspnea per se. She does not describe orthopnea. Her sleep is very disrupted although unclear to what degree this is due to her nocturia related to her interstitial cystitis. I did make a case to her that her depression may influence sleep and vice versa. Additionally, I told her that if sleep apnea is present (the sleep study was several years ago and she has gained weight) it may exclude her from reaching deeper levels of sleep and therefore make her more susceptible to be awakened by her bladder.Medication complaint surrounded her hands. Patient had bilateral carpal tunnel surgery. Around the time of her surgery she has had a fall and believes that since that time she's had bilateral hand pain. She was seen by hand surgery several times, most recently 09/08. 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 They offered her injections however it was her impression that the injection was into the bone and would be fairly painful and therefore she decided against it. I explained that it was not until bone but rather joint space. She is impressible agreeable to working with occupational therapy although had been off of his upper extremities in the past and has not been able to carry through on this. She vaguely eludes to pain medication not being adequate to control her pain and past dosing. I did not specifically address.She reports she has significant debility related to the hands and would like an increase in home health lvn services. She reports she currently is 3 hours per week. She would like to double this however, would only accept her current worker. She reports difficulty with laundry, with all cleaning tasks with cooking and other such tasks. She seems to be able to engage in self-care although I believe requires assistance with her insulin.She reports some otalgia on the right. She says she got hearing aids but is using them sporadically as she has difficulty with dexterity related to her hand pain. With regard to her depression, she has not seen her counselor in many months. She did find it helpful when she did work with her. She says she will call her () to reestablish care.She is tearful at times through the conversation.I completed her paperwork for a handicapped sticker. Of note, upon review of the PFTs most of her obstructive defect with actually reversible. We discussed asthma versus COPD and her misconceptions about the diagnosis of COPD. I did tell her that the best opportunity to avoid permanent, fixed, reversible defect would be to stop smoking.She mentions a number of psychosocial stressors, as is usually case for her.We will unclear if she will be able to follow through with this, I did encourage her to come in on a more regular basis, engage in care.Her diabetes in general is poorly controlled. She is not adherent with diet. It is unclear he precisely how during she is with insulin. She had VNA assistance due to physical limitations and injecting her insulin.ROS: Somewhat limited given the multiplicity of diverting complaintsDoes not specifically mention headacheVision is okayHearing, has hearing aids, see aboveReports occasional dysphagia, seemingly to certain pills specificallyDoes not excessively mentioned appreciable GI complaintsHas urinary frequency related to interstitial cystitisNo current chest pain syndromeChronic right lower shortening the lateral painBilateral CMC painChronic low back painDepression and anxiety present. Reports she often is at home, so reluctant to get out of bed, seemingly anhedonic.Exam:Well-developed, middle-aged woman who looks younger than stated age, is in no acute distressVital signs are notedShe is normocephalicPupils are reactive, sclerae anictericThere is otitis externa on the right. The left is rather hyperemic although does not appear to be irritated or inflamedPatient has dentures, there are no oropharyngeal lesionsRather thick neck, no discrete adenopathy, difficult to comment on thyroid enlargement. no Obvious cervical adenopathy or thyroid enlargementHeart somewhat distant but regularLungs were diffusely coarse. Breath sounds are perhaps slightly decreased. There is no wheeze.Abdomen was soft and grossly nontenderExtremities are without clubbing, cyanosis or edemaShe has bilateral, well-healed scars from carpal tunnel release. I don't specifically see evidence of synovitis at the CMC's but she has some pain with movement.Hand grasp is fairShe is wearing bilateral splints apparently provided by hand surgery Semi Annual Patient is seen today for semiannual visit. She has had no interval hospitalizations. She had bilateral carpal tunnel surgery. Had at least one fall in the interval. He continues to have significant dysfunction of the hand with the left CMC being the major culprit. She is to have difficulty administering insulin independently and still has VNA.As regrettably is often the case, she is burdened with multiple psychosocial stressors. Her son is currently out of fci living with her. She broke up with her significant other 20 odd years. Her daughter remains medically compromised.She continues to smoke fairly avidly although says that she grew nauseous when she went to have a cigarette this morning. She is taking the Chantix. It is unclear if his cut back at all. She details a fair amount of respiratory symptomatology, namely exertional fatigue. She has noticed increasing coarseness in her breath in the past several days. She is not coughing up anything particular. She sounded to be wheezing in the absence of a stethoscope however on direct auscultation is not.She reports that yesterday while she was standing outside seen episode when she felt somewhat heavy. Specifically she mentions it feels like there is pressure on her shoulders. She did not have diaphoresis or chest pain per se. It resolved spontaneously. She was not exerting herself at the time. No apparent focal weaknesses best I can tell.She does report increasing depressive symptoms overall. She is not spoken to her therapist and was way for a while. She has a psychosocial stressors as aforementioned. She is not checking her sugars very regularly. She went without insulin for a day or 2 having run out. She has not been getting out of bed much due to sadness/depression. She has no specific thoughts of self-harm onto that nature. She is eating. She infected gained weight.Her hearing is apparently not working and she will be dropping them off at [facility] in early June. Her dentures do not fit well and she will need to see dental.Her chronic pain is largely unchanged. It is predominantly in the lower back. She does detail some discomfort/catch when she raises her right arm more so than her left. As before, she continues to feel that current pain medication is necessary for her to function. She appears to be tolerating the rather discomforting combination of opioids and benzodiazepines. In addition, she is on gabapentin. She suggested some discomfort in the shoulder. It may have began after one of her recent falls. She is not anxious to work with rehabilitation.She on questioning does continue to endorse some epigastric discomfort. It is very hard for her to describe it. It is not positional. It is fairly consistent. She does recall having had upper endoscopy. She doesn't describe GERD symptoms per se. She is not having any rectal bleeding. The pain does not appear to change with eating or without eating. She is not on any acid suppressive therapy.I asked her about any facial asymmetry as well as is minimal left nasolabial flattening. She did that her friend has indicated that the right eye is minimally medially deviated. I did not see it and I do not note any weakness in extraocular movement testing. She has not been to the eye doctor for approximately a year.Patient is seen today for semiannual visit. She has had no interval hospitalizations. She had bilateral carpal tunnel surgery. Had at least one fall in the interval. He continues to have significant dysfunction of the hand with the left CMC being the major culprit. She is to have difficulty administering insulin independently and still has VNA.As regrettably is often the case, she is burdened with multiple psychosocial stressors. Her son is currently out of fci living with her. She broke up with her significant other 20 odd years. Her daughter remains medically compromised.She continues to smoke fairly avidly although says that she grew nauseous when she went to have a cigarette this morning. She is taking the Chantix. It is unclear if his cut back at all. She details a fair amount of respiratory symptomatology, namely exertional fatigue. She has noticed increasing coarseness in her breath in the past several days. She is not coughing up anything particular. She sounded to be wheezing in the absence of a stethoscope however on direct auscultation is not.She reports that yesterday while she was standing outside seen episode when she felt somewhat heavy. Specifically she mentions it feels like there is pressure on her shoulders. She did not have diaphoresis or chest pain per se. It resolved spontaneously. She was not exerting herself at the time. No apparent focal weaknesses best I can tell.She does report increasing depressive symptoms overall. She is not spoken to her therapist and was way for a while. She has a psychosocial stressors as aforementioned. She is not checking her sugars very regularly. She went without insulin for a day or 2 having run out. She has not been getting out of bed much due to sadness/depression. She has no specific thoughts of self-harm onto that nature. She is eating. She infected gained weight.Her hearing is apparently not working and she will be dropping them off at [facility] in early June. Her dentures do not fit well and she will need to see dental.Her chronic pain is largely unchanged. It is predominantly in the lower back. She does detail some discomfort/catch when she raises her right arm more so than her left. As before, she continues to feel that current pain medication is necessary for her to function. She appears to be tolerating the rather discomforting combination of opioids and benzodiazepines. In addition, she is on gabapentin. She suggested some discomfort in the shoulder. It may have began after one of her recent falls. She is not anxious to work with rehabilitation.She on questioning does continue to endorse some epigastric discomfort. It is very hard for her to describe it. It is not positional. It is fairly consistent. She does recall having had upper endoscopy. She doesn't describe GERD symptoms per se. She is not having any rectal bleeding. The pain does not appear to change with eating or without eating. She is not on any acid suppressive therapy.I asked her about any facial asymmetry as well as is minimal left nasolabial flattening. She did that her friend has indicated that the right eye is minimally medially deviated. I did not see it and I do not note any weakness in extraocular movement testing. She has not been to the eye doctor for approximately a year.Does not feel that her interstitial cystitis symptoms have really changed very much with the recent addition of mirabegron pain See above Follow Up of carpel tunnel surgery Patient is seen today for relatively brief follow-up of her wrists issues. She was seen several weeks ago. She was subsequently seen by the hand surgeon. While I have not reviewed the primary report, she is generally fairly reliable historian regarding such issues. She was told that all is well. The inflammation at the left wrist incision site has largely abated and closed. There was what appeared to be a stitch protruding. She now has more tenderness at the right incision site. Globally, she is having far more difficulty with her left wrist and hand after sustaining a fall antedating surgery. She was evaluated by fluoroscopy at the hand surgeon and not felt to have a fracture.She continues to smoke. She went on to describe the multiple stressors in her life. Her breathing is reasonably stable. I did not explicitly asked regarding the fingersticks. She continues to receive VNA assistance with insulin in the interim due to her inability to manipulate with her hand. She has grown very close to the nurses. She no longer has a health aides due to apparent fraud, she does not want them.Her son is now home from [facility]. She does not have any other specific physical complaints at this time. She does have the chronic right lateral leg discomfort.She reports the mycolog is helping her rashROS:Sleep mediocreOccasional headachesNo acute vision changesNo dysphagiaEating wellNo chest painChronic mild dyspnea on likely due to her lung disease, actively smokingNo current abdominal complaintsChronic interstitial cystitisChronic low back painPhysical examination:Vital signs are notedWell-developed, overweight woman in no acute distressShe is normocephalicShe has denturesNo obvious JVDHeart sounds to be regular. I don't disagree recall murmurLungs have coarse breath sounds bilaterally. There is very minimal to no wheeze.Abdomen is soft, nontender not examined extensivelyExtremities are without clubbing or cyanosis. There is actually no pitting lower extremity edema. She has a tender area on the right leg was present for years. There are no specific skin findings there or palpable abnormalitiesShe has bilateral healing surgical sites from her carpal tunnel release. The right is somewhat erythematous on the immediate suture line but not circumferentially. It is not hot or otherwise exhibiting evidence of infection. The same holds the left. The suture is no longer visible. Range of motion in the left wrist/left first digit is limited by pain multiple complaint Please see no te from yesterday. Patient is seen today for 2 primary issues and some secondary issues.Wrist pain: Patient is a number of weeks out from bilateral carpal tunnel surgery. She was seen in follow-up most recently roughly 2 weeks ago. At that time she complained of left wrist pain and underwent a fluoroscopic evaluation which did not demonstrate a fracture according to the interpreting medical staff. Patient was given a brace and told she likely had a sprain related to previous fall. The right wrist is not bothersome. The left wrist/pacer first thumb and the like continue to be significantly painful with limited motion. In addition, there is a small area that appears to have a stitch protruding through. She reports occasional discharge.She reported to OT that she was having significant nocturia. She is often going every hour. She does not feel that this is different from her baseline IC symptoms. She does have dysuria. She does find it difficult to walk with her her house to the bathroom in the middle the night. She speaks of potentially using a camping toilet. She does not have hematuria. She is no longer using mybetriq, and would like to try it again.She is smoking, by her report in moderation. She stopped the Chantix. She would like to resume its new.She detailed her psychosocial stressors including the incarceration of her son, loss of her 3 grandchildren, her daughter's impending neck surgery. Potentially breaking up with her boyfriendROS:Moderate appetiteFrequent sleep disturbanceNo dizzinessNo acute headachesVision unchangedHaving issues with the hearing aid she just got, planning to see defenderNo dysphagiaNo current chest painBreathing quite good of lateNo appreciable GI complaintsChronic low back painPhysical examination:Vital signs her weight are notedWell-developed, middle-aged woman in no distressShe is normocephalicPupils are reactiveSclerae are anictericMucous membranes decently hydratedShe has denturesNo obvious cervical adenopathyHeart sounds to be regular. Can't exclude faint murmurLungs were surprisingly clear bilaterally.Abdomensoft, nontenderPost void residual 0, she was able to void likely less than 5 mL's although she had already urinatedExtremities are free of clubbing, cyanosis or appreciable edema. There is a small raised area on the right lateral leg which appears most likely to be a small varicosity although could not exclude soft tissue fullness. It is smooth and non-concerning. She has chronic, subtle hyperesthesia of the right lateral leg.The scar to the right wrist is healing reasonably well. She has excellent range of motion in the wrist.On the left there is a tiny open area at the distal suture line, seemingly around a suture that is poking through the skin. I was not able to express any purulence. There is mild erythema about the margin of the wound but not out of proportion to the other side. There is very minimal tenderness per say. There is significant pain in range of motion of the wrist as well as the base of the thumb. She seems neurovascularly intact. There is no obvious inflammation.Examination of buttock shows a patch of smooth, erythematous, well demarcates skin at superiro edge of gluteal cleft. post fall eval 61 year old jacinto rocha reports a fall sustained last evening due to catching her foot on excess bed linens and recent rearrangement of bedroom furniture. Unclear if ppt attempted to brace herself with her arms when falling, but reports discomfort of the right upper arm. Describes a catching and pulling sensation with variable movements. Also relays a history of a hairline fracture of the right humerus a few years ago after an accident. Annual 61 year old femchristian le her for her Annual evaluation and review of chronic conditions. Danae enrolled [facility] program in November [facility] 2014. [facility] help from family/friends.She has not had any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 that her opioids would not be ready in time. She is due for refill seemingly on the . We discussed use of baclofen, which she finds ineffective and is using only once a day. We discussed her opioids as appreciable length. I explained to her that there is little to suggest that use of long-term opioids (she tells me she has been on them for 12 years) are particularly helpful in chronic pain. I told her fact there can sometimes be opioid-induced hyperalgesia.She reports that use of current antidepressant has been relatively ineffective. She continues to take benzodiazepine. She tells me that she is no longer taking the anticholinergic prescribed by urology as it causes her to have more difficulty urinating and discomfort. She is not taking other agent they prescribed as it requires 3 times a day dosing on empty stomach and she finds that she cannot generally get in the midday dose. She has not noticed appreciable efficacy so far either.We had a long discussion regarding treatment of chronic pain. I suggested that duloxetine could potentially be substituted for her current antidepressant and may be helpful for her chronic pain. I provided her with a written printout regarding duloxetine.She also reported chronic right axillary discomfort. present for yers. Nothing palpable. No explanation in past. Worries as there is familial hx breast cancer. Recent mammogram, as well as past breast MR Says she is eating better, thrilled she has lost wt. Reports smoking far less.Also notes, off hand, why are my hot flashes back . Reports that when this occures she checsk sugar, usually OK. Did have a low last week. Reports sweats of hewr face and head. Happens all times of day/night. Not seemignly drenching. No other clear associated sx mouth biopsy site pain Right ear c/o Pt asked for ENT referral. Please see previous notes. By her report, loingstanding R ear process. Was seen by ENt many years ago, supposedly attempted drainage. I tried nasal steroids when seen, still sense of right fullness and decreased hearing Follow Up of urology appt Saw , consult noted. Meds in template. She has seen no results from meds so far. Symptoms not very bothersom by day, are so by night, as beforeSleeping poorly. Mostloy due to IC, aslo worried about son who has malignancyHas been havinmg mild R hemicranial cepahlgia, in fronto/temporal area.Does n ot feel like migraines in past. Resolves with pain meds. No vision change, no nuchal rigidity. Does have a bit of aural fullness (She reports hx of r ear compromise, fluid and attempt by ENT to drain ) non specific jaw pain, not claudication. No trismus.is smoking ob average 4-5cigs/d. She feels that the chantix has helped her not have any cravings, seems to be mnore behavioral (post prandial, with upset) Follow Up of smoking cessation Follow Up of smoking cessation c utting down. she is going up to one full pill of the varencycline now and anticipates stopping smoking soon as she feels nauseus and has less desire. she only had 2 cigs yesterday Follow Up of pain only took 2 of the oxycodone IR pills. is on the 30 mg oxycontin bid and seems to feel that that is working well. she is moving her bowels ok Follow Up of depression The shyla ent presents with depressed mood, diminished interest or pleasure, fatigue and feelings of guilt but denies difficulty concentrating, difficulty falling asleep, loss of appetite or restlessness. Additional information: taking her meds as prescribed. still having trouble sleeping due to frequent urination. Folow abnormal dental exam I not e the dental exam that found an white oral patch with recommendation for biopsy. 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 WIll place order to d/c [employer] Follow Up of pain has considered my suggestion to increase oxycontin and stop oxy IR. she is afraid that she won't be able to get going in the morning but I educated her on the dosage adjustment from 20 to 30 oxycontin that she would have a higher level in her system when waking up in the morning. she agrees to a trial as long as she has some emergency supply of oxyIR in the morning during the trial Follow Up of urine frequency bro ught in a 3 day overnight voiding diary: unfortunately it can't be located at the time of this visit. she describes voiding 6 times every night with less than 2 ounces of urine each void. I asked her to do a 2 day during the day diary Follow Up of smoking asks to use chantix. she used it before succcessfully. she understands it can lead to depression and suicide thoughts but states she tolerated it. she wants to quit smoking urine frequency no records avail able.\u/a yesterday shows sq epi and 0-5 wbc and mixed growth depression This is a follow up visit. The symptoms occur day. Related symptoms are fairly controlled. There is improvement of initial symptoms. The patient reports functioning as somewhat difficult. The patient presents with fatigue. Additional information: feeling a bit better but still fatigued overall. her dtr left for [place] this past week. she remains with impaired sleep. oxygen use has not used oxy gen more than once or twice a month01/07/13 PsG showed overnight desaturation down to 85% on a few occaisions. she never was trialed on cpap pain in low back and leg dr. noa wang records reviewed (127 pages):on monthly oxycontin and percocetpt has seen a psychiatrist in the pastpain is 8/10 over past couple of weeks, constant. she likes the medicinal plant picker she gets from oxyIR in the morning Chronic conditions Associated sy mptoms include fatigue. to discuss next visit Sharmin dotson from oxy IR to oxy ERreview receipt of old recordspt is very concerned about her CT of 3 years ago related to left axillary discomfort post enrollment Patient is seen for Post enrollment assessment.From her intial evaluation:59 year old woman presents for possible enrollment into [facility]. she states she is disabled due to interstitial cystitis since 1995, back pain and sciatica x 3 years, and depression. She lives alone in senior housing; has a son with brain cancer and a daughter who is in good health. due to the interstitial cystitis, she is up every hour at night and so, if chronically tired. However, during the day, she voids less frequently. with her back pain, she has trouble getting out of bed in the morning due to pain. So, she takes an oxy IR before getting out of bed along with her bid oxycontin. she has been or opiods x 10 years. she was inbetween doctor in september and didn't have opioids and felt much worse with more functional impairment, she states. she is very pleased with the results of an epidural steroid injection into the low back done 2 weeks ago. it took away some of the sharp pains.regarding her depression, she is always tired from not sleeping well (due to voiding?) and worrying about her son. she often spends the whole day in bed. she denies SI or psych hospitalizations. she never was on more than the 75 mg of venlafexine. she thinks having a schedule to come [facility] a [facility] would be a great motivator for her to get out of the house.upon preenrollment, records are not available. I discussed how medical care at is provided. I informed her that we require an opioid agreement and that we would look to use only long acting opioid if we continue them. she states she is aware that they don't cure her condition. from today:Pt states she has a machine long goods helper boyfried who works out of the area during the week but with whom she lives with on the weekends. she is already [facility]. she continues to smoke. she tells me that she is taking 2 oxycodone IR daily in addition to the 2 oxycontin ER/day; I had written 2 weeks ago that she was only taking 2 oxycodone IR/month. she also states that she is taking 2 dizapam/day and not the 1 that I had written from my last interview. and she states she has not taken the gabapentin since last september and doesn't think they ever helped. The State NUCLEAR EQUIPMENT RESEARCH ENGINEER is reviewed today: she has consistently used one pharmacy and had a long time prescriber until her recent change to a new practice in October as she had stated. the three controlled substances are listed as she describes them being used. she states that she has signed an opiod agreemtn previously Pre-enrollment assessment 59 yea r old woman presents for possible enrollment into . she states she is disabled due to interstitial cystitis since 1995, back pain and sciatica x 3 years, and depression. She lives alone in senior housing; has a son with brain cancer and a daughter who is in good health. due to the interstitial cystitis, she is up every hour at night and so, if chronically tired. However, during the day, she voids less frequently. with her back pain, she has trouble getting out of bed in the morning due to pain. So, she takes an oxy IR before getting out of bed along with her bid oxycontin. she has been or opiods x 10 years. she was inbetween doctor in september and didn't have opioids and felt much worse with more functional impairment, she states. she is very pleased with the results of an epidural steroid injection into the low back done 2 weeks ago. it took away some of the sharp pains.regarding her depression, she is always tired from not sleeping well (due to voiding?) and worrying about her son. she often spends the whole day in bed. she denies SI or psych hospitalizations. she never was on more than the 75 mg of venlafexine. she thinks having a schedule to come [facility] a week would be a great motivator for her to get out of the house.upon preenrollment, records are not available. I discussed how medical care at [facility] is provided. I informed her that we require an opioid agreement and that we would look to use only long acting opioid if we continue them. she states she is aware that they don't cure her condition. Instructions Date Instruction Additional Infor holden Patient with diabeti c peripheral vascular diseaseAs evidenced by physical exam showing BL LE dry, shiny, hairless with decreased pedal pulsesRisk factor optimizationWill continue to monitor Related to Type 2 diabetes mellitus with diabetic peripheral angiopathy without gangrene Patient with Type 2 DM and [id number] 9.8 at last visit. Will recheck todayContinue MetforminPt has been more compliant and her sugars have been under better control recentlyBS this morning was 180 as per ptCounseled about diet extensively including cutting down on sugars and carbohydratesWill continue to monitor Related to Type 2 diabetes mellitus with hyperglycemia Patient with cocaine abuse, in remissionLast known use and positive urine in 2019Continues to deny any recent usageWill defer urine test until next visitWill continue to monitor Related to Cocaine abuse, in remission Patient with mixed hyperlipidemiaCurrently stableContinue statinMonitor dietContinue to monitor Related to Mixed hyperlipidemia Patient with chronic use of opioidsPt has been taking high doses of opioids to treat her painsNo signs of intoxication or withdrawal at this timeDiscussed other modalities of pain control such as steroid injections but pt is hesitantWill defer urine testing at this visitWill continue to monitor closely Related to Opioid use, unspecified, uncomplicated Patient with depress ion. Currently stablePHQ is 8 today, mild depressionDenies any SI, HI, or hallucinations todayContinue current medicationWill also refer to counselingWill continue to monitor closely Related to Major depressive disorder, recurrent, moderate Patient with diabeti c CKDCurrently stableGFR 91 Avoid nephrotoxic drugsOptimal control of DMEncourage ample hydrationWill continue to monitor Related to Chronic kidney disease, stage 2 (mild) Patient with multipl e lung nodules CT Chest in 04/2020: 2 nodules, one 3 mm the other 4 mm and these are unchanged, presumed benign and no follow-up was recommended on the basis of the nodulesDiscussed with the pt but she does not want to follow up at this time Related to Other nonspecific abnormal finding of lung field Patient was seen for her Semi-Annual examNo acute complaints or concerns todayChronic issues are stableMOLST on file-DNR, DNIHCP on file- not invokedWill continue to provide support and care Related to Encounter for general adult medical examination without abnormal findings Patient with Type 2 DMContinue current management. Will defer increasing Lantus for nowDiscussed compliance with medication regimenWill continue to monitor Related to FDC (current) use of insulin Patient with Type 2 DM and polyneuropathyContinue metforminContinue LantusNo skin concerns on bharath feet. Patient does experience limited sensation with monofiliment exam previously. Pt does daily feet checksWill continue to monitor Related to Type 2 diabetes mellitus with diabetic polyneuropathy Patient with general ized anxiety disorderCurrently stableGAD is 5 today, mild anxietyContinue Effexor and BusparContinue diazepamWill continue to monitor Related to Generalized anxiety disorder Patient with Type 2 DM and CKDDM remains uncontrolled due to noncomplianceCKD is stableWill continue to monitor Related to Type 2 diabetes mellitus with diabetic chronic kidney disease Patient with Type 2 DM and diabetic cataractCataracts in both eyesNo retinopathy notedFollows up annually with OphthalmologyManagement as per Ophthalmology Related to Type 2 diabetes mellitus with diabetic cataract Patient with COPD wi th chronic cough and occasional mucousDiagnosis confirmed by previous PFTs and chest CT in 08/2012Continues to smoke periodicallyNot O2 dependentAlbuterol as neededWill continue to monitor Related to Chronic obstructive pulmonary disease, unspecified Patient with known l umbar spinal stenosisS/P decompression lumbar laminectomyContinues to be symptomatic Follows up with Orthopedics as neededWill continue to monitor Related to Spinal stenosis, lumbar region without neurogenic claudication Patient with chronic hip pain due to sacroiliitisPreviously seen by Pain Clinic who recommended a steroid injection but pt is hesitantPain controlWill continue to monitor Related to Sacroiliitis, not elsewhere classified Patient with coronar y artery calcificationAs seen on the Echocardiogram performed in 05/2019Mild atherosclerosis on chest CT in 04/2020 as wellRisk factors optimizationContinue statinWill continue to monitor Related to Atherosclerotic heart disease of [place] coronary artery without angina pectoris Patient with aortic atherosclerosisAs seen on chest CT in 04/2020Risk factors optimizationContinue statinWill continue to monitor Related to Atherosclerosis of aorta Patient with Type 2 DM and [id number] 9.8Continue MetforminTemporarily increasing Lantus to 32 units for the next 5 days while the pt is taking prednisoneCounseled about compliance with medication regimenAlso counseled about diet extensively including cutting down on sugars and carbohydratesWill reevaluate after the steroids as she may possibly require a permanent increase in Lantus dose Related to Type 2 diabetes mellitus with hyperglycemia, with long-term current use of insulin Patient with Type 2 DM and [id number] 9.8Continue MetforminTemporarily increasing Lantus to 32 units for the next 5 days while the pt is taking prednisoneCounseled about compliance with medication regimenAlso counseled about diet extensively including cutting down on sugars and carbohydratesWill reevaluate after the steroids as she may possibly require a permanent increase in Lantus dose Related to long term care pharmacist (current) use of insulin Patient with chest/r ib painSymptoms have been ongoing for a few daysSimilar to previous episode of costochondritisNo relief from NSAIDsWill do a short burst of prednisoneWill continue to monitor Related to Costochondritis Patient with arthrit is of CMC joint of right thumbShe had right first carpometacarpal arthroplasty with flexor carpi radialis tendon transfer surgeryStarting therapy next weekPain is well controlledWill continue to monitor Related to Arthritis of carpometacarpal (CMC) joint of right thumb Patient with chest/r ib painSymptoms have been ongoing for a few daysSimilar to previous episode of costochondritisNo relief from NSAIDsWill do a short burst of prednisoneWill continue to monitor Related to Costochondritis Patient with multipl e lung nodules CT Chest in 04/2020: 2 nodules, one 3 mm the other 4 mm and these are unchanged, presumed benign and no follow-up was recommended on the basis of the nodulesDiscussed with the pt but she does not want to follow up at this time Related to Multiple lung nodules Patient with COPD wi th chronic cough and occasional mucousDiagnosis confirmed by previous PFTs and chest CT in 08/2012Continues to smoke periodicallyNot O2 dependentAlbuterol as neededWill continue to monitor Related to Chronic obstructive pulmonary disease, unspecified COPD type Patient with chronic hip pain due to sacroiliitisPreviously seen by Pain Clinic who recommended a steroid injection but pt is hesitantPain controlWill continue to monitor Related to Sacroiliitis Patient with Type 2 DMContinue current management. Will defer increasing Lantus for nowDiscussed compliance with medication regimenWill continue to monitor Related to FDC current use of insulin Patient with diabeti c peripheral vascular diseaseAs evidenced by physical exam showing BL LE dry, shiny, hairless with decreased pedal pulsesRisk factor optimizationWill continue to monitor Related to Diabetic peripheral vascular disease Patient with diabeti c CKDCurrently stableGFR 91 Avoid nephrotoxic drugsOptimal control of DMEncourage ample hydrationWill continue to monitor Related to Chronic renal disease, stage II Patient with Type 2 DM and CKDDM remains uncontrolled due to noncomplianceCKD is stableWill continue to monitor Related to Type 2 diabetes mellitus with diabetic chronic kidney disease, unspecified CKD stage, unspecified whether custodial insulin use Patient with Type 2 DM and [id number] 9.8Continue MetforminPt remains noncompliant with her insulin so will defer increasing Lantus dose at this timeCounseled about compliance with medication regimenAlso counseled about diet extensively including cutting down on sugars and carbohydratesWill continue to monitor Related to Type 2 diabetes mellitus with hyperglycemia, unspecified whether custodial insulin use Patient with Type 2 DM and polyneuropathyContinue metforminContinue LantusNo skin concerns on bharath feet. Patient does experience limited sensation with monofiliment exam previously. Pt does daily feet checksWill continue to monitor Related to Type 2 diabetes mellitus with diabetic polyneuropathy, unspecified whether custodial insulin use Patient with Type 2 DM and diabetic cataractCataracts in both eyesNo retinopathy notedFollows up annually with OphthalmologyManagement as per Ophthalmology Related to Type 2 diabetes mellitus with diabetic cataract, unspecified whether machine long goods helper insulin use Patient with mixed hyperlipidemiaCurrently stableContinue statinMonitor dietContinue to monitor Related to Mixed hyperlipidemia Patient with aortic atherosclerosisAs seen on chest CT in 04/2020Risk factors optimizationContinue statinWill continue to monitor Related to Aortic atherosclerosis Patient with coronar y artery calcificationAs seen on the Echocardiogram performed in 05/2019Mild atherosclerosis on chest CT in 04/2020 as wellRisk factors optimizationContinue statinWill continue to monitor Related to Coronary artery calcification Patient with chronic use of opioidsPt has been taking high doses of opioids to treat her painsNo signs of intoxication or withdrawal at this timeDiscussed other modalities of pain control such as steroid injections but pt is hesitantWill defer urine testing at this visitWill continue to monitor closely Related to Chronic, continuous use of opioids Patient with cocaine abuse, in remissionLast known use and positive urine in 2019Continues to deny any recent usageWill defer urine test until next visitWill continue to monitor Related to Cocaine abuse in remission Patient with depress ion. Currently stablePHQ is 8 today, mild depressionDenies any SI, HI, or hallucinations todayContinue current medicationWill also refer to counselingWill continue to monitor closely Related to Major depressive disorder, recurrent, moderate Patient with general ized anxiety disorderCurrently stableGAD is 5 today, mild anxietyContinue Effexor and BusparContinue diazepamWill continue to monitor Related to Generalized anxiety disorder Patient with known l umbar spinal stenosisS/P decompression lumbar laminectomyContinues to be symptomatic Follows up with Orthopedics as neededWill continue to monitor Related to Spinal stenosis of lumbar region, unspecified whether neurogenic claudication present Patient was seen for her Semi-Annual examNo acute complaints or concerns todayChronic issues are stableMOLST on file-DNR, DNIHCP on file- not invokedWill continue to provide support and care Related to Encounter for general adult medical examination without abnormal findings Patient with chronic use of opioidsPt has been taking high doses of opioids to treat her painsNo signs of intoxication or withdrawal at this timeDiscussed other modalities of pain control such as steroid injections but pt is hesitantWill continue to monitor closely Related to Chronic, continuous use of opioids Patient with chronic hip pain due to sacroiliitisPreviously seen by Pain Clinic who recommended a steroid injection but pt is hesitantPain controlWill continue to monitor Related to Sacroiliitis Patient with depress ion. Currently stablePHQ-10 todayDenies any SI, HI, or hallucinations todayContinue current medicationWill also refer to counselingWishoshana continue to monitor closely Related to Major depressive disorder, recurrent, moderate Pt with complaints o f new onset hot flashes and flushingUnclear as to the exact etiologyDiscussed with pt that it is unlikely to be due to menopause at this time but will still check estrogen levels and will start replacement therapy if warrantedWill also check CBC and TSH to rule out any organic causesAdvised to avoid any spicy foods at this timeI also discussed at length that these symptoms could be possibly due to worsening anxiety and depressionWill follow up with lab results Related to Hot flashes Patient with Type 2 DM and hyperglycemiaFBS 386 todayWill increase Lantus to 25 units dailyAlso counseled about diet extensively including cutting down on sugars and carbohydratesWill continue to monitor Related to Type 2 diabetes mellitus with hyperglycemia, with long-term current use of insulin Pt with right wrist pain that is chronic but has flared up recently over the last few monthsShe reported she had a similar problem w/ her left hand.Left wrist had carpel tunnel release in 07/2021. Left CMC arthroplasty w/ flexor carpi radialis tendon transfer. She believes this was with Dr. Lance, a surgeon at [facility]. She states her left wrist had remarkably improved after surgery. Plan: Follow up with [facility] (order in place) Related to Right wrist pain 06/2024 A1C: 9.0Bloo d sugars remained significantly elevated at homeContinue metforminIncrease Lantus to 25 units dailyNo skin concerns on bharath feet. Patient does experience limited sensation w/ monofiliment exam previously. Pt does daily feet checks. Related to Type 2 diabetes mellitus with diabetic polyneuropathy, with long-term current use of insulin 06/2024 A1C: 9.0Bloo d sugars remained significantly elevated at homeContinue metforminIncrease Lantus to 25 units dailyNo skin concerns on bharath feet. Patient does experience limited sensation w/ monofiliment exam previously. Pt does daily feet checks. Related to long term care pharmacist (current) use of insulin Patient with depress ion. Currently stablePHQ-10 todayContinue current medicationWill also refer to counselingWill continue to monitor closely Related to Major depressive disorder,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
[2025-07-27] VITALS (8 sets, daily range): BP systolic 93–141; BP diastolic 57–84; PULSE 73–90; RESP 18–20; TEMP 36.3–36.9; O2SAT 95–97; BMI 25.9
--- NOTE | ~2025-07-27 | CT_ITS ---
CLINICAL HISTORY: fall CT head without contrast Comparison: None provided Findings: There is age-appropriate atrophy. The size and shape of the ventricular system is within normal limits for this degree of atrophy. Mild areas of low-attenuation are seen within the periventricular and deep white matter. Hammonds-white differentiation is well preserved. No midline shift or mass effect. No intracranial hemorrhage. No calvarial fractures. IMPRESSION: 1. No acute intracranial findings. This document has been electronically signed by: Tim Anderson MD on 07/27/2025 15:52:47
--- NOTE | ~2025-07-27 | XR_ITS ---
CLINICAL HISTORY: fall low back pain 3 views lumbar spine Comparison: CR - XR THORACIC SPINE 3V - 07/27/25 14:10 EDT Findings: Mild convex right thoracolumbar curvature. Alignment is anatomic on the lateral view. Age-indeterminate height loss is seen at the superior endplate of the L1 vertebral body with mild height loss of along both the superior and inferior endplates of the L2 vertebral body. [id number] multilevel degenerative disc disease and degenerative facet disease. Large amount of stool throughout the colon. IMPRESSION: Age-indeterminate L1 and L2 compression fractures. Correlation with point tenderness suggested. MRI could further assess the acuity. This document has been electronically signed by: Tim Anderson MD on 07/27/2025 15:13:02
--- NOTE | ~2025-07-27 | CT_ITS ---
CLINICAL HISTORY: fall CT cervical spine without contrast Comparison: None provided Findings: Mild convex right mid cervical curvature. Sagittal reconstructions demonstrate kyphosis within the midcervical spine. Moderate to severe multilevel degenerative disc disease and degenerative facet disease throughout the cervical spine, most pronounced at C4-5 and C5-6 with complete loss of the disc space with bulky osteophyte formation. No discrete fracture or prevertebral soft tissue swelling is identified. Upper airway is patent. No apical pneumothorax. IMPRESSION: 1. No acute fracture. 2. Generalized kyphosis throughout the cervical spine with moderate to severe multilevel degenerative change. This document has been electronically signed by: Tim Anderson MD on 07/27/2025 15:57:17
--- NOTE | ~2025-07-27 | XR_ITS ---
CLINICAL HISTORY: fall hx spinal surgery 3 views thoracic spine Comparison: CR - XR LUMBAR SPINE 2-3V - 07/27/25 14:11 EDT Findings: Minimal convex left lower thoracic curvature. Lateral view demonstrates anatomic alignment. No fracture identified. Mild scattered degenerative changes throughout the thoracic spine. IMPRESSION: No acute findings. This document has been electronically signed by: Tim Anderson MD on 07/27/2025 15:13:21
--- OUTSIDE RECORDS SUMMARY | 2025-07-27 13:16 | XMS_ITS | Clinical Summary ---
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 Phone Chitra King MD Primary Care Provider [phone] Social History Tobacco Use Types Packs/Day Years Used Date Smoking Tobacco: Never Assessed Comments Unknown Sex and Gender Information Value Date Recorded Sex Assigned at Not on file Legal Sex Female 2:05 PM EDT Gender Identity Not on file Sexual Orientation Not on file Plan of Treatment Health Maintenance Due Date Last Done Comments Hepatitis C Screening 1955 DTaP/Tdap/Td (1 - Tdap) 1972 Mammogram/Breast Imaging 1994 Pneumococcal 50+ years (1 of 1 - PCV) 2004 Zoster (Shingrix) (1 of 2) 2004 Bone Density 2019 COVID-19 Vaccine ( - 2024-2 6 season) 2025 Influenza (#1) 2025 RSV (1 - 1-dose 75+ series) 2029 HPV Vaccine (No Doses Required) Completed Hep A Aged Out No longer eligi ble based on patient's age to complete this topic Hep B Aged Out No longer eligi ble based on patient's age to complete this topic Hib Aged Out No longer eligi ble based on patient's age to complete this topic Meningococcal ACWY Aged Out No longer eligible based on patient's age to complete this topic Pap Smear Discontinued Zoster (Zostavax) Discontinued Insurance [address] [place] [id number] [employer] Care Teams 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
--- OUTSIDE RECORDS SUMMARY | 2025-07-27 13:16 | XMS_ITS | Data Portability ---
Author Organization [facility] Address [address] [place] [id number] Care Team Providers Care Research Study Assistant Name Role Phone [facility] Referring Provider [phone] OS, TANIA Referring Provider Assessment Encounter Date Assessment Date Assessment LastModified by Organization Details LastModified Time 02/07/2022 02/07/2022 I have reviewed and agree with the Assessment and Plan as documented by the City Supervisor. I provided real -time medical direction via phone for this encounter, and was available for additional phone based assistance as needed. Patient given the opportunity to ask questions. Not available 02/07/2022 17:10:32 Plan of Treatment Reminders Order Date Submit Date Provider Last Modified By Organization Details Last Modified Time Details Appointments None recorded. Lab None recorded. Referral None recorded. Procedures None recorded. Surgeries None recorded. Imaging electrocard iogram 2021 022 [facility], [address] [place] [address], [phone] 11:49:25 Medication Orders None recorded. Patient TargetsNo targets recorded. Patient Instructions Encounter Date Encounter Id Patient Instructions Last Modified By Organization Details Last Modified Time 02/07/2022 [id number] IV lock, initiate* [email or web address] Not available 02/07/2022 18:12:23 Reason for Referral None Reported. Results Created Date Observation Date Name Description Value Unit Range Abnormal Flag Note LastModifiedBy Organization Detail LastModifiedTime 02/08/20 22 02/07/2022 elect torrey duboisgr am No observ ation record ed. [address], [phone] 02/08/2022 09:06:20 Result Notes None recorded. Medical Equipment None Reported. Medications Name Sig Start Date Stop Date Status Note LastModified by Organization Details LastModified Time melatonin 10 mg tabs active Not Available Not Available Not Available vitamin d 25 mcg (1000 ut) caps active Not Available Not Available Not Available ultracare insulin syringe/u-10 0/1ml /30g x 1/2 30g x 1/2 1 ml misc active Not Available Not Available Not Available atorvastatin 40 mg tablet TAKE 1 TABLET BY MOUTH EVERY DAY AT BEDTIME. STOP SIMVASTATIN active Not Available Not Available Not Available prednisone 10 mg tablet TAKE 1 TABLET BY ORAL ROUTE EVERY DAY X 7 DAYS active Not Available Not Available No t Available venlafaxine ER 75 mg capsule,exte nded release 24 hr TAKE ONE CAPSULE BY MOUTH EVERY DAY WITH FOOD active Not Available Not Available No t Available lidocaine 4 % topical patch active Not Available Not Available Not Available prednisone 20 mg tablet TAKE 1 TABLET BY ORAL ROUTE EVERY DAY FOR 5 DAYS active Not Available Not Available N ot Available metformin 850 mg tablet TAKE 1 TABLET BY ORAL ROUTE 2 TIMES EVERY DAY WITH MORNING AND EVENING MEALS active Not Available Not Available No t Available Lantus U-100 Insulin 100 unit/mL subcutaneous solution INJECT 20 UNITS BY SUBCUTANEOU S ROUTE IN THE MORNING active Not Available Not Available Not Available venlafaxine ER 150 mg capsule,exte nded release 24 hr TAKE ONE CAPSULE BY MOUTH EVERY DAY active Not Available Not Available No t Available Calcium Antacid 200 mg (as calcium carbonate 500 mg) chewable tablet TAKE 1 TABLET BY MOUTH 2-3 TIMES DAILY NEEDED active Not Available Not Available No t Available oxycodone-ac etaminophen 5 mg-325 mg tablet TAKE 1 TABLET BY ORAL ROUTE EVERY 12 HOURS NEEDED active Not Available Not Available No t Available buspirone 10 mg tablet TAKE 1 TABLET BY ORAL ROUTE 2 TIMES EVERY DAY active Not Available Not Available No t Available Banophen 25 mg capsule TAKE 1 CAPSULE BY MOUTH EVERY DAY AT BEDTIME NEEDED FOR ITCH active Not Available Not Available No t Available ferrous sulfate 325 mg (65 mg iron) tablet,delay ed release TAKE 1 TABLET BY ORAL ROUTE EVERY DAY active Not Available Not Available No t Available diazepam 5 mg tablet TAKE 1 TABLET BY MOUTH AT BEDTIME active Not Available Not Available No t Available oxycodone 5 mg tablet TAKE 1 TABLET BY MOUTH EVERY 4 HOURS NEEDED FOR PAIN DIRECTED. (DO NOT DRIVE WHILE ON THIS MEDICATION) active Not Available Not Available Not Available cholecalcife rol (vitamin D3) 25 mcg (1,000 unit) capsule TAKE 1 CAPSULE BY MOUTH EVERY DAY active Not Available Not Available No t Available clobetasol 0.05 % shampoo active Not Available Not Available Not Available pregabalin 25 mg capsule active Not Available Not Available Not Available pregabalin 75 mg capsule TAKE 1 CAPSULE BY MOUTH EVERY MORNING active Not Available Not Available No t Available varenicline tartrate 1 mg tablet TAKE 1 TABLET BY ORAL ROUTE 2 TIMES EVERY DAY WITH GLASS OF WATER AFTER MEALS active Not Available Not Available Not Available diclofenac 1 % topical gel APPLY 2 GRAM BY TOPICAL ROUTE 2-3 TIMES EVERY DAY TO THE AFFECTED AREA(S) active Not Available Not Available No t Available melatonin 5 mg tablet TAKE 2 TABLETS BY MOUTH AT BEDTIME active Not Available Not Available No t Available ClearLax 17 gram/dose oral powder TAKE (17G) BY ORAL ROUTE ONCE DAILY NEEDED MIXED WITH 8 OZ. WATER, JUICE, SODA, COFFEE OR TEA active Not Available Not Available No t Available Myrbetriq 50 mg tablet,exten ded release TAKE 1 TABLET BY MOUTH EVERY DAY WITH WATER, DO NOT CRUSH, CHEW OR DIVIDE active Not Available Not Available No t Available OxyContin 30 mg tablet,crush resistant,ex tended release TAKE 1 TABLET BY ORAL ROUTE EVERY 12 HOURS active Not Available Not Available No t Available melatonin 10 mg-lemon balm leaf extract 1 mg tablet TAKE 1 TABLET BY MOUTH AT BEDTIME active Not Available Not Available No t Available naloxone 4 mg/actuation nasal spray active Not Available Not Available Not Available Mucus Relief ER 1,200 mg tablet, extended release TAKE 1 TABLET DAILY X 7 DAYS active Not Available Not Available No t Available Ultracare Insulin Syringe 1 mL 30 gauge x 1/2 FOR USE WITH INSULIN ADMINISTRAT ION PER PROVIDER ORDERS active Not Available Not Available No t Available Vitals Date Recorded Oxygen saturation Oxygen saturation in Arterial blood by Pulse oximetry Heart rate Respiratory rate Systolic And Diastolic Provider Name and Address Organization Details Last Updated DateTime 2 96 % 96 % 86 /min 20 /min 122/78 mm[Hg] Not Available [facility] - production 2 17:21:01 Social History None recorded. Functional Status None recorded. Mental Status None recorded. Family History Nothing Reported. Medical History No medical history recorded. Gynecological HistoryNo gynecological history recorded. Obstetrics History GPAL:G 0 P 0 0 0 0 Past Encounters Encounter ID Performer Location Encounter Start Date Encounter Closed Date Diagnosis/Indication Diagnosis SNOMED-CT Code Diagnosis ICD10 Code Diagnosis IMO Codes Diagnosis Note [id number] Sridevi Zimmerman MD Main - [facility] [address] [place] [address] 02/07/2022 17:03:36 06/16/2022 18:12:16 Chest pain 65836211 R07.9 Given severity of CP- no relief from her oxycodone earlier- middle aged female w/ HTN- needed emergent evaluation in the ER. report called to [place] [facility].Initial BP was lower- I had ordered ASA 81 mg x 4, and NTG if Bp OK- prudent to get IV access first: BP normalized , but as noted above [facility] did not have chance to give medication as 911 medics arrived promptly and assumed care. Health Concerns Section Related Observation LastModified by Organization Detai ls LastModified Time None Recorded Concern Status LastModified by Organization Details LastModified Time None Recorded Advance Directives Directive None Recorded Payers Insurance Date Sequence Insurance Name Policy Number Policy Coughlin Covered Member ID Coughlin Member ID Guarantor Name 09/07/2024 1 [facility] (MEDICARE - MEDICAID REPLACEMENT) Danae Cadena [id number] Danae Cadena Notes Date Note Type Note Provider Name and Address Organization Details Recorded Time 02/07/2022 text/html ROS as noted in the HPI HPI: Pt complaining of chest pain and jaw pain over the past couple hours. Pt does intermittently have angina and jaw pain. She reports she was having pain after helping her homemaker move boxes. Chronically taking oxycodone and Percocet w/ little effect. .SEGMD: Pat states CP onset yesterday after exertion/ moving boxes- has been severe and constant for hours- pain flaring up her chronic LBP rad to hips/ no relief fromher usual oxycodone earlier............. .................... .................... .................... .................... .................... .................... ........ City Supervisor Note: Chief Complaint chest pain Pertinent positive and negative Review of Systems (ROS) findings Constitutional: Afebrile without fatigue/malaise/ lethargy. Denies Chills HEENT: Denies visual changes Resp: no cough, Wheeze, Hemoptysis, SOB or FRANCO Cardio: Denies palpitations GI: Denies N/V/D or current loss of appetite Genitourinary: Appropriate frequency without pain or odor Musculoskeletal: Pt denies pain or swelling Neuro: Alert to baseline Psych: Denies anxiety or depression Skin: Denies rashes or wounds Endocrine: No new unexpected weight loss/gain Focused Physical Assessment Findings Pt reports severe chest pain under right breast radidating to jaw and also complains of back pain. Denied sob/nausea/vomiting/ dizziness, General: Well developed and well nourished in no acute distress HEENT: Unremarkable Neck: Unremarkable Lungs: Clear to auscultation without egophony Heart: Regular rate and rhythm Abdomen: Soft, Non-distended and non-tender Extremities: No Cyanosis, rash, lesions or edema Neuro: At baseline Psych: Good Affect/Mood/ Attention Skin Intact without rash Contacted Dr. Zimmerman and pt will be transported to er for chest pain. ASA was considered but not given due to [facility] arrived as i was securing iv. .................... .................... .................... .................... .................... .................... .................... . Disposition: Fulfilled Sridevi Zimmerman MD [address] [facility],[address], [place], [address], [employer] 02/07/2022 18:14:34 OBGyn Episode No OBEpisode recorded.
--- OUTSIDE RECORDS SUMMARY | 2025-07-27 13:16 | XMS_ITS | Clinical Summary ---
Author Organization [facility] Address [address] [place] [address] Care Team Providers Care Transmission System Operator Name Role Phone Unavailable Primary Care Provider Unavailabl e Source Comments PLEASE NOTE, if this patient is a minor, it may be UNLAWFUL to discuss sensitive information that is contained in these records (such as FAMILY PLANNING, MENTAL HEALTH or SUBSTANCE ABUSE) with the minor patient's parent or other person without the patient's specific authorization.[facility] Medications No known medications Active Problems No known active problems Social History Tobacco Use Types Packs/Day Years Used Date Smoking Tobacco: Never Assessed Social Connections Answer Date Recorded Connectedness 0 06/28/2024 Financial Resource Strain Answer Date R ecorded Financial Resource Strain 0 2023 Stress Answer Date Recorded Stress 0 01/01/2024 Physical Activity Answer Date Recorded Physical Activity 0 01/01/2024 Food Insecurity Answer Date Recorded Food 0 07/04/2024 Transportation Needs Answer Date Record ed Transportation 0 01/01/2024 Housing Stability Answer Date Recorded Housing 0 01/01/2024 Safety and Environment Answer Date Surinder rded Safety 0 01/01/2024 Utilities Answer Date Recorded Utilities 0 01/01/2024 Employment Answer Date Recorded Stress 0 06/28/2024 Comments Unknown Sex and Gender Information Value Date Recorded Sex Assigned at Not on file Legal Sex Female 6:24 AM PDT Gender Identity Not on file Sexual Orientation Not on file Plan of Treatment Health Maintenance Due Date Last Done Comments Diabetes Screening 1955 Hepatitis C Screening 1954 Lipid Screening 1954 Tobacco Screening 1954 Hypertension Screening (#1) 1972 Imm-DTaP/Tdap/Td (1 - Tdap) 1973 Breast Cancer Screening (Mammogram) 1994 CT Colonography 1999 Colonoscopy 1999 Colorectal Cancer Screening 1999 FIT/gFOBT 1999 Fecal DNA 1999 Flexible Sigmoidoscopy 1999 Imm-Pneumococcal 50+ (1 of 1 - PCV) 2004 Imm-Zoster, Recombinant (1 of 2) 2004 Bone Density Screening 2019 Falls Prevention 2019 Alcohol and Drug Screen 10/09/2024 Depression Annual Screen 10/09/2024 [id number] ( season) 2025 Imm-Influenza (#1) 2025 Insurance [id number]
--- NOTE | 2025-07-27 13:23 | ED.FALL ---
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 Patient states she was attempting to get out of her bed when she became cutoff in her blanket, causing her to fall backward landing directly on her lower back/right buttock. Admits to immediate pain to her midline back exacerbated with any movement. No radiation down LEs. Denies numbness/tingling. Denies head strike or LOC. Not on anticoagulation. Reports contacted EMS who then transferred her here. She did not receive any pain control in route to ED. Admits to previous spinal surgery at [facility] proximally 5 years ago. No complications. Denies IVDU. Related Data Home Medications ?Medication ?Instructions ?Recorded ?Confirmed acetaminophen 650 mg 1,300 mg PO Q8H PRN Pain 07/28/25 07/28/25 tablet,extended release albuterol sulfate 90 mcg/actuation 2 inh inhalation Q4-6H PRN 07/28/25 07/28/25 breath activated powder inhaler Shortness Of Breath Or Wheezing (ProAir RespiClick) atorvastatin 40 mg tablet 40 mg PO DAILY 07/28/25 07/28/25 buspirone 10 mg tablet 10 mg PO BID 07/28/25 07/28/25 cholecalciferol (vitamin D3) 25 25 mcg PO DAILY 07/28/25 07/28/25 mcg (1,000 unit) tablet (Vitamin D3) diazepam 5 mg tablet 5 mg PO BEDTIME 07/28/25 07/28/25 ferrous sulfate 325 mg (65 mg 325 mg PO DAILY 07/28/25 07/28/25 iron) tablet ibuprofen 600 mg tablet 600 mg PO TID PRN Pain 07/28/25 07/28/25 insulin glargine 100 unit/mL 30 unit subcut DAILY 07/28/25 07/28/25 subcutaneous solution (Lantus U-100 Insulin) metformin 1,000 mg tablet 1,000 mg PO BID 07/28/25 07/28/25 mirabegron 50 mg tablet,extended 50 mg PO DAILY 07/28/25 07/28/25 release 24 hr (Myrbetriq) oxycodone 30 mg tablet,crush 30 mg PO BID 07/28/25 07/28/25 resistant,extended release 12 hr (OxyContin) oxycodone-acetaminophen 5 mg-325 5 - 325 tab PO Q8H PRN Pain 07/28/25 07/28/25 mg tablet polyethylene glycol 3350 17 17 g PO DAILY PRN Constipation 07/28/25 07/28/25 gram/dose oral powder (Miralax) venlafaxine 150 mg 150 mg PO DAILY 07/28/25 07/28/25 capsule,extended release 24 hr Allergies Allergy/AdvReac Type Severity Reaction Status Date / Time No Known Allergies Allergy Mild NOT Verified 07/27/25 12:58 APPLICABLE Review of Systems Review of Systems: Yes all other systems are reviewed and are negative [facility] Past Medical History Attestation statement: The following information was validated with the patient. Source: old records reviewed and nursing notes reviewed Medical History Right rib fracture Hypertension Diabetes mellitus Social History Social History Alcohol intake: current Alcohol intake frequency: does not drink Patient Tobacco Use Status: Never used Tobacco Smoked in Last 30 Days: No Use of substances other than those prescribed or required for medical reasons: No Advance Directives: No Advance Directives Information Provided: Yes Physical Exam Vital Signs: Vital Signs: Last Vital Signs Temp 97.4 F 07/29/25 06:00 Pulse 68 07/29/25 06:00 Resp 18 07/29/25 06:00 BP 100/64 07/29/25 06:00 Pulse Ox 92 07/29/25 06:00 O2 Del Method Room Air 07/29/25 06:00 BMI result Body Mass Index 25.9 hypertensive, vitals are otherwise wnl General: Well appearing, in no acute distress. Skin: Warm, dry, intact. No rashes or lesions. Head: Normocephalic, atraumatic. No palpable skull fracture, hematoma. no battles sign, raccoon eyes. EENT: Hearing is intact b/l. Conjunctiva clear. PERRLA. EOM intact. Moist mucous membranes.? Neck: denies neck pain - cervical collar removed. no midline c spine tenderness, FROM intact to c spine Cardiac: Chest wall symmetric. RRR Lungs: Normal respiratory effort without accessory muscle use. CTA bilaterally Abdomen: Soft, non-tender, non-distended. No rebound tenderness or guarding. Positive BS x4. Back: +ttp along midline lumbar spine L1/L2, no palpable step off. no fluctuance, warmth, crepitus. no overlying skin changes/rashes/deformities. Ext: Upper and lower extremities atraumatic, without tenderness, deformity, swelling or erythema. Full ROM throughout Neuro: AOx3. Normal speech. Strength 5/5 intact throughout. No saddle anesthesia. Sensation intact to light touch. NV intact distally. unable to assess ambulating d/t patient's discomfort. Course Course Course Narrative: 1613 -- ct head without bleed. ct cervical spine without fracture. xr thoracic spine without acute fracture. X-ray lumbar spine showing age indeterminate L1/L2 compression fractures, suggesting correlation with point tenderness. Recommending possible MRI to further assess acuity. > patient has point tenderness over this area. Concern for acute compression fractures. She has been medicated with morphine and Dilaudid without much improvement in pain however appears to be lying comfortably on the exam bed playing on her phone until I go to examine her, begins to cry out. > she has no neuro deficits and I am not concerned about cauda equina however given age indeterminate status of these compression fractures, I did place an order for CT lumbar spine to further assess fractures/pain - fuel conversion technician stating that ct lumbar spine will not provide any further information, requesting that the patient receive MRI outpatient instead. > discussed results with patient. will treat as acute compression fractures. will trial PO oxycodone PRN pain and plan for PT/CM. > patient states she is a DNI. placed in physician observation at this time pending PT/CM evals Time: 09:12 Date: 07/28/25 Provider: ELIZABET Ziegler Patient in physician observation for case management needs. No acute events reported overnight.? No current issues or complaints. VS stable. Patient is pending PT/CM eval. Will continue to monitor. Time: 08:52 Date: 07/29/25 Provider: Gamal Carter PA-C Patient in physician observation for case management needs. No acute events reported overnight.? No current issues or complaints. VS stable. Patient is discharging to [place] for STR. Will continue to monitor as we await transportation for disposition. Medications Administered Generic Name Dose Route Start Last Admin Trade Name Freq PRN Reason Stop Dose Admin Acetaminophen 975 mg 07/27/25 23:17 07/29/25 04:31 Acetaminophen 325 Mg Tablet PO 975 mg Q6H PRN Administration Pain, Moderate(Pain Scale 4-6) Atorvastatin Calcium 40 mg 07/28/25 09:15 07/29/25 07:45 Atorvastatin Calcium 40 Mg Tablet PO 40 mg DAILY JAYCEE Administration Buspirone HCl 10 mg 07/28/25 09:15 07/28/25 23:49 Buspirone Hcl 10 Mg Tablet PO Not Given BID JAYCEE Diazepam 5 mg 07/28/25 21:00 07/28/25 20:28 Diazepam 5 Mg Tablet PO 5 mg BEDTIME JAYCEE Administration Ferrous Sulfate 324 mg 07/28/25 10:30 07/29/25 07:45 Ferrous Sulfate 324 Mg Tablet.Dr PO 324 mg DAILY JAYCEE Administration Ibuprofen 600 mg 07/28/25 09:06 07/29/25 04:30 Ibuprofen 600 Mg Tablet PO 600 mg TID PRN Administration Pain, Moderate(Pain Scale 4-6) Insulin Glargine 30 unit 07/28/25 09:15 07/29/25 07:44 Insulin Glargine,Hum.Rec.Anlog 100 Unit/Ml 10 Ml Vial SUBCUT 30 unit DAILY JAYCEE Administration Lidocaine 1 patch 07/29/25 09:00 07/29/25 07:46 Lidocaine 4 % Patch Adh..Patch TRANSDERMA 1 patch DAILY JAYCEE Administration Protocol Metformin HCl 1,000 mg 07/28/25 09:15 07/29/25 07:45 Metformin Hcl 1,000 Mg Tablet PO 1,000 mg BID JAYCEE Administration Mirabegron 50 mg 07/28/25 09:15 07/29/25 07:45 Mirabegron 50 Mg Tab.Er.24h PO 50 mg DAILY JAYCEE Administration Oxycodone HCl 5 mg 07/27/25 15:41 07/29/25 01:32 Oxycodone Hcl Immed Release 5 Mg Tablet PO 5 mg Q6H PRN Administration Pain, Severe (Pain Scale 7-10) Oxycodone HCl 30 mg 07/28/25 21:00 07/29/25 07:45 Oxycodone Hcl Er 10 Mg Tab.Er.12h PO 30 mg BID JAYCEE Administration Venlafaxine HCl 150 mg 07/28/25 10:30 07/28/25 11:18 Venlafaxine Hcl Er 150 Mg Cap.Er.24h PO Not Given DAILY JAYCEE Vitamin D 25 mcg 07/28/25 09:15 07/29/25 07:45 Cholecalciferol (Vitamin D3) 25 Mcg Tablet PO 25 mcg DAILY JAYCEE Administration Discontinued Medications Generic Name Dose Route Start Last Admin Trade Name Freq PRN Reason Stop Dose Admin Cyclobenzaprine HCl 5 mg 07/27/25 13:58 07/27/25 14:16 Cyclobenzaprine Hcl 5 Mg Tablet PO 07/27/25 13:59 5 mg ONCE ONE Administration Diazepam 2 mg 07/27/25 23:19 07/27/25 23:34 Diazepam 2 Mg Tablet PO 07/27/25 23:20 2 mg ONCE ONE Administration Hydromorphone HCl 0.5 mg 07/27/25 15:07 07/27/25 15:21 Hydromorphone Hcl 0.5 Mg/0.5 Ml Syringe IVPUSH 07/27/25 15:08 0.5 mg ONCE ONE Administration Protocol Hydromorphone HCl 0.5 mg 07/27/25 19:48 07/27/25 20:07 Hydromorphone Hcl 0.5 Mg/0.5 Ml Syringe IVPUSH 07/27/25 19:49 0.5 mg ONCE ONE Administration Protocol Hydromorphone HCl 0.5 mg 07/28/25 05:31 07/28/25 05:35 Hydromorphone Hcl 0.5 Mg/0.5 Ml Syringe IVPUSH 07/28/25 05:32 0.5 mg ONCE ONE Administration Protocol Ketorolac Tromethamine 15 mg 07/27/25 23:19 07/27/25 23:32 Ketorolac Tromethamine 15 Mg/Ml Vial IVPUSH 07/27/25 23:20 15 mg ONCE ONE Administration Lidocaine 1 patch 07/27/25 13:58 07/27/25 14:17 Lidocaine 4 % Patch Adh..Patch TRANSDERMA 07/27/25 13:59 1 patch ONCE ONE Administration Protocol Morphine Sulfate 4 mg 07/27/25 13:51 07/27/25 14:16 Morphine Sulfate 10 Mg/Ml Cartridge IVPUSH 07/27/25 13:52 4 mg ONCE ONE Administration Protocol Medical Decision Making Medical Decision Making [facility] Narrative: 69 year old female with pmhx significant for HTN and DM presents to the ED today via EMS for evaluation s/p 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 hypertensive, vitals are otherwise wnl. she is crying out in pain however composes herself when answering questions/ talking on the phone. on exam, she is ttp along midline lumbar spine L1/L2, no palpable step off. no fluctuance, warmth, crepitus. no overlying skin changes/rashes/deformities. NV intact distally. able to move all extremities. no saddle anesthesia. Differential diagnosis includes contusion, MSK sprain/strain, compression fracture, hardware malfunction Unlikely cauda equina, Guillain-[place], epidural abscess, cord compression Given MALINI and age, will scan head to make sure there is no shearing of the bridging vessels. Her exam is nonfocal. She is ttp along midline spine - imaging of thoracic/lumbar spine ordered to assess for fracture and evaluate hardware. Differential Diagnosis Differential Diagnoses: The differential diagnosis associated with the presentation includes as above. Admission/Observation not indicated Lab Data 07/27/25 23:31 07/27/25 23:31 Labs: Lab Results 07/27/25 07/27/25 07/28/25 Range/Units 20:08 23:31 01:19 WBC 5.8 (4.8-10.8) X10*3/uL RBC 4.14 L (4.20-5.50) X10*6/uL Hgb 13.0 D (12.0-16.0) g/dl Hct 38.8 D (37.0-47.0) % MCV 93.7 (80.0-98.0) fL MCH 31.4 (27.0-33.0) pg MCHC 33.5 (31.0-35.0) g/dl RDW 12.4 (11.0-16.0) % Plt Count 248 D (160-400) X10*3/uL MPV 9.8 (9.4-12.3) fL Immature Gran % (Auto) 0.3 (0.0-0.4) % Neut % (Auto) 68.7 (45-73) % Lymph % (Auto) 21.8 (20-40) % [place] % (Auto) 7.9 (2-11) % Eos % (Auto) 1.0 (0-4) % Baso % (Auto) 0.3 (0-2) % Lymph # (Auto) 1.3 (1.2-4.9) X10*3/uL [place] # (Auto) 0.5 (0.1-1.2) X10*3/uL Eos # (Auto) 0.1 (0.0-0.4) X10*3/uL Baso # (Auto) 0.0 (0.0-0.2) X10*3/uL Abs Immat Gran (auto) 0.02 (0.00-0.03) X10*3/uL Absolute Neuts (auto) 4.0 (2.0-8.3) x10*3/uL Absolute Nucleated RBC 0.000 (0.0-0.012) X10*3/uL Nucleated RBC % (auto) 0.0 (0.0-0.2) /100WBC Sodium 140 (135-145) mmol/L Potassium 4.1 (3.3-5.1) mmol/L Chloride 104 (96-108) mmol/L Carbon Dioxide 26 (22-29) mmol/L Anion Gap 14 (12-20) BUN 12 (9-16) mg/dL Creatinine 0.63 (0.5-1.4) mg/dL Estim Creat Clear Calc 81.8 Estimated GFR > 60 POC Glucose 133 H (60-115) mg/dL Random Glucose 119 H (60-115) mg/dL Calcium 8.7 (8.4-10.2) mg/dL Total Bilirubin 1.5 H (0.0-1.0) mg/dL AST 21 (5-31) U/L ALT 18 (0-31) U/L Alkaline Phosphatase 51 (39-117) U/L Total Protein 6.3 L (6.5-8.0) g/dL Albumin 4.1 (3.5-5.0) g/dL Urine Color Yellow Urine Appearance Cloudy Urine pH 8.0 (5.0-9.0) Ur Specific [place] 1.025 (1.005-1.025) Urine Protein Trace (Neg-Trace) mg/dL Urine Glucose (UA) Negative (Negative) mg/dL Urine Ketones 15 (Negative) mg/dL Urine Blood Negative (Negative) Urine Nitrite Negative (Negative) Ur Leukocyte Esterase Trace H (Negative) Urine RBC 0-2 (0-2) /HPF Urine WBC 0-5 (0-5) /HPF Ur Squamous Epith Cells >20 (0-2) /HPF Urine Bacteria 4+ (None Seen) Hyaline Casts 0-2 (0-2) /LPF Influenza Type A (PCR) (Negative) Influenza Type B (PCR) (Negative) RSV RNA Qual (PCR) (Negative) SARS-CoV-2 RNA (RT-PCR) (Negative) 07/28/25 07/28/25 07/28/25 Range/Units 08:26 10:27 12:26 WBC (4.8-10.8) X10*3/uL RBC (4.20-5.50) X10*6/uL Hgb (12.0-16.0) g/dl Hct (37.0-47.0) % MCV (80.0-98.0) fL MCH (27.0-33.0) pg MCHC (31.0-35.0) g/dl RDW (11.0-16.0) % Plt Count (160-400) X10*3/uL MPV (9.4-12.3) fL Immature Gran % (Auto) (0.0-0.4) % Neut % (Auto) (45-73) % Lymph % (Auto) (20-40) % [place] % (Auto) (2-11) % Eos % (Auto) (0-4) % Baso % (Auto) (0-2) % Lymph # (Auto) (1.2-4.9) X10*3/uL [place] # (Auto) (0.1-1.2) X10*3/uL Eos # (Auto) (0.0-0.4) X10*3/uL Baso # (Auto) (0.0-0.2) X10*3/uL Abs Immat Gran (auto) (0.00-0.03) X10*3/uL Absolute Neuts (auto) (2.0-8.3) x10*3/uL Absolute Nucleated RBC (0.0-0.012) X10*3/uL Nucleated RBC % (auto) (0.0-0.2) /100WBC Sodium (135-145) mmol/L Potassium (3.3-5.1) mmol/L Chloride (96-108) mmol/L Carbon Dioxide (22-29) mmol/L Anion Gap (12-20) BUN (9-16) mg/dL Creatinine (0.5-1.4) mg/dL Estim Creat Clear Calc Estimated GFR POC Glucose 118 H 236 H (60-115) mg/dL Random Glucose (60-115) mg/dL Calcium (8.4-10.2) mg/dL Total Bilirubin (0.0-1.0) mg/dL AST (5-31) U/L ALT (0-31) U/L Alkaline Phosphatase (39-117) U/L Total Protein (6.5-8.0) g/dL Albumin (3.5-5.0) g/dL Urine Color Urine Appearance Urine pH (5.0-9.0) Ur Specific [place] (1.005-1.025) Urine Protein (Neg-Trace) mg/dL Urine Glucose (UA) (Negative) mg/dL Urine Ketones (Negative) mg/dL Urine Blood (Negative) Urine Nitrite (Negative) Ur Leukocyte Esterase (Negative) Urine RBC (0-2) /HPF Urine WBC (0-5) /HPF Ur Squamous Epith Cells (0-2) /HPF Urine Bacteria (None Seen) Hyaline Casts (0-2) /LPF Influenza Type A (PCR) NEGATIVE (Negative) Influenza Type B (PCR) NEGATIVE (Negative) RSV RNA Qual (PCR) NEGATIVE (Negative) SARS-CoV-2 RNA (RT-PCR) NEGATIVE (Negative) 07/28/25 07/28/25 07/29/25 Range/Units 16:57 20:33 07:24 WBC (4.8-10.8) X10*3/uL RBC (4.20-5.50) X10*6/uL Hgb (12.0-16.0) g/dl Hct (37.0-47.0) % MCV (80.0-98.0) fL MCH (27.0-33.0) pg MCHC (31.0-35.0) g/dl RDW (11.0-16.0) % Plt Count (160-400) X10*3/uL MPV (9.4-12.3) fL Immature Gran % (Auto) (0.0-0.4) % Neut % (Auto) (45-73) % Lymph % (Auto) (20-40) % [place] % (Auto) (2-11) % Eos % (Auto) (0-4) % Baso % (Auto) (0-2) % Lymph # (Auto) (1.2-4.9) X10*3/uL [place] # (Auto) (0.1-1.2) X10*3/uL Eos # (Auto) (0.0-0.4) X10*3/uL Baso # (Auto) (0.0-0.2) X10*3/uL Abs Immat Gran (auto) (0.00-0.03) X10*3/uL Absolute Neuts (auto) (2.0-8.3) x10*3/uL Absolute Nucleated RBC (0.0-0.012) X10*3/uL Nucleated RBC % (auto) (0.0-0.2) /100WBC Sodium (135-145) mmol/L Potassium (3.3-5.1) mmol/L Chloride (96-108) mmol/L Carbon Dioxide (22-29) mmol/L Anion Gap (12-20) BUN (9-16) mg/dL Creatinine (0.5-1.4) mg/dL Estim Creat Clear Calc Estimated GFR POC Glucose 264 H 319 H 193 H (60-115) mg/dL Random Glucose (60-115) mg/dL Calcium (8.4-10.2) mg/dL Total Bilirubin (0.0-1.0) mg/dL AST (5-31) U/L ALT (0-31) U/L Alkaline Phosphatase (39-117) U/L Total Protein (6.5-8.0) g/dL Albumin (3.5-5.0) g/dL Urine Color Urine Appearance Urine pH (5.0-9.0) Ur Specific [place] (1.005-1.025) Urine Protein (Neg-Trace) mg/dL Urine Glucose (UA) (Negative) mg/dL Urine Ketones (Negative) mg/dL Urine Blood (Negative) Urine Nitrite (Negative) Ur Leukocyte Esterase (Negative) Urine RBC (0-2) /HPF Urine WBC (0-5) /HPF Ur Squamous Epith Cells (0-2) /HPF Urine Bacteria (None Seen) Hyaline Casts (0-2) /LPF Influenza Type A (PCR) (Negative) Influenza Type B (PCR) (Negative) RSV RNA Qual (PCR) (Negative) SARS-CoV-2 RNA (RT-PCR) (Negative) Independent Interpretation I performed an independent interpretation of an: Plain X-Ray and CT Scan Interpretation: ct head without bleed or skull fracture ct c spine without fracture xr lumbar spine showing compression deformity to L1/L2 xr thoracic spine without fracture Radiology Impression Discussion of test interpretation with radiology: I have reviewed the radiologist's reading. Radiologist Impression: Procedure(s): CT cervical spine wo IV con Accession Number(s): [id number] cc: Physician,Unknown ; Bhakti Ramos~ Report Number: [id number]: Total DLP = 1191.00 mGy-cm Reason for Exam: fall CLINICAL HISTORY: fall CT cervical spine without contrast Comparison: None provided Findings: Mild convex right mid cervical curvature. Sagittal reconstructions demonstrate kyphosis within the midcervical spine. Moderate to severe multilevel degenerative disc disease and degenerative facet disease throughout the cervical spine, most pronounced at C4-5 and C5-6 with complete loss of the disc space with bulky osteophyte formation. No discrete fracture or prevertebral soft tissue swelling is identified. Upper airway is patent. No apical pneumothorax. IMPRESSION: 1. No acute fracture. 2. Generalized kyphosis throughout the cervical spine with moderate to severe multilevel degenerative change. This document has been electronically signed by: Tim Anderson MD on 07/27/2025 15:57:17 Procedure(s): CT head/brain wo IV con Accession Number(s): [id number] cc: Physician,Unknown ; Bhakti Ramos~ Report Number: [id number]: Total DLP = 0.00 mGy-cm Reason for Exam: fall CLINICAL HISTORY: fall CT head without contrast Comparison: None provided Findings: There is age-appropriate atrophy. The size and shape of the ventricular system is within normal limits for this degree of atrophy. Mild areas of low-attenuation are seen within the periventricular and deep white matter. Hammonds-white differentiation is well preserved. No midline shift or mass effect. No intracranial hemorrhage. No calvarial fractures. IMPRESSION: 1. No acute intracranial findings. This document has been electronically signed by: Tim Anderson MD on 07/27/2025 15:52:47 Procedure(s): XR thoracic spine 3V Accession Number(s): [id number] cc: Physician,Unknown ; Bhakti Ramos~ Reason for Exam: fall hx spinal surgery CLINICAL HISTORY: fall hx spinal surgery 3 views thoracic spine Comparison: CR - XR LUMBAR SPINE 2-3V - 07/27/25 14:11 EDT Findings: Minimal convex left lower thoracic curvature. Lateral view demonstrates anatomic alignment. No fracture identified. Mild scattered degenerative changes throughout the thoracic spine. IMPRESSION: No acute findings. This document has been electronically signed by: Tim Anderson MD on 07/27/2025 15:13:21 Date of Service: 07/27/25 Procedure(s): XR lumbar spine 2-3V Accession Number(s): [id number] cc: Physician,Unknown ; Bhakti Ramos~ Reason for Exam: fall low back pain CLINICAL HISTORY: fall low back pain 3 views lumbar spine Comparison: CR - XR THORACIC SPINE 3V - 07/27/25 14:10 EDT Findings: Mild convex right thoracolumbar curvature. Alignment is anatomic on the lateral view. Age-indeterminate height loss is seen at the superior endplate of the L1 vertebral body with mild height loss of along both the superior and inferior endplates of the L2 vertebral body. [id number] multilevel degenerative disc disease and degenerative facet disease. Large amount of stool throughout the colon. IMPRESSION: Age-indeterminate L1 and L2 compression fractures. Correlation with point tenderness suggested. MRI could further assess the acuity. This document has been electronically signed by: Tim Anderson MD on 07/27/2025 15:13:02 Independent Historian Clinical information obtained from an independent historian. History obtained from or confirmed by: EMS External Record Review External record reviewed: Inpatient record Prescription Management I considered prescription management with: Pain Medication Social Determinants Patient?s care significantly limited by Social Determinants of Health including: Other Social Determinant of Health Critical Care Time Critical Care Time Critical Care Time: Yes Total Critical Care Time: 33 Attestation: Critical care time in the amount of 33 minutes has been provided to the patient in terms of direct patient care, frequent reevaluation on IV morphine and dialudid, review and interpretation of medical data and results, and management of potentially life-threatening conditions. This is all outside of any medical procedures. Discharge Plan Discharge Clinical Impression: Closed compression fracture of L1 vertebra, Closed compression fracture of L2 vertebra, Fall, Compression fracture Patient Disposition: Xfer Inpatient Rehab Fac Transfer Details: TO: [facility] Prescriptions: No Action atorvastatin 40 mg tablet 40 mg PO DAILY insulin glargine [Lantus U-100 Insulin] 100 unit/mL solution 30 unit subcut DAILY venlafaxine 150 mg capsule,extended release 24hr 150 mg PO DAILY acetaminophen 650 mg tablet extended release 1,300 mg PO Q8H PRN (Reason: Pain) oxycodone-acetaminophen 5-325 mg tablet 5 - 325 tab PO Q8H PRN (Reason: Pain) ferrous sulfate 325 mg (65 mg iron) Tablet 325 mg PO DAILY metformin 1,000 mg tablet 1,000 mg PO BID buspirone 10 mg tablet 10 mg PO BID ibuprofen 600 mg tablet 600 mg PO TID PRN (Reason: Pain) polyethylene glycol 3350 [Miralax] 17 gram/dose Powder 17 g PO DAILY PRN (Reason: Constipation) diazepam 5 mg tablet 5 mg PO BEDTIME cholecalciferol (vitamin D3) [Vitamin D3] 25 mcg (1,000 unit) Tablet 25 mcg PO DAILY mirabegron [Myrbetriq] 50 mg tablet extended release 24 hr 50 mg PO DAILY oxycodone [OxyContin] 30 mg tablet,oral only,ext.rel.12 hr 30 mg PO BID ProAir RespiClick 90 mcg/actuation Aerosol Powdr Breath Activated 2 inh INHALATION Q4-6H PRN (Reason: Shortness Of Breath Or Wheezing) Referrals: Verenice Yi [Outside] Referral Note: [phone] Santosh Hay DO [Primary Care Provider, Family Practice] Print Language: Mohawk
[2025-07-27] MEDS: Lidocaine 4 % Patch ADH..PATCH 1 PATCH TRANSDERMA (14:17)
--- NOTE | 2025-07-27 17:33 | PC.NURSE ---
Pt able to void successful on bed vernon, unable to get sample due to spilling in bed. Pts bed changed and cleaned.
--- NOTE | 2025-07-27 17:40 | HO.NURTONUR ---
Story: Pt comes in via EMS from home, had a mechanical trip and fall (slipped on a blanket) and fell onto bottom. Reporting lower back and bottom pain (has chronic issues as well). Scans showed compression fxs in the lower back. Plan: PT/CM due to excessive pain and hard time moving around. Pain: 9/10 after morphine, dilaudid and muscle relaxers. Bathroom: bed vernon, we tried to send a sample but were unable this past time IV: 20G in right AC Regular diet Alert and oriented Pills whole with water
[2025-07-27] MEDS: oxyCODONE HCl Immed Release 5 MG TABLET PO (18:19)
[2025-07-27 20:11] LABS: Glucose, Whole Blood 133 mg/dL (60-115)
[2025-07-27 23:45] LABS: MANUAL DIFF FLAG NO
[2025-07-27 23:46] LABS: Hematocrit 38.8 % (37.0-47.0); Hemoglobin 13.0 g/dl (12.0-16.0); Imm Gran Abs Auto 0.02 X10*3/uL (0.00-0.03); Imm Gran Pct Auto 0.3 % (0.0-0.4); Lymphocytes Absolute Auto 1.3 X10*3/uL (1.2-4.9); Mean Corpuscular HGB Conc 33.5 g/dl (31.0-35.0); Mean Corpuscular Hemoglobin 31.4 pg (27.0-33.0); Mean Corpuscular Volume 93.7 fL (80.0-98.0); NRBC Abs Auto 0.000 X10*3/uL (0.0-0.012); NRBC Pct Auto 0.0 /100WBC (0.0-0.2); Platelet Count 248 X10*3/uL (160-400); Red Blood Count 4.14 X10*6/uL (4.20-5.50); White Blood Count 5.8 X10*3/uL (4.8-10.8)
[2025-07-27 23:58] LABS: Alanine Aminotransferase 18 U/L (0-31); Albumin Level 4.1 g/dL (3.5-5.0); Alkaline Phosphatase 51 U/L (39-117); Anion Gap 14 (12-20); Aspartate Amino Transferase 21 U/L (5-31); Blood Urea Nitrogen 12 mg/dL (9-16); Calcium 8.7 mg/dL (8.4-10.2); Carbon Dioxide 26 mmol/L (22-29); Chloride 104 mmol/L (96-108); Creatinine Clr Calc Pharmacy 81.8; Estimated Glomerular Filt Rate > 60; Potassium 4.1 mmol/L (3.3-5.1); Sodium 140 mmol/L (135-145); Total Protein 6.3 g/dL (6.5-8.0)
[2025-07-28] MEDS: oxyCODONE HCl Immed Release 5 MG TABLET PO ×3 (01:10→16:51)
[2025-07-28 01:45] LABS: Appearance Urine Cloudy; Glucose Urine UA Negative (Negative); PH 8.0 (5.0-9.0); Specific Gravity - Urine 1.025 (1.005-1.025); UMIC TRIGGER UACC YES
[2025-07-28 05:15] VITALS: BP 118/64; PULSE 86; RESP 16; TEMP 37.1; O2SAT 94
[2025-07-28 08:29] LABS: Glucose, Whole Blood 118 mg/dL (60-115)
--- NOTE | 2025-07-28 08:52 | PHA.MEDREC ---
Pharmacy Consult ? Medication Reconciliation Pharmacy has completed the medication reconciliation. Utilized claims and med list from [facility].
--- NOTE | 2025-07-28 10:23 | PC.NURSE ---
Meds requested from pharmacy, not in ED Overflow Pyxis at this time. Will medicate upon receipt. Meds were previously requested via [employer] (per previous RN Ani Nelson), however, [employer] is down/malfunctioning.
[2025-07-28] MEDS: Mirabegron 50 MG TAB.ER.24H PO (11:13)
[2025-07-28] MEDS: Ferrous Sulfate 324 MG TABLET.DR PO (11:14)
[2025-07-28] MEDS: Insulin Glargine,Hum.rec.anlog 100 UNIT/ML 10 ML VIAL 30 UNIT SUBCUT (11:18)
[2025-07-28 11:24] LABS: Resp Syncy Virus RNA Qual PCR NEGATIVE (Negative); SARS COV2 PCR INHOUSE NEGATIVE (Negative)
--- NOTE | 2025-07-28 11:36 | MHC.CM.ED ---
Addendum entered by Loreta Jesus 07/28/25 12:37: Patient was at [facility] in the past. [facility] is 1st choice. [facility] is able to offer a bed and is in the process of obtaining ins auth. [facility] made aware via telephone at [phone]. Original Note: Received case management consult overnight. Patient came to the ER due to back pain. Work up essentially negative. Physical therapy eval completed. Short term rehab is recommended. Met with patient in regards to discharge planning. Patient lives with her son and granddaughter and has a [employer] through [facility]. Patient states she's been to a rehab in [place] after back surgery but can't remember the name. Patient was hoping to d/c home but understands it's not safe at this time. Patient hoping to return to facility in [place]. If not, agreeable for referral to be broadcasted. Bed offers will be discussed with patient. Continue to monitor for d/c needs.
[2025-07-28] MEDS: oxyCODONE HCl ER 10 MG TAB.ER.12H 30 MG PO ×2 (12:03→20:29)
[2025-07-28 12:30] LABS: Glucose, Whole Blood 236 mg/dL (60-115)
--- NOTE | 2025-07-28 12:30 | PC.NURSE ---
POC Glucose 236, recently medicated with Lantus 30 units per orders. Also medicated with all Rx meds recently, delayed due to several medications not being available in Overflow Pyxis. Oxycontin ER 30mg given AM dose, okayed by ELIZABET Alaniz. Patient normally takes this medication twice daily at home. Per pt, the only medication that has alleviated some discomfort was Valium. Lunch tray provided, currently eating. Care ongoing by this RN. Per PT/CM, rehab recommended, pending bed/facility placement.
[2025-07-28 14:29] VITALS: BP 128/62; PULSE 86; RESP 18; TEMP 36.8; O2SAT 92
--- NOTE | 2025-07-28 15:46 | MHC.CM.ED ---
Insurance auth has been obtained by [place]. Patient can leave tomorrow 07/29 at 1030am. Delbert STEVE booked. Med [facility] with chart. Patient, Edgar MARTINEZ and Ella MCNEAL aware. Continue to monitor for d/c needs.
[2025-07-28 17:00] LABS: Glucose, Whole Blood 264 mg/dL (60-115)
[2025-07-28 20:38] LABS: Glucose, Whole Blood 319 mg/dL (60-115)
[2025-07-28 21:26] VITALS: BP 138/68; PULSE 87; RESP 22; TEMP 36.8; O2SAT 97
[2025-07-29] MEDS: oxyCODONE HCl Immed Release 5 MG TABLET PO (01:32)
[2025-07-29 06:00] VITALS: BP 100/64; PULSE 68; RESP 18; TEMP 36.3; O2SAT 92
[2025-07-29 07:30] LABS: Glucose, Whole Blood 193 mg/dL (60-115)
[2025-07-29] MEDS: Insulin Glargine,Hum.rec.anlog 100 UNIT/ML 10 ML VIAL 30 UNIT SUBCUT (07:44)
[2025-07-29] MEDS: Mirabegron 50 MG TAB.ER.24H PO (07:45)
[2025-07-29] MEDS: oxyCODONE HCl ER 10 MG TAB.ER.12H 30 MG PO (07:45)
[2025-07-29] MEDS: Ferrous Sulfate 324 MG TABLET.DR PO (07:45)
[2025-07-29] MEDS: Lidocaine 4 % Patch ADH..PATCH 1 PATCH TRANSDERMA (07:46)
== END 2025-07-29 10:57 ==
PROVIDERS: Physician Assistant; Physician Assistant Medical; Emergency Provider Emergency Medicine; PCP Family Medicine
DX: M48.56XA Collapsed vertebra, not elsewhere classified, lumbar region, initial encounter for fracture (principal); M54.50 Low back pain, unspecified; I10 Essential (primary) hypertension; E11.9 Type 2 diabetes mellitus without complications; Z03.818 Encounter for observation for suspected exposure to other biological agents ruled out; W19.XXXA Unspecified fall, initial encounter; Y93.9 Activity, unspecified; Y92.9 Unspecified place or not applicable; Y99.9 Unspecified external cause status
CPT/HCPCS: 36415; 70450; 72072; 72100; 72125; 80053; 81001; 82947; 85025; 87637; 96374; 96375; 96376; 97162; 99285; J1171; J1885; J2270

== ENCOUNTER → 2025-07-27 13:25 | Outpatient (BNV) | payer MEDICARE, SELFPAY | PROVIDERS: Emergency Provider Emergency Medicine; Visit Provider Radiology Diagnostic Radiology | DX: M50.30 Other cervical disc degeneration, unspecified cervical region (principal); S09.90XA Unspecified injury of head, initial encounter; M48.56XA Collapsed vertebra, not elsewhere classified, lumbar region, initial encounter for fracture; M51.34 Other intervertebral disc degeneration, thoracic region | CPT/HCPCS: 70450; 72072; 72100; 72125 ==